=== PATIENT | male | born 1945 | race Caucasian/White ===

== ENCOUNTER 2017-10-25 23:57 | Emergency (ER) | payer MEDICARE ==
[~2017-10-25] VITALS: Ht 172.7 cm; Wt 85.0 kg
[2017-10-25] MEDS ORDERED: IOHEXOL 350 MG/ML 10 ML VIAL (for RAD DIAG) IVCONTRAST ONE (23:58)
[2017-10-26 00:17] VITALS: BP 149/85; PULSE 92; RESP 20; TEMP 98.7; O2SAT 97
--- NOTE | 2017-10-26 00:20 | PD ---
HPI Chief Complaint: abdominal swelling and pain Time Seen by Provider: 00:17 Travel History International Travel<30 days: No Contact w/Intl Traveler<30days: No Traveled to known affect area: No History of Present Illness HPI 72-year-old ill patient with history of previous alcohol use, cirrhosis, presents to the ER today for 3-4 weeks history of worsening increase in abdominal girth, leg swelling, and abdominal discomfort. He has been nauseous but denies any vomiting, diarrhea, or fevers. He is feeling fairly uncomfortable and unable to lay down tonight. He denies any chest pains, fevers , or other issues. Modifying Factors: None Associated Signs & Symptoms: Increasing abdominal girth, bilateral leg swelling , abdominal swelling, and discomfort Risk Factors: Cirrhosis PFSH Social History Tobacco Use: No Allergies-Medications (Allergen,Severity, Reaction): Coded Allergies: No Known Allergies (Unverified , 10/26/17) Reported Meds & Prescriptions Reported Meds & Active Scripts Active Reported Spironolactone 25 Mg Tab 25 Mg PO DAILY Finasteride (Finasteride (Alopecia)) 1 Mg Tab 5 Mg PO DAILY Lisinopril 10 Mg Tab 10 Mg PO DAILY Review of Systems Except as stated in HPI: all other systems reviewed are Neg Physical Exam Narrative GENERAL: Well-developed elderly white male patient currently in mild distress. Awake and oriented 3. SKIN: Focused skin assessment warm/dry. HEAD: Atraumatic. Normocephalic. EYES: Pupils equal and round. No scleral icterus. No injection or drainage. ENT: No nasal bleeding or discharge. Mucous membranes pink and moist. NECK: Trachea midline. No JVD. Supple. CARDIOVASCULAR: Regular rate and rhythm. No murmur appreciated. RESPIRATORY: No accessory muscle use. Decreased at the bases with mild basilar crackles bibasilarly. Breath sounds equal bilaterally. GASTROINTESTINAL: Abdomen soft, diffusely tender, moderately distended. Hepatic and splenic margins not palpable. MUSCULOSKELETAL: No obvious deformities. No clubbing. No cyanosis. No edema. NEUROLOGICAL: Awake and alert. No obvious cranial nerve deficits. Motor grossly within normal limits. Normal speech. PSYCHIATRIC: Appropriate mood and affect; insight and judgment normal. Data Data Last Documented VS Vital Signs Date Time Temp Pulse Resp B/P (MAP) Pulse Ox O2 Delivery O2 Flow Rate FiO2 10/26/17 01:30 94 24 153/67 (95) 97 Room Air 10/26/17 00:17 98.7 Orders Orders Complete Blood Count With Diff (10/26/17 00:17) Comprehensive Metabolic Panel (10/26/17 00:17) B-Type Natriuretic Peptide (10/26/17 00:17) Act Partial Throm Time (Ptt) (10/26/17 00:17) Prothrombin Time / Inr (Pt) (10/26/17 00:17) Ckmb (Isoenzyme) Profile (10/26/17 00:17) Troponin I (10/26/17 00:17) Iv Access Insert/Monitor (10/26/17 00:17) Electrocardiogram (10/26/17 00:17) Ecg Monitoring (10/26/17 00:17) Oximetry (10/26/17 00:17) Oxygen Administration (10/26/17 00:17) Chest, Single Ap (10/26/17 00:17) Sodium Chloride 0.9% Flush (Ns Flush) (10/26/17 00:30) Ct Abd/Pel W Iv Contrast(Rout) (10/26/17 00:17) CKMB (10/26/17 00:30) CKMB% (10/26/17 00:30) Iohexol 350 Inj (Omnipaque 350 Inj) (10/25/17 23:58) Furosemide Inj (Lasix Inj) (10/26/17 04:15) Ed Discharge Order (10/26/17 04:23) Labs Laboratory Tests Test 10/26/17 00:30 White Blood Count 5.5 TH/MM3 Red Blood Count 3.49 MIL/MM3 Hemoglobin 12.3 GM/DL Hematocrit 35.7 % Mean Corpuscular Volume 102.3 FL Mean Corpuscular Hemoglobin 35.4 PG Mean Corpuscular Hemoglobin Concent 34.6 % Red Cell Distribution Width 15.8 % Platelet Count 89 TH/MM3 Mean Platelet Volume 8.3 FL Neutrophils (%) (Auto) 40.9 % Lymphocytes (%) (Auto) 45.2 % Monocytes (%) (Auto) 12.1 % Eosinophils (%) (Auto) 1.0 % Basophils (%) (Auto) 0.8 % Neutrophils # (Auto) 2.2 TH/MM3 Lymphocytes # (Auto) 2.5 TH/MM3 Monocytes # (Auto) 0.7 TH/MM3 Eosinophils # (Auto) 0.1 TH/MM3 Basophils # (Auto) 0.0 TH/MM3 CBC Comment AUTO DIFF Differential Comment AUTO DIFF CONFIRMED Platelet Estimate LOW Platelet Morphology Comment NORMAL Prothrombin Time 11.3 SEC Prothromb Time International Ratio 1.1 RATIO Activated Partial Thromboplast Time 26.3 SEC Blood Urea Nitrogen 12 MG/DL Creatinine 0.81 MG/DL Random Glucose 90 MG/DL Total Protein 7.5 GM/DL Albumin 2.7 GM/DL Calcium Level 8.0 MG/DL Alkaline Phosphatase 204 U/L Aspartate Amino Transf (AST/SGOT) 127 U/L Alanine Aminotransferase (ALT/SGPT) 63 U/L Total Bilirubin 1.1 MG/DL Sodium Level 140 MEQ/L Potassium Level 3.8 MEQ/L Chloride Level 105 MEQ/L Carbon Dioxide Level 26.5 MEQ/L Anion Gap 9 MEQ/L Estimat Glomerular Filtration Rate 93 ML/MIN Total Creatine Kinase 354 U/L Creatine Kinase MB 7.1 NG/ML Creatine Kinase MB % 2.0 % Troponin I 0.02 NG/ML B-Type Natriuretic Peptide 18 PG/ML MDM Medical Decision Making Medical Screen Exam Complete: Yes Emergency Medical Condition: Yes Medical Record Reviewed: Yes Interpretation(s) Laboratory Tests Test 10/26/17 00:30 Red Blood Count 3.49 MIL/MM3 (4.50-5.90) Hemoglobin 12.3 GM/DL (13.0-17.0) Hematocrit 35.7 % (39.0-51.0) Mean Corpuscular Volume 102.3 FL (80.0-100.0) Mean Corpuscular Hemoglobin 35.4 PG (27.0-34.0) Platelet Count 89 TH/MM3 (150-450) Lymphocytes (%) (Auto) 45.2 % (9.0-44.0) Monocytes (%) (Auto) 12.1 % (0.0-8.0) Platelet Estimate LOW (NORMAL) Albumin 2.7 GM/DL (3.4-5.0) Calcium Level 8.0 MG/DL (8.5-10.1) Alkaline Phosphatase 204 U/L (45-117) Aspartate Amino Transf (AST/SGOT) 127 U/L (15-37) Total Bilirubin 1.1 MG/DL (0.2-1.0) Total Creatine Kinase 354 U/L (39-308) Creatine Kinase MB 7.1 NG/ML (0.5-3.6) Differential Diagnosis Worsening ascites versus CHF versus acute intra-abdominal processes versus bowel obstruction Narrative Course Labwork shows liver enzyme elevations consistent with his cirrhosis. Patient admits he is still drinking alcohol. CAT scan shows ascites with cirrhosis. No other acute intra-abdominal processes were identified. He apparently had been seen at [facility] for similar symptoms last week as well. Chest x -ray otherwise was unremarkable for any significant pulmonary edema. At this point, my plan would be to give him diuretics for his ascites. He will need to follow-up closely with his primary care physician and stop drinking alcohol. Return for any worsening in symptoms as necessary. The plan has been discussed with him and he states understanding. Diagnosis Primary Impression: Ascites Med/Other Pt SpecificInfo: Prescription(s) given Scripts Furosemide (Lasix) 20 Mg Tab 20 MG PO DAILY, #10 TAB 0 Refills Prov: Treva Lopez MD 10/26/17 Disposition: 01 DISCHARGE HOME Condition: Stable Treva Lopez MD Oct 26, 2017 00:20
[2017-10-26] MEDS ORDERED: LISI10TA3 PO (00:30)
[2017-10-26] MEDS ORDERED: FINA1TAB16 PO (00:30)
[2017-10-26] MEDS ORDERED: SODIUM CHLORIDE 0.9% FLUSH 10 ML FLUSH IVF PRN (00:30)
[2017-10-26] MEDS ORDERED: SPIR25TA PO (00:30)
--- NOTE | 2017-10-26 00:37 | RADRPT ---
EXAM DATE/TIME: 10/26/2017 00:27 [facility] COMPARISON: No previous studies available for comparison. INDICATIONS : Shortness of breath. MEDICAL HISTORY : None. SURGICAL HISTORY : None. ENCOUNTER: Initial ACUITY: 1 day PAIN SCORE: 0/10 LOCATION: Bilateral chest FINDINGS: There is minimal linear density at the lateral left base. The lungs are otherwise clear. The heart si ze is normal. CONCLUSION: Suspected minimal atelectasis at the lateral left base. Sampson New MD on October 26, 2017 at 0:34 Board Certified Radiologist. This report was verified electronically.
[2017-10-26 01:30] VITALS: BP 153/67; PULSE 94; RESP 24; O2SAT 97
[2017-10-26 01:43] LABS: AUTOMATED NEUTROPHIL # 2.2 TH/MM3 (1.8-7.7); BASOPHIL % 0.8 % (0.0-2.0); EOSINOPHIL # 0.1 TH/MM3 (0-0.4); HEMATOCRIT 35.7 % (39.0-51.0); HEMOGLOBIN 12.3 GM/DL (13.0-17.0); LYMPH % 45.2 % (9.0-44.0); LYMPHOCYTE # 2.5 TH/MM3 (1.0-4.8); MEAN CELL VOLUME 102.3 FL (80.0-100.0); MEAN CORPUSCULAR HEMOGLOBIN 35.4 PG (27.0-34.0); MEAN CORPUSCULAR HGB CONC 34.6 % (32.0-36.0); MEAN PLATELET VOLUME 8.3 FL (7.0-11.0); MONO % 12.1 % (0.0-8.0); MONOCYTE # 0.7 TH/MM3 (0-0.9); NEUT % 40.9 % (16.0-70.0); PLATELET COUNT 89 TH/MM3 (150-450); RED BLOOD COUNT 3.49 MIL/MM3 (4.50-5.90); RED CELL DISTRIBUTION WIDTH 15.8 % (11.6-17.2); WHITE BLOOD COUNT 5.5 TH/MM3 (4.0-11.0)
[2017-10-26 01:56] LABS: ALBUMIN 2.7 GM/DL (3.4-5.0); ALT (GPT) 63 U/L (12-78); AST (GOT) 127 U/L (15-37); BICARBONATE 26.5 MEQ/L (21.0-32.0); BLOOD UREA NITROGEN 12 MG/DL (7-18); CHLORIDE 105 MEQ/L (98-107); CREATININE 0.81 MG/DL (0.60-1.30); GLOMERULAR FILTRATION RATE 93 ML/MIN (>89); GLUCOSE,RANDOM 90 MG/DL (74-106); INTERNATIONAL NORMALIZED RATIO 1.1 RATIO; PROTHROMBIN TIME - PATIENT 11.3 SEC (9.8-11.6); SODIUM (NA) 140 MEQ/L (136-145)
[2017-10-26 02:00] LABS: ALKALINE PHOSPHATASE 204 U/L (45-117); TOTAL BILIRUBIN ADULT 1.1 MG/DL (0.2-1.0); TOTAL PROTEIN 7.5 GM/DL (6.4-8.2); TROPONIN I 0.02 NG/ML (0.02-0.05)
--- NOTE | 2017-10-26 03:33 | RADRPT ---
EXAM DATE/TIME: 10/26/2017 03:03 [facility] COMPARISON: No previous studies available for comparison. INDICATIONS : Abdomen pain past 3-4 weeks. IV CONTRAST: 95 cc Omnipaque 350 (iohexol) IV ORAL CONTRAST: No oral contrast ingested. RADIATION DOSE: 10.30 CTDIvol (mGy) MEDICAL HISTORY : Hypertension. SURGICAL HISTORY : Femoral stent ENCOUNTER: Initial ACUITY: 3 weeks PAIN SCALE: 5/10 LOCATION: Bilateral abdomen TECHNIQUE: Volumetric scanning of the abdomen and pelvis was performed. Using automated exposure control and ad justment of the mA and/or kV according to patient size, radiation dose was kept as low as reasonably achievable to obtain optimal diagnostic quality images. DICOM format image data is available electro nically for review and comparison. FINDINGS: LOWER LUNGS: The visualized lower lungs are clear. LIVER: The liver appears small. There is atrophy of the right lobe. SPLEEN: Normal size without lesion. PANCREAS: Within normal limits. KIDNEYS: Normal in size and shape. There is no mass, stone or hydronephrosis. ADRENAL GLANDS: Within normal limits. VASCULAR: There is no aortic aneurysm. Atherosclerotic calcifications are seen. BOWEL/MESENTERY: There is a moderate amount of ascites seen. There appears to be a mild hiatal hernia. There are diver ticula seen throughout the colon being most numerous in the sigmoid region. ABDOMINAL WALL: Within normal limits. RETROPERITONEUM: There is no lymphadenopathy. BLADDER: No wall thickening or mass. REPRODUCTIVE: The prostate is enlarged. Prostatic calcifications are present. INGUINAL: There is no lymphadenopathy or hernia. MUSCULOSKELETAL: Within normal limits for patient age. CONCLUSION: 1. Moderate ascites with morphological changes suggestive of possible cirrhosis with atrophy of the r ight lobe. 2. Colonic diverticula. 3. Mild hiatal hernia. Sampson New MD on October 26, 2017 at 3:26 Board Certified Radiologist. This report was verified electronically.
[2017-10-26] MEDS ORDERED: FUROSEMIDE 40 MG/4 ML VIAL IV PUSH ONE (04:15)
[2017-10-26] MEDS ORDERED: FURO1TAB62 PO (04:29)
[2017-10-26 05:40] VITALS: BP 168/79
--- NOTE | 2017-10-26 12:07 | EKG ---
Date Performed: 10/26/2017 Time Performed: 00:38:36 PTAGE: 72 years EKG: Sinus rhythm INFERIOR MYOCARDIAL INFARCTION ABNORMAL ECG NO PREVIOUS TRACING DOCTOR: Lowell Schofield Interpretating Date/Time 10/26/2017 12:05:29
== END 2017-10-26 05:41 | disposition home or self-care (01) ==
LOC: NEPC 23:57
DX: R18.8 Other ascites (principal); R94.31 Abnormal electrocardiogram [ECG] [EKG]; R06.02 Shortness of breath
CPT/HCPCS: 71045; 74177; 80053; 82550; 82552; 83880; 84484; 85025; 85610; 85730; 93005; 96374; 99285; J1940; Q9967

== ENCOUNTER → 2018-01-01 | Outpatient (CLI) | payer MEDICARE ==
[~2018-01-01] MED LIST: FINA1TAB16 PO; FURO1TAB62 PO; LISI10TA3 PO; SPIR25TA PO
--- NOTE | 2018-01-01 14:42 | RADRPT ---
EXAM DATE/TIME: 01/01/2018 00:00 [facility] COMPARISON: No previous studies available for comparison. OUTSIDE STUDY REVIEWED: INDICATIONS : CT guided liver mass biopsy FINDINGS: Outside CTs and MRI were reviewed. Patient has a cirrhotic appearing liver with moderate ascites . This increases the risk of post biopsy bleeding. In addition, the only lesion that can be identifie d on CT is a small enhancing nodule in the dome. Additional nodules are identified on MRI cannot be v isualized on the CT studies. As such, I do not believe patient would be amenable to CT-guided biopsy at this juncture. RECOMMENDATION: Followup CT scan of the abdomen with and without contrast in 3-6 months Lei Valerio MD on January 01, 2018 at 14:38 Board Certified Radiologist. This report was verified electronically.
== END ==
LOC: HRAD 12:45
PROVIDERS: ATTEND Internal Medicine Hematology & Oncology
DX: K76.9 Liver disease, unspecified (principal)
CPT/HCPCS: 76140

== ENCOUNTER 2018-05-12 07:35 | Observation (INO) ==
[2018-05-12] MEDS ORDERED: Pantoprazole Inj 40 MG Vial IV.PUSH ONE (08:30)
[2018-05-12] MEDS ORDERED: Ketorolac Inj 30 MG/ML (IVP) Vial IV.PUSH ONE (08:30)
[2018-05-12] MEDS ORDERED: Dexamethasone Inj 20 MG/5 ML Vial IV.SIG ONE (08:30)
[2018-05-12] MEDS ORDERED: fentaNYL Citrate Inj 250 MCG/5 ML Ampul ONE (09:46)
[2018-05-12] MEDS ORDERED: DOXOrubicin Inj 10 MG/5 ML VIAL IV.PUSH ONE (10:00)
[2018-05-12] MEDS ORDERED: Heparin 10,000 UNITS/10 ML Vial (for IV use) ONE (10:32)
--- NOTE | 2018-05-12 11:59 | P.RAD ---
Post Procedure Progress Note - Procedure Information Procedure Date: 05/12/18 Supervising Radiologist: Christian Buchanan MD Estimated blood loss (mL): 0 Anesthesia: Conscious Sedation - Plan of Activity Patient to Unit: ROPU Patient Condition: Good See PACS Report for procedural detail/treatment.
[2018-05-12] MEDS ORDERED: Sod Chloride 0.9% Inj 1,000 ML IV.CONT SCH (12:00)
[2018-05-12] MEDS ORDERED: Naloxone Inj 0.4 MG/ML Vial IV.PUSH PRN (12:10)
--- NOTE | 2018-05-12 13:47 | P.CON ---
History of Present Illness Consult date: 05/12/18 Requesting Physician: Christian Buchanan Reason for Consult: Medical management. Primary Care Provider: UNKNOWN Family Provider: Chanda Petit Chief Complaint: Brought in for Chemoembolization History of Present Illness: This is a pleasant 72 y/o male with previous Alcohol abuse, Cirrhosis, who was seen initially in Emergency room due to abdominal distention, for 3-4 weeks history of worsening increase in abdominal girth, leg swelling, and abdominal discomfort. associated Nausea but no vomit, denied diarrhea, or fever , the workup in ER gave Cirrhosis he still drinking alcohol, CAT scan shows ascites with cirrhosis. No other acute intra-abdominal processes were identified. He apparently had been seen at [facility] for similar symptoms last week as well. Chest x-ray otherwise was unremarkable for any significant pulmonary edema. At this point, my plan would be to give him diuretics for his ascites. He will need to follow-up closely with his primary care physician and stop drinking alcohol. he has multiple masses on his liver and with suspected hepatocellular Carcinoma , and high risk for Biopsy was recommended to be followed and receive management by Interventional radiology at this time status post chemoembolization, he will remain in house for 23 hour observation by his Primary interventional insurance plan specialist and discharge, will continue Radiation therapy. Review of Systems All other systems reviewed negative except as stated in HPI PMFSH - History History Provided By: Patient - Medical History Medical History: Medical History (Last Updated 05/12/18 @ 17:08 by Bro Enciso MD) Cataract Arthritis Cirrhosis HTN (hypertension) PVD (peripheral vascular disease) - Surgical History Surgical History: Surgical History (Last Updated 05/12/18 @ 17:09 by Bro Enciso MD) H/O rotator cuff surgery - Family History Family History: Family History (Last Updated 05/12/18 @ 17:10 by Bro Enciso MD) Grandparent No problems noted. Father Family history of acute myocardial infarction Brother Prostate cancer Other Stroke - Tobacco History Second Hand Smoke Exposure: No Tobacco Use In Past 30 Days: No Smoking Status: Former smoker - Alcohol History How Often Do You Have a Drink Containing Alcohol: Never - Substance Use History Substance History: No History of Abuse - Travel History Recent Travel in the [place] Within the Last 8 Weeks: No Recent Travel Out of the Country Within the Last 8 Weeks: No Medications and Allergies Active Medications: Active Medications Sodium Chloride (Ns Inj) 1,000 mls @ 30 mls/hr IV.SIG .Q24H CRYSTAL Sodium Chloride (Ns Inj) 1,000 mls @ 100 mls/hr IV.CONT .Q10H CRYSTAL Stop: 05/12/18 21:59 Hydromorphone/Sodium Chloride (Dilaudid Logistics Planning Engineer Inj) 6 mg in 30 mls @ 0 mls/hr MANUFACTURING PLANT TECHNICIAN UNSCH PRN PRN Reason: per MANUFACTURING PLANT TECHNICIAN parameters Naloxone HCl (Narcan Inj) 0.4 mg IV.PUSH PRN PRN PRN Reason: SEE LABEL COMMENTS Ondansetron HCl (Zofran Inj) 4 mg IV.PUSH Q6H PRN PRN Reason: NAUSEA Allergies Allergy/AdvReac Type Severity Reaction Status Date / Time aspirin Allergy Abdominal Verified 04/30/18 08:06 Pain Penicillins Allergy Drowsiness Verified 04/30/18 08:06 Sulfa (Sulfonamide Allergy Flushing Verified 04/30/18 08:06 Antibiotics) Home Medications Medication Instructions Recorded Confirmed Type finasteride 5 mg PO DAILY 04/30/18 05/12/18 History spironolactone 100 mg PO DAILY 04/30/18 05/12/18 History lisinopril 10 mg PO DAILY 05/12/18 05/12/18 History Physical Exam Vital signs: Vital Signs 05/12/18 07:49 05/12/18 12:00 05/12/18 12:15 Temperature 97.9 F 98.1 F Pulse Rate 80 80 83 Respiratory Rate 20 16 16 Blood Pressure 150/79 H 161/86 H 160/93 H Pulse Oximetry 97 94 L 94 L Intake & Output 05/11/18 05/12/18 05/12/18 18:59 06:59 18:59 Weight 77.467 kg Other: Weight On Admission 77.111 kg Narrative: GENERAL: Well-developed elderly white male patient currently in mild distress. Awake and oriented 3. SKIN: Focused skin assessment warm/dry. HEAD: Atraumatic. Normocephalic. EYES: Pupils equal and round. No scleral icterus. No injection or drainage. ENT: No nasal bleeding or discharge. Mucous membranes pink and moist. NECK: Trachea midline. No JVD. Supple. CARDIOVASCULAR: Regular rate and rhythm. No murmur appreciated. RESPIRATORY: No accessory muscle use. Decreased at the bases with mild basilar crackles bibasilarly. Breath sounds equal bilaterally. GASTROINTESTINAL: Abdomen soft, diffusely tender, moderately distended. MUSCULOSKELETAL: No obvious deformities. No clubbing. No cyanosis. No edema. NEUROLOGICAL: Awake and alert. No obvious cranial nerve deficits. Motor grossly within normal limits. Normal speech. PSYCHIATRIC: Appropriate mood and affect; insight and judgment normal. Assessment and Plan - Plan 1. Suspected Hepatocellular Carcinoma sent by outbound sales specialist Doctor Mark Anthony Live for Interventional Radiology management he has high risk for Biopsy, had today chemoembolization of tumors and will continue Radiation therapy, will be hospitalized for 23 hour observation 2. Cirrhosis stable/Alcoholic Hepatitis 3. . Hypertension controlled continue Home medicines 4. PAD by history DVT prophylaxis SCDs. Code Status: Full Code. Discussed Condition With: patient and Nurse. Discharge Planning: as per Attending physician.
--- NOTE | 2018-05-12 13:50 | IR ---
EXAM DATE: 05/12/2018 12:24 PM EDT AGE/SEX: 72 years / Male INDICATIONS: Patient presents with liver mass in need of chemoembolization of the liver CLINICAL DATA: This is the patient's subsequent encounter. Patient reports that signs and symptoms h ave been present for 1 week and indicates a pain score of 0/10. MEDICAL/SURGICAL HISTORY: . Cirrhosis, HTN, Arthritis, PVD. . Rotator cuff, Left hand surgery. COMPARISON: No prior exams available for comparison. FLUORO TIME (min): 18.8 IMAGE SERIES: 12 ACCESS SITE: Right femoral artery SEDATION TIME (min): 75 CONTRAST (cc): 78 cc Visipaque (iodixanol) MEDICATION(S): 3 mg midazolam (Versed) IV 150 mcg fentanyl (Sublimaze) IV 3,000 units Heparin IV 1 g Vancomycin IV Vancomycin within 2 hrs of procedure, Ancef (or alternative) within 1 hr of procedure. DEVICE(S): Right hepatic artery LC beads Doxorubicin 75mg PROCEDURE : 1. Ultrasound-guided puncture of the access site. 2. Conscious sedation with continuous EKG and Oximetry monitoring. 3. Selective catheter placement in the SMA with selective angiography 4. Subselective catheter placement in the proper hepatic artery through gastroduodenal collaterals f rom the SMA with angiography 5. Super selective catheter placement in the right hepatic artery with angiography 6. Superselective embolization of the right hepatic arteries supplying segment 7. The risks, benefits and alternatives to the procedure were explained and verbal and written consent w as obtained. The site was prepped in sterile fashion. Full sterile technique was used, including ca p, mask, sterile gloves and gown and a large sterile sheet. Hand hygiene and 2% chlorhexidine and/or betadine/alcohol prep was utilized per protocol for cutaneous antisepsis. Sterile gel and sterile p robe cover were utilized for ultrasound guidance. The skin and subcutaneous tissues were infiltrated with local anesthetic solution. With ultrasound and fluoroscopic guidance the selected artery was punctured and a vascular sheath was placed. 4 [place] SOS 3 catheter was advanced into the SMA and angiography was performed. This again confirms finding of celiac occlusion with tortuous collateral recanalization of the gastroduodenal ar peterson and retrograde opacification of the celiac artery. A renegade microcatheter and Fathom 16 wire w ere then successfully advanced through a GDA collaterals from the SMA to the proper hepatic artery. T his was very challenging due to tortuous small-caliber collaterals. Angiography was then performed de monstrating abnormal enhancement near the dome of the liver corresponding to segment [address] e xam. Catheter was therefore repositioned into a right hepatic artery to supply segment 7 [address] [facility] [address] m CT exam was performed. This did not demonstrate appropriate supply the segment 7 masses in the cath eter was therefore repositioned. Repeat Cone beam CT exam was performed now demonstrating supply to t he segment 7 masses. The segmental right hepatic arteries were subsequently embolized with Annabella beads infused with 75 mg of Adriamycin. Postembolization angiography demonstrated near stasis of flow in t he embolized branches. Catheters and wires were therefore removed. The puncture site was closed with manual pressure and hemostasis was obtained. The patient tolerated the procedure well and there were no complications. Conscious sedation was performed with the prescribed dosages and duration as above in the presence of an independent trained radiology nurse to assist in the monitoring of the patient. EKG and oximetry remained stable throughout the procedure. CONCLUSION: 1. Retrograde cannulation of the right hepatic artery via SMA GDA collaterals with superselective DE B TACE embolization of the segment 7 right hepatic arteries (Annabella beads infused with 75 mg of IV Christie amycin). PLAN: Tentative plan for microwave ablation in 7-14 days. Electronically signed by: Christian Buchanan MD 05/12/2018 1:49 PM EDT
[2018-05-12] MEDS: HYDROmorphone PCA Inj 6 MG/30 ML PCA.VIAL PCA PRN (13:51)
[2018-05-12] MEDS: Sod Chloride 0.9% Inj 1,000 ML IV.SIG SCH (21:57)
[2018-05-13 00:09] VITALS: O2SAT 95
[2018-05-13] MEDS: HYDROmorphone PCA Inj 6 MG/30 ML PCA.VIAL PCA PRN (05:02)
[2018-05-13 05:06] VITALS: RESP 16
[2018-05-13] MEDS ORDERED: Lisinopril 10 MG Tablet PO SCH (09:00)
[2018-05-13] MEDS ORDERED: Finasteride 5 MG Tablet PO SCH (09:00)
[2018-05-13] MEDS: Sod Chloride 0.9% Inj 1,000 ML IV.SIG SCH (10:32)
[2018-05-13 10:38] VITALS: PULSE 102
[2018-05-13 10:42] VITALS: BP 164/90; TEMP 98.1
[2018-05-13] MEDS ORDERED: Morphine Inj 4 MG/ML Vial IV.PUSH PRN (11:28)
[2018-05-13] MEDS ORDERED: Naloxone Inj 0.4 MG/ML Vial IV.PUSH PRN ×2 (11:28→11:33)
--- NOTE | 2018-05-13 11:32 | P.PNIM ---
Subjective Interval history: Patient reports the pain is controlled on MATTRESS AND BOXSPRINGS SUPERVISOR. Denies any chest pain or shortness of breath. Denies nausea vomiting. He feels like going home today after pain is controlled. Physical Exam Vital signs: Vital Signs 05/12/18 12:00 05/12/18 12:15 05/12/18 12:30 Temperature 98.1 F Pulse Rate 80 83 82 Respiratory Rate 16 16 16 Blood Pressure 161/86 H 160/93 H 158/85 H Pulse Oximetry 94 L 94 L 95 05/12/18 13:00 05/12/18 14:00 05/12/18 14:30 Temperature Pulse Rate 78 93 H 89 Respiratory Rate 16 20 16 Blood Pressure 157/92 H 140/80 166/80 H Pulse Oximetry 96 97 94 L 05/12/18 15:30 05/12/18 17:35 05/12/18 19:50 Temperature 97.6 F Pulse Rate 89 98 H Respiratory Rate 16 16 16 Blood Pressure 160/78 H 160/87 H Pulse Oximetry 95 93 L 05/12/18 20:00 05/13/18 00:00 05/13/18 04:00 Temperature 97.5 F L 98 F 97.7 F Pulse Rate 106 H 105 H 99 H Respiratory Rate 16 17 16 Blood Pressure 149/83 H 182/89 H 169/88 H Pulse Oximetry 94 L 95 95 05/13/18 06:31 05/13/18 08:00 05/13/18 09:30 Temperature 98.1 F Pulse Rate 102 H Respiratory Rate 16 16 16 Blood Pressure 164/90 H Pulse Oximetry 95 Intake & Output 05/12/18 05/13/18 05/13/18 18:59 06:59 18:59 Intake Total 1100 / 1100 Balance 1100 / 1100 Weight 77.467 kg 79.5 kg Intake: IV 1000 / 1000 NS Inj 1,000 ML @ 100 mls/hr IV 1000 / 1000 .CONT .Q10H CRYST[facility] Rx#:[id number] Oral 100 / 100 Other: # Voids 1 Date of Last Bowel Movement 05/12/18 05/12/18 05/12/18 Weight On Admission 77.111 kg Narrative: GENERAL: Patient sitting up in chair. Appears comfortable. Alert and oriented 3. SKIN: Warm and dry. HEAD: Normocephalic. EYES: No scleral icterus. No injection or drainage. NECK: Supple, trachea midline. No JVD. CARDIOVASCULAR: Regular rate and rhythm without murmurs, gallops, or rubs. RESPIRATORY: Breath sounds equal bilaterally. No accessory muscle use. GASTROINTESTINAL: Abdomen soft, non-tender, nondistended. MUSCULOSKELETAL: No cyanosis, or edema. BACK: Nontender without obvious deformity. No CVA tenderness. Results - Imaging Impressions Embolization, Transcatheter 05/12/18 00:00 CONCLUSION: 1. Retrograde cannulation of the right hepatic artery via SMA GDA collaterals with superselective KRISHNA TACE embolization of the segment 7 right hepatic arteries (Annabella beads infused with 75 mg of IV Adriamycin). PLAN: Tentative plan for microwave ablation in 7-14 days. Assessment and Plan - Plan //Suspected Hepatocellular Carcinoma sent by mortgage servicing specialist Doctor Mark Anthony Live for Interventional Radiology management he has high risk for Biopsy, had today chemoembolization of tumors and will continue Radiation therapy, will be hospitalized for 23 hour observation = Discussed with interventional radiology, who is seen the patient this morning and is cleared for discharge after pain controlled on p.o. regimen. Will switch to by mouth pain regimen. If pain control, can discharge this afternoon. Follow-up with interventional radiology as outpatient as already scheduled. //Cirrhosis stable/Alcoholic Hepatitis //Hypertension controlled continue Home medicines = Some high blood pressures, likely secondary to pain. Home medications this morning. //PAD by history //DVT prophylaxis SCDs. Discussed Condition With: Patient, nurse, interventional radiology
== END 2018-05-13 17:37 | disposition home or self-care (01) ==
LOC: HCIN 07:35 → HROP 07:35 → HRIP 07:36 → HCIN 16:55 → HROP 05-13 17:37
PROVIDERS: ADMIT Internal Medicine; ATTEND Internal Medicine
DX: I77.4 Celiac artery compression syndrome; I10 Essential (primary) hypertension; I73.9 Peripheral vascular disease, unspecified; C22.0 Liver cell carcinoma; K74.60 Unspecified cirrhosis of liver; F10.20 Alcohol dependence, uncomplicated; K70.11 Alcoholic hepatitis with ascites; Z87.891 Personal history of nicotine dependence

== ENCOUNTER 2018-05-21 09:55 | Inpatient (IN) ==
[2018-05-21] MEDS ORDERED: Levofloxacin 500 mg Premix Inj 500 MG/100 ML PIGGYBACK IV.SIG SCH (10:30)
[2018-05-21] MEDS ORDERED: Chlorhexidine Gluconate 2% 1 Pack (2 Cloths) TOPICAL SCH (10:45)
[2018-05-21] MEDS ORDERED: Metoprolol Tartrate 25 MG Tablet PO SCH (10:45)
[2018-05-21] MEDS ORDERED: Sodium Chlor 0.9% Inj 500 ML IV.SIG SCH (11:00)
[2018-05-21 11:05] LABS: Baso % (Auto) 0.3 % (0.0-2.0); Hematocrit 47.5 % (39.0-51.0); Lymph # (Auto) 0.5 th/mm3 (1.0-4.8); Mean Corpuscular HGB Conc 33.7 % (32.0-36.0); Mean Corpuscular Hemoglobin 35.7 pg (27.0-34.0); Mean Corpuscular Volume 105.9 fL (80.0-100.0); Mean Platelet Volume 9.5 fL (7.0-11.0); Mono # (Auto) 0.5 th/mm3 (0.0-0.9); Neut # (Auto) 5.3 th/mm3 (1.8-7.7); Neut % (Auto) 83.7 % (16.0-70.0); Platelet Count 62 th/mm3 (150-450); Red Blood Count 4.49 mil/mm3 (4.50-5.90); Red Cell Distribution Width 15.2 % (11.6-17.2); White Blood Count 6.3 th/mm3 (4.0-11.0)
[2018-05-21 11:16] LABS: Activated Partial Thrombo Time 24.3 sec (24.3-30.1); INR 1.3 Ratio; Prothrombin Time 13.5 sec (9.8-11.6)
[2018-05-21 11:23] LABS: Anion Gap 9 meq/L (5-15); Blood Urea Nitrogen 40 mg/dL (7-18); Calcium 9.2 mg/dL (8.5-10.1); Carbon Dioxide 24.8 meq/L (21.0-32.0); Chloride 94 meq/L (98-107); Glomerular Filtration Rate 60 mL/min (>89); Glucose,Random 83 mg/dL (74-106); Potassium 5.1 meq/L (3.5-5.1); Sodium 128 meq/L (136-145)
[2018-05-21] MEDS ORDERED: Lidocaine 1%/Epinephrine 1:100,000 Inj 20 ML Vial ONE (11:58)
[2018-05-21] MEDS ORDERED: Neostigmine Inj 5 MG/5 ML Syringe IV.PUSH ONE (12:00)
[2018-05-21] MEDS ORDERED: Glycopyrrolate Inj 1 MG/5 ML Syringe IV.PUSH ONE (12:00)
[2018-05-21] MEDS ORDERED: Succinylcholine Inj 100 MG/5 ML Syringe IV.PUSH ONE (12:00)
[2018-05-21] MEDS ORDERED: Lidocaine PF 1% Inj 5 ML Syringe INFILTRATN ONE (12:00)
[2018-05-21 12:56] LABS: Albumin 2.9 g/dL (3.4-5.0); Aspartate Aminotransferase 78 U/L (15-37)
[2018-05-21 12:59] LABS: Alanine Aminotransferase 256 U/L (12-78); Total Protein 7.9 g/dL (6.4-8.2)
[2018-05-21 13:00] LABS: Alkaline Phosphatase 178 U/L (45-117)
[2018-05-21] MEDS ORDERED: fentaNYL Citrate Inj 100 MCG/2 ML Ampul ONE (15:26)
[2018-05-21] MEDS ORDERED: *morphine SULFATE 4 MG/ML PERIprocedure ONLY ONE (15:37)
--- NOTE | 2018-05-21 16:13 | P.RAD ---
Post CT Procedure Prog Note - Procedure Information Procedure Date: 05/21/18 Supervising Radiologist: Christian Buchanan MD Estimated blood loss (mL): 10 Anesthesia: General - Plan of Activity Patient to Unit: PACU Patient condition: Good See PACS Report for procedural detail/treatment.
--- NOTE | 2018-05-21 16:15 | CT ---
EXAM DATE: 05/21/2018 3:54 PM EDT AGE/SEX: 72 years / Male INDICATIONS: 72-year-old male with history of hepatocellular carcinoma in segment 7 and 8 of the [facility] er. Patient is status post Rajiv KRISHNA chemoembolization and now presents for thermal ablation. CLINICAL DATA: This is the patient's initial encounter. Patient reports that signs and symptoms have been present for 1 day and indicates a pain score of 0/10. MEDICAL/SURGICAL HISTORY: Hypertension. Cirrhosis. None. COMPARISON: No prior exams available for comparison. DEVICE(S): . Emprint ablation probe . . PROCEDURE: CT guided microwave ablation The risks, benefits and alternatives to the procedure were explained and verbal and written consent w as obtained. Using automated exposure control and adjustment of the mA and/or kV according to patient size, radiation dose was kept as low as reasonably achievable to obtain optimal diagnostic quality i mages. The site was prepped in sterile fashion. Full sterile technique was used, including cap, mask, sterile gloves and gown and a large sterile sheet. Hand hygiene and 2% chlorhexidine and/or betadine /alcohol prep was utilized per protocol for cutaneous antisepsis. The skin and subcutaneous tissues w ere infiltrated with local anesthetic solution. DICOM format image data is available electronically f or review and comparison. CT examination was performed through the liver. This demonstrates dense RAJIV arterial beads throughou t the posterior right lobe of the liver. The 2.5 cm segment 8 mass near the dome demonstrates periphe ral bead retention. The second 1.9 cm segment 7 mass is not well demonstrated and did not retain suff icient beads to discern from background liver. Therefore, decision was made to proceed with ablation of the segment 8 mass only. A direct window to the mass could not be localized. Therefore, transpleur al window was utilized. A 19-gauge blunt tip stylet was advanced into the pleural space and iatrogeni c hydropneumothorax utilizing approximately 800 cc of sterile water and approximately 200 cc of air w as performed. An 8 [place] catheter was advanced into the pleural space. There was now sufficient wind ow established to the segment 8 mass. Therefore, a iPipelinerint microwave ablation probe was adv anced into the mass under careful CT guidance. Mass was subsequently ablated at 100 W for 5 minutes w ith imaging performed at 2 minutes and 5 minutes demonstrating appropriate progression of the ablatio n zone. Probe was then removed. Approximately 600 cc of slightly serosanguineous fluid was then aspir ated through the pleural catheter and the catheter was subsequently placed on Pleur-evac suction. Fin al postprocedural CT examination demonstrates no significant complications. Patient tolerated the procedure well and there were no immediate postprocedure complications. CONCLUSION: 1. Challenging but technically successful CT-guided microwave ablation requiring iatrogenic hydropne umothorax to establish window to the segment 8 mass. 2. The segment 7 mass did not retain radiodense beads from arterial embolization. Uncertain if this reflects a true lesion and therefore this lesion was not ablated. PLAN: Patient will be admitted for overnight observation and symptom management. Will require follow- up liver mass MRI examination in approximately 6-8 weeks. Will consider additional treatments for the segment 7 mass pending MRI findings. Electronically signed by: Christian Buchanan MD 05/21/2018 4:13 PM EDT
[2018-05-21] MEDS ORDERED: *Enalaprilat Inj 1.25 MG/ML Vial IV.PUSH ONE ×2 (16:18→17:02)
--- NOTE | 2018-05-21 16:27 | P.CON ---
History of Present Illness Consult date: 05/21/18 Requesting Physician: Christian Buchanan Reason for Consult: MEDICAL MANAGEMENT Primary Care Provider: Chanda Petit Family Provider: Chanda Petit Chief Complaint: Brought for Interventional radiology management. History of Present Illness: This is a pleasant 72 y/o male with previous Alcohol abuse, Cirrhosis, who was seen initially in Emergency room due to abdominal distention, for 3-4 weeks history of worsening increase in abdominal girth, leg swelling, and abdominal discomfort. associated Nausea but no vomit, denied diarrhea, or fever , the workup in ER gave Cirrhosis he still drinking alcohol, CAT scan shows ascites with cirrhosis. No other acute intra-abdominal processes were identified. He apparently had been seen at [facility] for similar symptoms last week as well. Chest x-ray otherwise was unremarkable for any significant pulmonary edema. At this point, my plan would be to give him diuretics for his ascites. He will need to follow-up closely with his primary care physician and stop drinking alcohol. he has multiple masses on his liver and with suspected hepatocellular Carcinoma , and high risk for Biopsy was recommended to be followed and receive management by Interventional radiology at this time status post chemoembolization, he will remain in house for 23 hour observation by his Primary interventional mobility specialist and discharge, will continue Radiation therapy. Today brought for Liver Biopsy and Cryoablation of the liver mass due to technical complications was necessary to perform Transpleural approach and left chest tube to the right chest. Review of Systems All other systems reviewed negative except as stated in HPI PMFSH - History History Provided By: Patient - Medical History Medical History: Medical History (Last Updated 05/21/18 @ 10:34 by Charley Santos RN) Cataract (Acute) PVD (peripheral vascular disease) (Acute) Arthritis (Acute) HTN (hypertension) (Acute) Cirrhosis (Acute) - Surgical History Surgical History: Surgical History (Last Updated 05/21/18 @ 10:34 by Charley Santos RN) H/O rotator cuff surgery (Acute) - Family History Family History: Family History (Last Updated 05/12/18 @ 17:10 by Bro Enciso MD) Grandparent No problems noted. Father Family history of acute myocardial infarction Brother Prostate cancer Other Stroke - Tobacco History Second Hand Smoke Exposure: No Smoking Status: Never smoker - Alcohol History How Often Do You Have a Drink Containing Alcohol: Monthly or less - Substance Use History Substance History: No History of Abuse - Travel History Recent Travel in the [place] Within the Last 8 Weeks: No Recent Travel Out of the Country Within the Last 8 Weeks: No Medications and Allergies Active Medications: Active Medications Chlorhexidine Gluconate (Chlorhexidine 2% Cloth) 3 pack TOPICAL [employer]AR[employer]PER[employer] [facility] Stop: 05/24/18 10:31 Sodium Chloride (Ns Inj) 1,000 mls @ 30 mls/hr IV.SIG .Q24H [facility] Levofloxacin/Dextrose (Levaquin 500 Mg Premix Inj) 500 mg in 100 mls @ 100 mls/ hr IV.SIG [employer] [facility] Stop: 05/25/18 10:29 Lactated Ringer's (Lr 1000 Ml Inj) 1,000 mls @ 30 mls/hr IV.SIG .Q24H [facility] Stop: 05/24/18 10:31 Sodium Chloride (Ns Inj) 500 mls @ 30 mls/hr IV.SIG .Q10H [facility] Stop: 05/24/18 10:31 Metoprolol Tartrate (Lopressor) 25 mg PO [employer] [facility] Stop: 05/24/18 10:31 Miscellaneous Information ([facility] [place] Nursing Information) 1 each OTHER UNSCH PRN PRN Reason: SEE LABEL COMMENTS Stop: 05/22/18 15:18 Povidone Iodine (Betadine 5% Antisepsis Kit) 1 applicatio EACH NARE [employer] OPER[employer] [facility] Stop: 05/24/18 10:31 Allergies Allergy/AdvReac Type Severity Reaction Status Date / Time aspirin Allergy Abdominal Verified 05/21/18 10:11 Pain Penicillins Allergy Drowsiness Verified 05/21/18 10:11 Sulfa (Sulfonamide Allergy Flushing Verified 05/21/18 10:11 Antibiotics) Home Medications Medication Instructions Recorded Confirmed Type finasteride 5 mg PO DAILY 04/30/18 05/21/18 History spironolactone 100 mg PO DAILY 04/30/18 05/21/18 History lisinopril 10 mg PO DAILY 05/12/18 05/21/18 History dexamethasone 4 mg PO TID 05/21/18 05/21/18 History lactulose 1 g PO DAILY 05/21/18 05/21/18 History prochlorperazine 10 mg PO TID 05/21/18 05/21/18 History tramadol 50 mg PO Q6H 05/21/18 05/21/18 History Physical Exam Vital signs: Vital Signs 05/21/18 10:26 05/21/18 15:17 05/21/18 15:30 Temperature 98.0 F 97.6 F Pulse Rate 52 L 108 H 80 Respiratory Rate 20 16 16 Blood Pressure 173/86 H 176/78 H 179/82 H Pulse Oximetry 96 97 97 05/21/18 15:45 05/21/18 16:00 05/21/18 16:15 Temperature Pulse Rate 80 78 78 Respiratory Rate 16 16 16 Blood Pressure 173/84 H 162/80 H 176/82 H Pulse Oximetry 95 95 95 Intake & Output 05/20/18 05/21/18 05/21/18 18:59 06:59 18:59 Weight 76.204 kg Other: Weight On Admission 76.204 kg Narrative: GENERAL: Well-developed elderly white male patient currently in mild distress. Awake and oriented 3. SKIN: Focused skin assessment warm/dry. HEAD: Atraumatic. Normocephalic. EYES: Pupils equal and round. No scleral icterus. No injection or drainage. ENT: No nasal bleeding or discharge. Mucous membranes pink and moist. NECK: Trachea midline. No JVD. Supple. CARDIOVASCULAR: Regular rate and rhythm. No murmur appreciated. RESPIRATORY: No accessory muscle use. clear to auscultation bilateral, chest tube on right chest. GASTROINTESTINAL: Abdomen soft, diffusely tender, moderately distended. MUSCULOSKELETAL: No obvious deformities. No clubbing. No cyanosis. No edema. NEUROLOGICAL: Awake and alert. No obvious cranial nerve deficits. Motor grossly within normal limits. Normal speech. PSYCHIATRIC: Appropriate mood and affect; insight and judgment normal. Assessment and Plan - Plan 1. Suspected Hepatocellular Carcinoma sent by extension service specialist in charge Doctor Mark Anthony Live for Interventional Radiology management he has high risk for Biopsy, had today chemoembolization of tumors recently today brought in for Liver biopsy and Cryoablation of the Liver tumor, due to technical difficulty to see the mass was necessary to perform transpleural approach and left right chest tube to correct Hydropneumothorax. 2. Cirrhosis stable/Alcoholic Hepatitis 3. . Hypertension controlled continue Home medicines 4. PAD by history DVT prophylaxis SCDs. Code Status: Full code. Discussed Condition With: Patient and nurse Miss Ortiz. Discharge Planning: As per attending physician.
[2018-05-21 17:33] LABS: Hematocrit 38.2 % (39.0-51.0); Hemoglobin 13.2 gm/dL (13.0-17.0)
[2018-05-21] MEDS: Sod Chloride 0.9% Inj 1,000 ML IV.SIG SCH (21:12)
[2018-05-22 01:18] LABS: Hemoglobin 15.2 gm/dL (13.0-17.0)
--- NOTE | 2018-05-22 08:51 | XR ---
EXAM DATE: 05/22/2018 8:44 AM EDT AGE/SEX: 72 years / Male INDICATIONS: Short of breath, evaluate hydropneumothorax CLINICAL DATA: This is the patient's subsequent encounter. Patient reports that signs and symptoms h ave been present for 2 days and indicates a pain score of 9/10. MEDICAL/SURGICAL HISTORY: Hypertension. Cirrhosis. hepatocellular carcinoma Chest tube, right . COMPARISON: [facility] [place] RF ABLATION VISCERAL, 05/21/2018. . FINDINGS: Pigtail chest tube in the inferior right hemithorax. Minimal airspace disease in the right lung base. No significant residual hydropneumothorax. Cardiomediastinal contours are within normal limits. Osse ous structures are intact. CONCLUSION: 1. Inferior right hemithorax chest tube without significant residual hydropneumothorax. 2. Minimal right lung base atelectasis. Electronically signed by: Christian Buchanan MD 05/22/2018 8:50 AM EDT
[2018-05-22] MEDS: Lisinopril 10 MG Tablet PO SCH (09:53)
[2018-05-22] MEDS: Finasteride 5 MG Tablet PO SCH (09:53)
--- NOTE | 2018-05-22 10:22 | P.PN ---
Subjective Interval history: This is a pleasant 72 y/o male with previous Alcohol abuse, Cirrhosis, who was seen initially in Emergency room due to abdominal distention, for 3-4 weeks history of worsening increase in abdominal girth, leg swelling, and abdominal discomfort. associated Nausea but no vomit, denied diarrhea, or fever , the workup in ER gave Cirrhosis he still drinking alcohol, CAT scan shows ascites with cirrhosis. No other acute intra-abdominal processes were identified. He apparently had been seen at [facility] for similar symptoms last week as well. Chest x-ray otherwise was unremarkable for any significant pulmonary edema. At this point, my plan would be to give him diuretics for his ascites. He will need to follow-up closely with his primary care physician and stop drinking alcohol. he has multiple masses on his liver and with suspected hepatocellular Carcinoma , and high risk for Biopsy was recommended to be followed and receive management by Interventional radiology at this time status post chemoembolization, he will remain in house for 23 hour observation by his Primary interventional network operations specialist and discharge, will continue Radiation therapy. Today brought for Liver Biopsy and Cryoablation of the liver mass due to technical complications was necessary to perform Transpleural approach and left chest tube to the right chest. 05/22: Status post Right chest tube removal by Interventional Radiology having at this time CXR for follow up not yet clear for discharge by his Primary Interventional specialist. no nausea , vomit or diarrhea. Physical Exam Vital signs: Vital Signs 05/21/18 10:26 05/21/18 15:17 05/21/18 15:30 Temperature 98.0 F 97.6 F Pulse Rate 52 L 108 H 80 Respiratory Rate 20 16 16 Blood Pressure 173/86 H 176/78 H 179/82 H Pulse Oximetry 96 97 97 05/21/18 15:45 05/21/18 16:00 05/21/18 16:15 Temperature Pulse Rate 80 78 78 Respiratory Rate 16 16 16 Blood Pressure 173/84 H 162/80 H 176/82 H Pulse Oximetry 95 95 95 05/21/18 16:30 05/21/18 17:00 05/21/18 18:30 Temperature 97.3 F L Pulse Rate 78 76 55 L Respiratory Rate 16 16 16 Blood Pressure 169/80 H 164/77 H 149/72 H Pulse Oximetry 97 98 97 05/21/18 20:00 05/22/18 01:31 05/22/18 04:00 Temperature 97.2 F L 97.2 F L 97.3 F L Pulse Rate 57 L 61 62 Respiratory Rate 18 18 20 Blood Pressure 149/70 H 150/67 H 163/74 H Pulse Oximetry 96 97 95 05/22/18 07:00 05/22/18 08:00 Temperature 98.0 F Pulse Rate 69 Respiratory Rate 20 17 Blood Pressure 169/77 H Pulse Oximetry 97 Intake & Output 05/21/18 05/22/18 05/22/18 18:59 06:59 18:59 Intake Total 360 / 360 Output Total 805 / 805 Balance -445 / -445 Weight 76.204 kg 75.8 kg Intake: Oral 360 / 360 Output: Urine 125 / 125 Urine Amount (Catheter) 580 / 580 Straight 580 / 580 Chest Tube Drainage 100 / 100 Right Upper Mid-Axillary Chest 100 / 100 Other: Weight On Admission 76.204 kg Narrative: GENERAL: Well-developed elderly white male patient currently in mild distress. Awake and oriented 3. SKIN: Focused skin assessment warm/dry. HEAD: Atraumatic. Normocephalic. EYES: Pupils equal and round. No scleral icterus. No injection or drainage. ENT: No nasal bleeding or discharge. Mucous membranes pink and moist. NECK: Trachea midline. No JVD. Supple. CARDIOVASCULAR: systolic heart Murmur, PVCs heard. RESPIRATORY: No accessory muscle use. clear to auscultation bilateral. GASTROINTESTINAL: Abdomen soft, diffusely tender, moderately distended. MUSCULOSKELETAL: No obvious deformities. No clubbing. No cyanosis. No edema. NEUROLOGICAL: Awake and alert. No obvious cranial nerve deficits. Motor grossly within normal limits. Normal speech. PSYCHIATRIC: Appropriate mood and affect; insight and judgment normal. - Urinary Catheter Management Straight Cath placed during this visit: yes, but has since been removed by the nurse Reason for continuing: Decision to DC catheter Insertion date: 05/22/18 Insertion time: 04:00 Removal date: 05/22/18 Removal time: 04:20 Results - Labs CBC & Chem 7: 05/22/18 00:57 05/21/18 10:20 Laboratory Results - last 24 hr 05/21/18 05/21/18 05/21/18 10:20 10:20 10:20 WBC 6.3 RBC 4.49 L Hgb 16.0 Hct 47.5 MCV 105.9 H MCH 35.7 H MCHC 33.7 RDW 15.2 Plt Count 62 L MPV 9.5 Prelim Diff (Auto) Slide review pending Neut % (Auto) 83.7 H Lymph % (Auto) 8.0 L [place] % (Auto) 8.0 Eos % (Auto) 0.0 Baso % (Auto) 0.3 Neut # (Auto) 5.3 Lymph # (Auto) 0.5 L [place] # (Auto) 0.5 Eos # (Auto) 0.0 Baso # (Auto) 0.0 WBC Differential . Diff Scan Auto diff confirmed Differential Comment . PT 13.5 H INR 1.3 APTT 24.3 Sodium 128 L Potassium 5.1 Chloride 94 L Carbon Dioxide 24.8 Anion Gap 9 BUN 40 H Creatinine 1.18 Estimated GFR 60 L Random Glucose 83 Calcium 9.2 Prot Corrected Calcium Total Bilirubin 2.4 H AST 78 H ALT 256 H Alkaline Phosphatase 178 H Total Protein 7.9 Albumin 2.9 L Blood Type Bld Prod Order Comment 05/21/18 05/21/18 05/21/18 10:20 12:10 17:15 WBC RBC Hgb 13.2 D Hct 38.2 L MCV MCH MCHC RDW Plt Count MPV Prelim Diff (Auto) Neut % (Auto) Lymph % (Auto) [place] % (Auto) Eos % (Auto) Baso % (Auto) Neut # (Auto) Lymph # (Auto) [place] # (Auto) Eos # (Auto) Baso # (Auto) WBC Differential Diff Scan Differential Comment PT INR APTT Sodium Cancelled Potassium Cancelled Chloride Cancelled Carbon Dioxide Cancelled Anion Gap Cancelled BUN Cancelled Creatinine Cancelled Estimated GFR Cancelled Random Glucose Cancelled Calcium Cancelled Prot Corrected Calcium Cancelled Total Bilirubin Cancelled AST Cancelled ALT Cancelled Alkaline Phosphatase Cancelled Total Protein Cancelled Albumin Cancelled Blood Type A Negative Bld Prod Order Comment 05/22/18 00:57 WBC RBC Hgb 15.2 D Hct 45.0 MCV MCH MCHC RDW Plt Count MPV Prelim Diff (Auto) Neut % (Auto) Lymph % (Auto) [place] % (Auto) Eos % (Auto) Baso % (Auto) Neut # (Auto) Lymph # (Auto) [place] # (Auto) Eos # (Auto) Baso # (Auto) WBC Differential Diff Scan Differential Comment PT INR APTT Sodium Potassium Chloride Carbon Dioxide Anion Gap BUN Creatinine Estimated GFR Random Glucose Calcium Prot Corrected Calcium Total Bilirubin AST ALT Alkaline Phosphatase Total Protein Albumin Blood Type Bld Prod Order Comment - Imaging Impressions CT Guided Tissue Ablation 05/21/18 00:00 CONCLUSION: 1. Challenging but technically successful CT-guided microwave ablation requiring iatrogenic hydropneumothorax to establish window to the segment 8 mass. 2. The segment 7 mass did not retain radiodense beads from arterial embolization. Uncertain if this reflects a true lesion and therefore this lesion was not ablated. PLAN: Patient will be admitted for overnight observation and symptom management. Will require follow-up liver mass MRI examination in approximately 6 -8 weeks. Will consider additional treatments for the segment 7 mass pending MRI findings. Chest X-Ray 05/22/18 08:14 CONCLUSION: 1. Inferior right hemithorax chest tube without significant residual hydropneumothorax. 2. Minimal right lung base atelectasis. Assessment and Plan - Plan 1. Suspected Hepatocellular Carcinoma sent by business taxes specialist Doctor Mark Anthony Live for Interventional Radiology management he has high risk for Biopsy, had today chemoembolization of tumors recently today brought in for Liver biopsy and Cryoablation of the Liver tumor, due to technical difficulty to see the mass was necessary to perform transpleural approach and left right chest tube to correct Hydropneumothorax. Chest tube removed this morning, improving on new CXR. Following Interventional Radiology recommendations for discharge. 2. Cirrhosis stable/Alcoholic Hepatitis 3. . Hypertension controlled continue Home medicines 4. PAD by history DVT prophylaxis SCDs. Code Status: Full Code. Discussed Condition With: Patient and nurse and MDR. Discharge Planning: Once cleared by Interventional Radiology
[2018-05-22] MEDS: Sod Chloride 0.9% Inj 1,000 ML IV.SIG SCH (12:09)
--- NOTE | 2018-05-22 15:05 | XR ---
EXAM DATE: 05/22/2018 2:09 PM EDT AGE/SEX: 72 years / Male INDICATIONS: Evaluate for pneumothorax, post chest tube removal. CLINICAL DATA: This is the patient's subsequent encounter. Patient reports that signs and symptoms h ave been present for 2 days and indicates a pain score of 0/10. MEDICAL/SURGICAL HISTORY: Hypertension. Cirrhosis. Hepatocellular carcinoma None. Chest tube . [place] [facility] [place]. . FINDINGS: Lucency is seen in right apex suspicious for small right apical pneumothorax. Slight bibasilar atelec tasis is seen. CONCLUSION: Small right apical pneumothorax is suspected. Electronically signed by: Gallo Goldstein MD 05/22/2018 3:04 PM EDT
[2018-05-23 07:26] LABS: Hemoglobin 14.7 gm/dL (13.0-17.0); Mean Corpuscular HGB Conc 34.2 % (32.0-36.0); Mean Corpuscular Hemoglobin 36.2 pg (27.0-34.0); Mean Corpuscular Volume 105.8 fL (80.0-100.0); Mean Platelet Volume 9.1 fL (7.0-11.0); Platelet Count 58 th/mm3 (150-450); Red Blood Count 4.06 mil/mm3 (4.50-5.90); Red Cell Distribution Width 14.9 % (11.6-17.2)
[2018-05-23 07:57] LABS: Calcium 8.4 mg/dL (8.5-10.1); Carbon Dioxide 23.3 meq/L (21.0-32.0); Potassium 6.1 meq/L (3.5-5.1)
[2018-05-23] MEDS: Finasteride 5 MG Tablet PO SCH (08:59)
[2018-05-23] MEDS: Lisinopril 10 MG Tablet PO SCH (08:59)
--- NOTE | 2018-05-23 09:00 | P.PN ---
Subjective Interval history: This is a pleasant 72 y/o male with previous Alcohol abuse, Cirrhosis, who was seen initially in Emergency room due to abdominal distention, for 3-4 weeks history of worsening increase in abdominal girth, leg swelling, and abdominal discomfort. associated Nausea but no vomit, denied diarrhea, or fever , the workup in ER gave Cirrhosis he still drinking alcohol, CAT scan shows ascites with cirrhosis. No other acute intra-abdominal processes were identified. He apparently had been seen at [facility] for similar symptoms last week as well. Chest x-ray otherwise was unremarkable for any significant pulmonary edema. At this point, my plan would be to give him diuretics for his ascites. He will need to follow-up closely with his primary care physician and stop drinking alcohol. he has multiple masses on his liver and with suspected hepatocellular Carcinoma , and high risk for Biopsy was recommended to be followed and receive management by Interventional radiology at this time status post chemoembolization, he will remain in house for 23 hour observation by his Primary interventional medicaid collection specialist and discharge, will continue Radiation therapy. Today brought for Liver Biopsy and Cryoablation of the liver mass due to technical complications was necessary to perform Transpleural approach and left chest tube to the right chest. 05/22: Status post Right chest tube removal by Interventional Radiology having at this time CXR for follow up not yet clear for discharge by his Primary Interventional specialist. 05/23: Seen in his bedroom, no nausea, vomit or diarrhea, already clear for discharge by ID specialist will go home now Physical Exam Vital signs: Vital Signs 05/22/18 10:38 05/22/18 12:00 05/22/18 16:43 Temperature 97.5 F L 97.4 F L Pulse Rate 70 83 Respiratory Rate 18 16 17 Blood Pressure 137/65 140/69 Pulse Oximetry 91 L 94 L 05/22/18 19:28 05/22/18 20:00 05/23/18 00:00 Temperature 97.4 F L 97.3 F L Pulse Rate 74 67 Respiratory Rate 20 22 22 Blood Pressure 178/80 H 170/79 H Pulse Oximetry 96 93 L 05/23/18 04:00 05/23/18 08:00 Temperature 97.7 F 97.6 F Pulse Rate 71 79 Respiratory Rate 22 17 Blood Pressure 154/68 H 160/74 H Pulse Oximetry 93 L 93 L Intake & Output 05/22/18 05/23/1818 18:59 06:59 18:59 Intake Total 500 / 500 Output Total 600 / 600 Balance -600 / -600 500 / 500 Weight 75.7 kg Intake: IV 500 / 500 NS Inj 1,000 ML @ 30 mls/hr IV. 500 / 500 SIG .Q24H [facility] Rx#:[id number] Output: Urine 600 / 600 Other: # Voids 3 # Bowel Movements 1 Narrative: GENERAL: Well-developed elderly white male patient currently in mild distress. Awake and oriented 3. SKIN: Focused skin assessment warm/dry. HEAD: Atraumatic. Normocephalic. EYES: Pupils equal and round. No scleral icterus. No injection or drainage. ENT: No nasal bleeding or discharge. Mucous membranes pink and moist. NECK: Trachea midline. No JVD. Supple. CARDIOVASCULAR: systolic heart Murmur, PVCs heard. RESPIRATORY: No accessory muscle use. clear to auscultation bilateral. GASTROINTESTINAL: Abdomen soft, diffusely tender, moderately distended. MUSCULOSKELETAL: No obvious deformities. No clubbing. No cyanosis. No edema. NEUROLOGICAL: Awake and alert. No obvious cranial nerve deficits. Motor grossly within normal limits. Normal speech. PSYCHIATRIC: Appropriate mood and affect; insight and judgment normal. - Urinary Catheter Management Straight Cath placed during this visit: yes, but has since been removed by the nurse Reason for continuing: Decision to DC catheter Insertion date: 05/22/18 Insertion time: 04:00 Removal date: 05/22/18 Removal time: 04:20 Results - Labs CBC & Chem 7: 05/23/18 06:33 05/23/18 06:33 Laboratory Results - last 24 hr 05/21/18 05/23/18 05/23/18 12:10 06:33 06:33 WBC 6.0 RBC 4.06 L Hgb 14.7 Hct 43.0 MCV 105.8 H MCH 36.2 H MCHC 34.2 RDW 14.9 Plt Count 58 L MPV 9.1 Sodium 128 L Potassium 6.1 H D Chloride 97 L Carbon Dioxide 23.3 Anion Gap 8 BUN 51 H Creatinine 0.95 Estimated GFR 77 L Random Glucose 95 Calcium 8.4 L D Blood Type A Negative Bld Prod Order Comment - Imaging Impressions Chest X-Ray 05/22/18 00:00 CONCLUSION: Small right apical pneumothorax is suspected. Assessment and Plan - Plan 1. Suspected Hepatocellular Carcinoma sent by icu specialist Doctor Mark Anthony Live for Interventional Radiology management he has high risk for Biopsy, had today chemoembolization of tumors recently today brought in for Liver biopsy and Cryoablation of the Liver tumor, due to technical difficulty to see the mass was necessary to perform transpleural approach and left right chest tube to correct Hydropneumothorax. Chest tube removed this morning, improving on new CXR. okay from IR specialist for discharge. 2. Cirrhosis stable/Alcoholic Hepatitis 3. . Hypertension controlled continue Home medicines 4. PAD by history 5. Hyperkalemia will give him Kayexalate 30 grams and follow potassium level. will discharge after his Potassium is in normal range. DVT prophylaxis SCDs. Code Status: Full Code Discussed Condition With: patient and nurse. Discharge Planning: Once cleared by Interventional Radiology
[2018-05-23] MEDS ORDERED: Sodium Polystyrene Sulfonate/Sorbitol Liq 15 GM/60 ML UDC PO ONE (11:00)
[2018-05-23] MEDS: Sod Chloride 0.9% Inj 1,000 ML IV.SIG SCH (14:41)
[2018-05-23 16:08] LABS: Calcium 8.9 mg/dL (8.5-10.1); Carbon Dioxide 24.4 meq/L (21.0-32.0); Potassium 5.7 meq/L (3.5-5.1)
[2018-05-23] MEDS: amLODIPine 5 MG Tablet PO SCH (18:08)
[2018-05-24] MEDS: amLODIPine 5 MG Tablet PO SCH (08:34)
[2018-05-24] MEDS: Lisinopril 10 MG Tablet PO SCH (08:34)
[2018-05-24] MEDS: Finasteride 5 MG Tablet PO SCH (08:34)
--- NOTE | 2018-05-24 09:54 | P.PN ---
Subjective Interval history: This is a pleasant 72 y/o male with previous Alcohol abuse, Cirrhosis, who was seen initially in Emergency room due to abdominal distention, for 3-4 weeks history of worsening increase in abdominal girth, leg swelling, and abdominal discomfort. associated Nausea but no vomit, denied diarrhea, or fever , the workup in ER gave Cirrhosis he still drinking alcohol, CAT scan shows ascites with cirrhosis. No other acute intra-abdominal processes were identified. He apparently had been seen at [facility] for similar symptoms last week as well. Chest x-ray otherwise was unremarkable for any significant pulmonary edema. At this point, my plan would be to give him diuretics for his ascites. He will need to follow-up closely with his primary care physician and stop drinking alcohol. he has multiple masses on his liver and with suspected hepatocellular Carcinoma , and high risk for Biopsy was recommended to be followed and receive management by Interventional radiology at this time status post chemoembolization, he will remain in house for 23 hour observation by his Primary interventional campaign management specialist and discharge, will continue Radiation therapy. Today brought for Liver Biopsy and Cryoablation of the liver mass due to technical complications was necessary to perform Transpleural approach and left chest tube to the right chest. 05/22: Status post Right chest tube removal by Interventional Radiology having at this time CXR for follow up not yet clear for discharge by his Primary Interventional specialist. 05/23: Seen in his bedroom, already clear for discharge by ID specialist. 05/24: Was not possible to discharge yesterday due to Hyperkalemia, given Kayexalate and removed Spironolactone today his Potassium improved to 5.7 but will need to follow by his Primary sales recruitment specialist due to probable Hypokalemia will need Potassium replacement, I think this because his Potassium was below 4 in the past but he continue On Lisinopril and added Amlodipine for blood pressure that was also uncontrolled probable pain was a factor. at this time no nausea, vomit or diarrhea. Physical Exam Vital signs: Vital Signs 05/23/18 12:00 05/23/18 15:11 05/23/18 20:00 Temperature 97.3 F L 97.6 F 97.5 F L Pulse Rate 76 86 77 Respiratory Rate 18 18 18 Blood Pressure 192/86 H 168/82 H 148/67 H Pulse Oximetry 94 L 95 95 05/24/18 00:00 05/24/18 08:00 Temperature 97.7 F 98.5 F Pulse Rate 81 110 H Respiratory Rate 18 18 Blood Pressure 179/84 H 125/74 Pulse Oximetry 94 L 94 L Intake & Output 05/23/18 05/24/18 05/24/18 18:59 06:59 18:59 Intake Total 500 / 500 500 / 500 Output Total 800 / 800 600 / 600 Balance -300 / -300 -100 / -100 Weight 74.6 kg Intake: IV 500 / 500 500 / 500 NS Inj 1,000 ML @ 30 mls/hr IV. 500 / 500 500 / 500 SIG .Q24H [facility] Rx#:[id number] Output: Urine 800 / 800 600 / 600 Other: Date of Last Bowel Movement 05/23/18 # Bowel Movements 1 Narrative: GENERAL: Well-developed elderly white male patient currently in mild distress. Awake and oriented 3. SKIN: Focused skin assessment warm/dry. HEAD: Atraumatic. Normocephalic. EYES: Pupils equal and round. No scleral icterus. No injection or drainage. ENT: No nasal bleeding or discharge. Mucous membranes pink and moist. NECK: Trachea midline. No JVD. Supple. CARDIOVASCULAR: systolic heart Murmur, PVCs heard. RESPIRATORY: No accessory muscle use. clear to auscultation bilateral. GASTROINTESTINAL: Abdomen soft, diffusely tender, moderately distended. MUSCULOSKELETAL: No obvious deformities. No clubbing. No cyanosis. No edema. NEUROLOGICAL: Awake and alert. No obvious cranial nerve deficits. Motor grossly within normal limits. Normal speech. PSYCHIATRIC: Appropriate mood and affect; insight and judgment normal. - Urinary Catheter Management Straight Cath placed during this visit: yes, but has since been removed by the nurse Reason for continuing: Decision to DC catheter Insertion date: 05/22/18 Insertion time: 04:00 Removal date: 05/22/18 Removal time: 04:20 Results - Labs CBC & Chem 7: 05/23/18 06:33 05/23/18 14:40 Laboratory Results - last 24 hr 05/23/18 14:40 Sodium 130 L Potassium 5.7 H Chloride 96 L Carbon Dioxide 24.4 Anion Gap 10 BUN 53 H Creatinine 1.20 Estimated GFR 59 L Random Glucose 99 Calcium 8.9 Assessment and Plan - Plan 1. Suspected Hepatocellular Carcinoma sent by sales recruitment specialist Doctor Mark Anthony Live for Interventional Radiology management he has high risk for Biopsy, had today chemoembolization of tumors recently today brought in for Liver biopsy and Cryoablation of the Liver tumor, due to technical difficulty to see the mass was necessary to perform transpleural approach and left right chest tube to correct Hydropneumothorax. Chest tube removed this morning, improving on new CXR. okay from IR specialist for discharge. 2. Cirrhosis stable/Alcoholic Hepatitis 3. . Hypertension Uncontrolled yesterday made some changes to his Medicines, continue on AYUSH inhibitor low dose and added Amlodipine and removed Spironolactone due to Hyperkalemia over 6 will need to follow with his Primary Care Physician and with sales recruitment specialist to adjust this medicines. 4. PAD by history 5. Hyperkalemia better will need to follow now that is off Spironolactone. DVT prophylaxis SCDs. Code Status: Full code Discussed Condition With: Patient and Nurse. Discharge Planning: Discharge home today.
--- NOTE | 2018-05-24 09:59 | P.DS ---
Date of admission: 05/22/18 13:09 Primary care physician: Chanda Petit Attending physician on discharge: Bro Enciso Anticipated date of discharge: 05/24/18 Brief History from admission: This is a pleasant 72 y/o male with previous Alcohol abuse, Cirrhosis, who was seen initially in Emergency room due to abdominal distention, for 3-4 weeks history of worsening increase in abdominal girth, leg swelling, and abdominal discomfort. associated Nausea but no vomit, denied diarrhea, or fever , the workup in ER gave Cirrhosis he still drinking alcohol, CAT scan shows ascites with cirrhosis. No other acute intra-abdominal processes were identified. He apparently had been seen at [facility] for similar symptoms last week as well. Chest x-ray otherwise was unremarkable for any significant pulmonary edema. At this point, my plan would be to give him diuretics for his ascites. He will need to follow-up closely with his primary care physician and stop drinking alcohol. he has multiple masses on his liver and with suspected hepatocellular Carcinoma , and high risk for Biopsy was recommended to be followed and receive management by Interventional radiology at this time status post chemoembolization, he will remain in house for 23 hour observation by his Primary interventional ict security specialist and discharge, will continue Radiation therapy. Today brought for Liver Biopsy and Cryoablation of the liver mass due to technical complications was necessary to perform Transpleural approach and left chest tube to the right chest. DS: Diagnosis - Discharge Diagnosis (1) Arthritis Status: Acute (2) Cataract Status: Acute (3) Cirrhosis Status: Acute (4) H/O rotator cuff surgery Status: Acute (5) HTN (hypertension) Status: Acute (6) PVD (peripheral vascular disease) Status: Acute DS: Summary Hospital Course: This is a pleasant 72 y/o male with previous Alcohol abuse, Cirrhosis, who was seen initially in Emergency room due to abdominal distention, for 3-4 weeks history of worsening increase in abdominal girth, leg swelling, and abdominal discomfort. associated Nausea but no vomit, denied diarrhea, or fever , the workup in ER gave Cirrhosis he still drinking alcohol, CAT scan shows ascites with cirrhosis. No other acute intra-abdominal processes were identified. He apparently had been seen at [facility] for similar symptoms last week as well. Chest x-ray otherwise was unremarkable for any significant pulmonary edema. At this point, my plan would be to give him diuretics for his ascites. He will need to follow-up closely with his primary care physician and stop drinking alcohol. he has multiple masses on his liver and with suspected hepatocellular Carcinoma , and high risk for Biopsy was recommended to be followed and receive management by Interventional radiology at this time status post chemoembolization, he will remain in house for 23 hour observation by his Primary interventional ict security specialist and discharge, will continue Radiation therapy. Today brought for Liver Biopsy and Cryoablation of the liver mass due to technical complications was necessary to perform Transpleural approach and left chest tube to the right chest. 05/22: Status post Right chest tube removal by Interventional Radiology having at this time CXR for follow up not yet clear for discharge by his Primary Interventional specialist. 05/23: Seen in his bedroom, already clear for discharge by ID specialist. 05/24: Was not possible to discharge yesterday due to Hyperkalemia, given Kayexalate and removed Spironolactone today his Potassium improved to 5.7 but will need to follow by his Primary drilling fluids specialist due to probable Hypokalemia will need Potassium replacement, I think this because his Potassium was below 4 in the past but he continue On Lisinopril and added Amlodipine for blood pressure that was also uncontrolled probable pain was a factor. at this time no nausea, vomit or diarrhea. Assessment and Plan - Plan 1. Suspected Hepatocellular Carcinoma sent by drilling fluids specialist Doctor Mark Anthony Live for Interventional Radiology management he has high risk for Biopsy, had today chemoembolization of tumors recently today brought in for Liver biopsy and Cryoablation of the Liver tumor, due to technical difficulty to see the mass was necessary to perform transpleural approach and left right chest tube to correct Hydropneumothorax. Chest tube removed this morning, improving on new CXR. okay from IR specialist for discharge. 2. Cirrhosis stable/Alcoholic Hepatitis 3. . Hypertension Uncontrolled yesterday made some changes to his Medicines, continue on AYUSH inhibitor low dose and added Amlodipine and removed Spironolactone due to Hyperkalemia over 6 will need to follow with his Primary Care Physician and with drilling fluids specialist to adjust this medicines. 4. PAD by history 5. Hyperkalemia better will need to follow now that is off Spironolactone. DVT prophylaxis SCDs. Code Status: Full code Discussed Condition With: Patient and Nurse. Discharge Planning: Discharge home today. - Time Spent with Patient Total time spent providing and/or coordinating discharge services: Less than 30 minutes - Quality: VTE Deep Vein Thrombosis/Pulmonary Embolism Present on Admission: No Exam Vital signs: Vital Signs 05/23/18 12:00 05/23/18 15:11 05/23/18 20:00 Temperature 97.3 F L 97.6 F 97.5 F L Pulse Rate 76 86 77 Respiratory Rate 18 18 18 Blood Pressure 192/86 H 168/82 H 148/67 H Pulse Oximetry 94 L 95 95 05/24/18 00:00 05/24/18 08:00 Temperature 97.7 F 98.5 F Pulse Rate 81 110 H Respiratory Rate 18 18 Blood Pressure 179/84 H 125/74 Pulse Oximetry 94 L 94 L Intake & Output 05/23/18 05/24/18 05/24/18 18:59 06:59 18:59 Intake Total 500 / 500 500 / 500 Output Total 800 / 800 600 / 600 Balance -300 / -300 -100 / -100 Weight 74.6 kg Intake: IV 500 / 500 500 / 500 NS Inj 1,000 ML @ 30 mls/hr IV. 500 / 500 500 / 500 SIG .Q24H [facility] Rx#:[id number] Output: Urine 800 / 800 600 / 600 Other: Date of Last Bowel Movement 05/23/18 # Bowel Movements 1 Narrative: GENERAL: Well-developed elderly white male patient currently in mild distress. Awake and oriented 3. SKIN: Focused skin assessment warm/dry. HEAD: Atraumatic. Normocephalic. EYES: Pupils equal and round. No scleral icterus. No injection or drainage. ENT: No nasal bleeding or discharge. Mucous membranes pink and moist. NECK: Trachea midline. No JVD. Supple. CARDIOVASCULAR: systolic heart Murmur, PVCs heard. RESPIRATORY: No accessory muscle use. clear to auscultation bilateral. GASTROINTESTINAL: Abdomen soft, diffusely tender, moderately distended. MUSCULOSKELETAL: No obvious deformities. No clubbing. No cyanosis. No edema. NEUROLOGICAL: Awake and alert. No obvious cranial nerve deficits. Motor grossly within normal limits. Normal speech. PSYCHIATRIC: Appropriate mood and affect; insight and judgment normal. Results Procedures completed during hospitalization: Liver biopsy and Cryoablation of the Liver tumor, due to technical difficulty to see the mass was necessary to perform transpleural approach and left right chest tube to correct Hydropneumothorax. Labs on day of discharge: Labs from last 24 hours 05/23/18 14:40 Sodium 130 L Potassium 5.7 H Chloride 96 L Carbon Dioxide 24.4 Anion Gap 10 BUN 53 H Creatinine 1.20 Estimated GFR 59 L Random Glucose 99 Calcium 8.9 - Impressions ITS Impressions CT Guided Tissue Ablation 05/21/18 00:00 CONCLUSION: 1. Challenging but technically successful CT-guided microwave ablation requiring iatrogenic hydropneumothorax to establish window to the segment 8 mass. 2. The segment 7 mass did not retain radiodense beads from arterial embolization. Uncertain if this reflects a true lesion and therefore this lesion was not ablated. PLAN: Patient will be admitted for overnight observation and symptom management. Will require follow-up liver mass MRI examination in approximately 6 -8 weeks. Will consider additional treatments for the segment 7 mass pending MRI findings. Chest X-Ray 05/22/18 08:14 CONCLUSION: 1. Inferior right hemithorax chest tube without significant residual hydropneumothorax. 2. Minimal right lung base atelectasis. Discharge Plan - Discharge Disposition Patient Disposition: 01 Discharge Home - Discharge Condition Condition: Good - Discharge Order Discharge Orders: Discharge Order (Routine); Ordered 05/24/18 Ordered By: Bro Enciso Radiologist Clear for Discharge (Routine); Ordered 05/22/18 Ordered By: Christian Buchanan - Discharge Details Anticipated Discharge Date: 05/23/18 Discharge Comment: Follow up as scheduled with Interventional Radiology and drilling fluids specialist. - Physicians Team Attending Provider: Bro Enciso Other Providers: Bro Enciso MD - Rxs /Orders / Referrals /Forms Prescriptions: New amlodipine [Norvasc] 5 mg Tablet 5 mg PO DAILY Qty: 30 RF: 0 Continue dexamethasone 4 mg Tablet 4 mg PO TID finasteride 5 mg Tablet 5 mg PO DAILY lactulose 10 gram/15 mL Solution 1 g PO DAILY lisinopril 10 mg Tablet 10 mg PO DAILY oxycodone 5 mg Tablet 5 mg PO Q4H PRN (Reason: Pain) Qty: 18 RF: 0 prochlorperazine 10 mg PO TID tramadol 50 mg Tablet 50 mg PO Q6H Discontinued spironolactone 100 mg Tablet 100 mg PO DAILY Referrals: Chanda Petit [Other] - See Instructions
--- NOTE | 2018-05-24 13:59 | XR ---
EXAM DATE: 05/24/2018 1:56 PM EDT AGE/SEX: 72 years / Male INDICATIONS: Short of breath CLINICAL DATA: This is the patient's subsequent encounter. Patient reports that signs and symptoms h ave been present for 4 - 6 days and indicates a pain score of Nonresponsive. MEDICAL/SURGICAL HISTORY: . chronic airway obstruction, Hypertension. Cirrhosis. Hepatocellular carcinoma None. COMPARISON: [facility], CHEST 1V SINGLE AP, 05/22/2018. . FINDINGS: Single AP view of the chest. Lungs are clear. Cardiomediastinal silhouette within normal limits. No e vidence of pleural effusion or pneumothorax. CONCLUSION: No acute cardiopulmonary disease identified. Electronically signed by: Julio Katz MD 05/24/2018 1:58 PM EDT
[2018-05-24] MEDS: Sod Chloride 0.9% Inj 1,000 ML IV.SIG SCH (14:32)
[2018-05-24] MEDS ORDERED: Diatrizoate Meglum/Diatrizoate Sod Liq 9 ML UDC PO ONE (15:30)
--- NOTE | 2018-05-24 15:33 | MB ---
cc: Santos Mcdaniel MD DATE: 05/24/2018 ATTENDING PHYSICIAN: Dr. Enciso. REASON FOR CONSULTATION: Oncology consulted for opinion on patient with hepatocellular carcinoma. HISTORY OF PRESENT ILLNESS: The patient is a 72-year-old male with history of alcohol-induced cirrhosis and hepatocellular carcinoma, admitted after he developed hydropneumothorax for microwave ablation of the hepatocellular carcinoma. The patient is lethargic and mildly confused. He is not able to provide a detailed history. Apparently, he was diagnosed with hepatocellular carcinoma and had transarterial chemoembolization done by Interventional Radiology on 05/12/2018. He was brought in on 05/21/2018 for radiofrequency ablation. The procedure was technically difficult, and the patient required iatrogenic hydropneumothorax to reach the liver mass. A chest tube was placed, and the patient was admitted. The chest tube was removed. Subsequently, he was supposed to be discharged today. However this morning, the patient reportedly had a large bowel movement. He was also noted to have hyperkalemia. He is more lethargic. However, there is no report of fever. The patient denies any chest pain. He denies any shortness of breath. He denies any nausea or vomiting. He has some tenderness in the right upper quadrant. He does deny any change in urinary habits. PAST MEDICAL HISTORY: 1. Hepatocellular carcinoma. 2. Alcohol-induced cirrhosis. 3. Cataracts. 4. Peripheral vascular disease. 5. Arthritis. 6. Hypertension. PAST SURGICAL HISTORY: Left rotator cuff surgery. FAMILY HISTORY: Positive for coronary artery disease. One brother had prostate cancer. SOCIAL HISTORY: Quit alcohol in August. He denies tobacco use. ALLERGIES: SULFA, PENICILLIN, ASPIRIN. MEDICATIONS: Norvasc, Decadron, Proscar, lactulose, Levaquin, lisinopril. REVIEW OF SYSTEMS: CONSTITUTIONAL: The patient has generalized weakness and fatigue. He denies any weight loss. EYES: Negative. ENT: Negative. CARDIOVASCULAR: No chest pressure or palpitations. RESPIRATORY: As above. GI: As above. : Negative. MUSCULOSKELETAL: Negative. HEMATOLOGIC: Negative. ENDOCRINE: Negative. PSYCHIATRIC: As above. NEUROLOGIC: As above. PHYSICAL EXAMINATION: VITAL SIGNS: Temperature 98.5, blood pressure 125/74, O2 saturation 94% on 2 L nasal cannula. GENERAL: He is lethargic. He is not oriented to place. HEENT: Atraumatic, normocephalic. Pupils are equal, round, reactive to light. Oropharynx: Dry mucosa. NECK: No thyromegaly. LYMPHATIC: No palpable cervical, clavicular, axillary nodes. HEART: Regular S1, S2. No murmur. LUNGS: Clear to auscultation anteriorly. ABDOMEN: Soft. There is soreness and tenderness in the right upper quadrant. No rebound, no rigidity. Positive bowel sounds. EXTREMITIES: No cyanosis or clubbing. Trace ankle edema. SKIN: No rash. No petechia. Mildly jaundice. NEUROLOGIC: No focal deficit. LABORATORY DATA: WBC 6, hemoglobin 14.7, platelet count 58. Chemistry: Creatinine 1.2. ASSESSMENT: 1. Hepatocellular carcinoma. He has a history of alcohol-induced cirrhosis. He had a transarterial chemoembolization on 05/12/2018. He had radiofrequency ablation to a lesion in segment 8 on 05/21/2018. He has some tenderness in the right upper quadrant. He has not had liver function tests since 05/21/2018. Repeat test is pending at this time. 2. Mental status change. He was supposed to be discharged this morning. However reportedly, he had a large bowel movement and diarrhea. He became lethargic and mildly confused. This could be hepatic encephalopathy. We will check ammonia level. The patient has been on lactulose. We will also need to rule out infection. The patient has tenderness in the right upper quadrant. We will get a CT of the abdomen and head for further evaluation. We will also need to check a urinalysis. 3. Peripheral vascular disease. 4. Arthritis. 5. Hypertension. RECOMMENDATIONS: 1. Repeat liver function tests and ammonia level. 2. Check urinalysis. 3. Get CT abdomen and head. 4. Discussed case with Dr. Enciso. Thank you, Dr. Enciso, for asking me to see this patient. MD ANABEL Naqvi/portia , 02:14 PM , 02:28 PM [facility]
[2018-05-24 17:43] LABS: Bacteria,Urine Many /hpf; Bilirubin,Urine Negative (Negative); Clarity,Urine Cloudy (Clear); Color,Urine Amber (Yellw/Straw); Glucose,Urine (UA) Negative (Negative); Leukocyte Esterase,Urine Trace (Negative); Mucus,Urine Many /lpf (Occasional); Nitrite,Urine Negative (Negative); Specific Gravity,Urine 1.019 (1.002-1.035); Squamous Epithelial Cell,Urine 3 /hpf (0-5); Urobilinogen,Urine 4 or Greater mg/dL (Less than 2)
--- NOTE | 2018-05-24 18:32 | CT ---
EXAM DATE: 05/24/2018 6:22 PM EDT AGE/SEX: 72 years / Male INDICATIONS: Stroke alert, dysphasia. CLINICAL DATA: This is the patient's initial encounter. Patient reports that signs and symptoms have been present for 1 day and indicates a pain score of Nonresponsive. MEDICAL/SURGICAL HISTORY: Non-responsive. Non-responsive. RADIATION DOSE: 10.38 CTDI (mGy) ; Combined studies COMPARISON: [facility] [place], CT HEAD W/O CONTRAST, 05/24/2018. . TECHNIQUE: Volumetric scanning was performed using a multi-row detector CT scanner during bolus infu patricia of 75 ml Visipaque 320 (iodixanol) nonionic water-soluble contrast as a cumulative dose for mul tiple exams. The data was post processed with a variety of visualization algorithms including full volume maximum intensity projection, multi-planar sliding thin slab reformation, curved planar reform ation, and surface rendering techniques. Using automated exposure control and adjustment of the mA a nd/or kV according to patient size, radiation dose was kept as low as reasonably achievable to obtain optimal diagnostic quality images. DICOM format image data is available electronically for review a nd comparison. FINDINGS: There is excellent visualization of the major intracranial arteries out to the second-order branch ve ssels. There is satisfactory opacification and flow in the proximal intracranial vessels. There are no steno -occlusive changes. There are no intraluminal filling defects. There is no evidence of aneurysm or va scular displacement. CONCLUSION: 1. No evidence of proximal intracranial steno-occlusive disease or intraluminal filling defect. 2. No evidence of aneurysm, vascular malformation or vasculopathy. Electronically signed by: Chuy Acevedo MD 05/24/2018 6:30 PM EDT
--- NOTE | 2018-05-24 18:39 | CT ---
EXAM DATE: 05/24/2018 6:18 PM EDT AGE/SEX: 72 years / Male INDICATIONS: Stroke alert, dysphasia. CLINICAL DATA: This is the patient's initial encounter. Patient reports that signs and symptoms have been present for 1 day and indicates a pain score of Nonresponsive. MEDICAL/SURGICAL HISTORY: Non-responsive. Non-responsive. RADIATION DOSE: 10.38 CTDI (mGy) ; Combined studies COMPARISON: No prior exams available for comparison. TECHNIQUE: Volumetric scanning was performed using a multirow detector CT scanner during bolus infus ion of 75 ml Visipaque 320 (iodixanol) nonionic water-soluble contrast as a cumulative dose for mult iple exams. The data was postprocessed with a variety of visualization algorithms including full-vo lume maximum intensity projection, multiplanar sliding thin-slab reformation, curved-planar reformati on, and surface-rendering techniques. Using automated exposure control and adjustment of the mA and/ or kV according to patient size, radiation dose was kept as low as reasonably achievable to obtain op timal diagnostic quality images. DICOM format image data is available electronically for review and comparison. FINDINGS: Aortic Arch: There is a three-vessel origin of the great vessels from the aorta. Heavily calcified p laque is identified at the origin of the left subclavian artery. There is moderate to severe stenosis in the 50-69% range. Right Carotid: Calcified plaque is identified in the proximal internal carotid artery. There is mode rate to severe luminal stenosis in the 50-69% range. Left Carotid: Eccentric plaque is identified in the proximal internal carotid artery. There is mild- to-moderate stenosis in the 30-49% range. Vertebrals: The vertebral arteries have a symmetric diameter. No stenotic lesions are seen. Percent stenosis is calculated using the diameter of the stenotic region over the diameter of the nor mal distal internal carotid artery. CONCLUSION: 1. Significant plaque identified in both carotid bifurcations with moderate to severe stenosis in th e proximal right ICA and mild to moderate stenosis in the proximal left ICA. 2. Moderate to severe stenosis at the origin of the left subclavian artery secondary to calcified pl aque. Degree of narrowing is in the 50-69% range. 3. Patent vertebral arteries. Electronically signed by: Chuy Acevedo MD 05/24/2018 6:38 PM EDT
[2018-05-24 19:16] LABS: Hematocrit 44.1 % (39.0-51.0); Hemoglobin 15.2 gm/dL (13.0-17.0); Mean Corpuscular HGB Conc 34.4 % (32.0-36.0); Mean Corpuscular Hemoglobin 35.8 pg (27.0-34.0); Mean Corpuscular Volume 104.2 fL (80.0-100.0); Mean Platelet Volume 8.4 fL (7.0-11.0); Platelet Count 37 th/mm3 (150-450); Red Blood Count 4.23 mil/mm3 (4.50-5.90); Red Cell Distribution Width 15.2 % (11.6-17.2); White Blood Count 10.2 th/mm3 (4.0-11.0)
[2018-05-24 19:47] LABS: Alanine Aminotransferase 334 U/L (12-78); Albumin 2.3 g/dL (3.4-5.0); Alkaline Phosphatase 155 U/L (45-117); Anion Gap 10 meq/L (5-15); Blood Urea Nitrogen 66 mg/dL (7-18); Calcium 8.1 mg/dL (8.5-10.1); Carbon Dioxide 23.8 meq/L (21.0-32.0); Chloride 93 meq/L (98-107); Glomerular Filtration Rate 63 mL/min (>89); Glucose,Random 93 mg/dL (74-106); Sodium 127 meq/L (136-145); Total Protein 6.1 g/dL (6.4-8.2)
[2018-05-24 19:51] LABS: Aspartate Aminotransferase 206 U/L (15-37); Potassium 6.1 meq/L (3.5-5.1)
[2018-05-24 19:52] LABS: Creatine Kinase 665 U/L (39-308); Lactate Dehydrogenase 654 U/L (87-241)
[2018-05-24 19:53] LABS: Troponin I 0.62 ng/mL (0.02-0.05)
--- NOTE | 2018-05-24 20:06 | CT ---
EXAM DATE: 05/24/2018 6:07 PM EDT AGE/SEX: 72 years / Male INDICATIONS: Stroke alert, dysphasia. CLINICAL DATA: This is the patient's initial encounter. Patient reports that signs and symptoms have been present for 1 day and indicates a pain score of Nonresponsive. MEDICAL/SURGICAL HISTORY: Non-responsive. Non-responsive. Stroke scale 15 RADIATION DOSE: 53.24 CTDI (mGy) COMPARISON: C, CTA HEAD W CONTRAST W 3D, 05/24/2018. . TECHNIQUE: CT of the head without contrast. Using automated exposure control and adjustment of the mA and/or kV according to patient size, radiation dose was kept as low as reasonably achievable to ob tain optimal diagnostic quality images. DICOM format image data is available electronically for revi ew and comparison. FINDINGS: Cerebrum: The ventricles are normal for age. No evidence of midline shift, mass lesion, hemorrhage or acute infarction. Hypodensity is seen throughout the cerebral white matter. No extraaxial fluid c ollections are seen. Posterior Fossa: The cerebellum and brainstem are intact. The 4th ventricle is midline. The cerebe llopontine angle is unremarkable. Extracranial: The visualized portion of the orbits is intact. Skull: The calvaria is intact. No evidence of skull fracture. CONCLUSION: 1. No evidence of acute infarct, hemorrhage, mass or edema. 2. Cerebral white matter hypodensity characteristic of chronic microvascular ischemic disease. Report was called by Curtis to Dr. Enciso at 18:18.] Electronically signed by: Chuy Acevedo MD 05/24/2018 8:04 PM EDT
[2018-05-24 20:19] LABS: CKMB Percent 1.4 % (0.0-4.0); Creatine Kinase MB 9.4 ng/mL (0.5-3.6)
[2018-05-24] MEDS ORDERED: Dextrose 50% in Water 50 ML Vial IV.PUSH ONE (20:21)
[2018-05-24] MEDS ORDERED: Sodium Polystyrene Sulfate 30 GM/120 ML Enema RECTAL ONE (20:32)
--- NOTE | 2018-05-24 20:35 | ECG ---
Date Performed: 05/24/2018 Time Performed: 18:23:09 PTAGE: 72 years EKG: SINUS TACHYCARDIA POSSIBLE INFERIOR MYOCARDIAL INFARCTION , PROBABLY OLD ABNORMAL RHYTHM EC G PREVIOUS TRACING : 10/26/2017 00.38 Since the previous tracing, no significant change noted DOCTOR: Donato Chisholm Interpretating Date/Time 05/24/2018 20:34:53
[2018-05-24] MEDS ORDERED: Calcium Chloride Inj 1 GM in Sodium Chlor 0.9% Inj 100 ML IV.SIG ONE (21:00)
[2018-05-24] MEDS: Sod Chloride 0.9% Inj 1,000 ML IV.CONT SCH (22:42)
[2018-05-24] MEDS ORDERED: Sodium Polystyrene Sulfonate/Sorbitol Liq 15 GM/60 ML UDC RECTAL ONE (22:45)
--- NOTE | 2018-05-24 23:35 | P.PNADD ---
Addendum to Inpatient Note Additional information: Patient was transferred to [facility] at before the night clerk due to sudden onset of dysarthric speech. The case was discussed between Dr. Enciso and Dr. Finley; patient not a candidate for TPA due to thrombocytopenia. Dr. Finley has reviewed the patient's imaging per RN. Neurology plans to see patient in a.m. Orders entered. Discussed with RN.
[2018-05-25] MEDS ORDERED: Labetalol HCl Inj 100 MG/20 ML Vial IV.PUSH ONE ×2 (01:36→07:00)
[2018-05-25 01:54] LABS: Troponin I 1.33 ng/mL (0.02-0.05)
[2018-05-25 02:08] LABS: Creatine Kinase MB 13.3 ng/mL (0.5-3.6)
[2018-05-25] MEDS ORDERED: *Labetalol HCl Inj 100 MG/20 ML Vial PERIprocedural Use ONLY IV.PUSH ONE (06:02)
[2018-05-25 08:29] LABS: Baso # (Auto) 0.1 th/mm3 (0.0-0.2); Baso % (Auto) 0.7 % (0.0-2.0); Hematocrit 42.5 % (39.0-51.0); Hemoglobin 14.5 gm/dL (13.0-17.0); Lymph # (Auto) 0.2 th/mm3 (1.0-4.8); Lymph % (Auto) 2.5 % (9.0-44.0); Mean Corpuscular HGB Conc 34.1 % (32.0-36.0); Mean Corpuscular Hemoglobin 35.6 pg (27.0-34.0); Mean Corpuscular Volume 104.5 fL (80.0-100.0); Mean Platelet Volume 9.5 fL (7.0-11.0); Mono # (Auto) 1.2 th/mm3 (0.0-0.9); Mono % (Auto) 13.7 % (0.0-8.0); Neut # (Auto) 7.2 th/mm3 (1.8-7.7); Neut % (Auto) 83.1 % (16.0-70.0); Platelet Count 36 th/mm3 (150-450); Red Blood Count 4.07 mil/mm3 (4.50-5.90); Red Cell Distribution Width 15.2 % (11.6-17.2); White Blood Count 8.7 th/mm3 (4.0-11.0)
[2018-05-25 09:02] LABS: Alanine Aminotransferase 296 U/L (12-78); Albumin 2.3 g/dL (3.4-5.0); Alkaline Phosphatase 148 U/L (45-117); Anion Gap 12 meq/L (5-15); Aspartate Aminotransferase 175 U/L (15-37); Blood Urea Nitrogen 56 mg/dL (7-18); Calcium 8.5 mg/dL (8.5-10.1); Carbon Dioxide 24.5 meq/L (21.0-32.0); Chloride 95 meq/L (98-107); Chol/HDL Ratio 4.55 Ratio; Cholesterol 268 mg/dL (120-200); Creatine Kinase 618 U/L (39-308); Glomerular Filtration Rate 77 mL/min (>89); Glucose,Random 85 mg/dL (74-106); HDL Cholesterol 58.8 mg/dL (40.0-60.0); LDL Cholesterol,Calculated 192 mg/dL (0-99); Potassium 5.2 meq/L (3.5-5.1); Sodium 131 meq/L (136-145); Total Protein 5.8 g/dL (6.4-8.2); Triglycerides 84 mg/dL (42-150)
[2018-05-25 09:18] LABS: Platelet Morphology Normal (Normal)
[2018-05-25 09:25] LABS: CKMB Percent 2.4 % (0.0-4.0)
[2018-05-25 09:26] LABS: Creatine Kinase MB 14.9 ng/mL (0.5-3.6)
--- NOTE | 2018-05-25 10:37 | MB ---
cc: Lucie Prasad MD DATE: 05/25/2018 REASON FOR CONSULTATION: Stroke alert. HISTORY OF PRESENT ILLNESS: The patient is a 72-year-old man with a history of prior alcohol abuse, cirrhosis. Came to the emergency room initially with abdominal distention. Apparently came in on 05/21/2018, worsening abdominal girth, leg swelling. Apparently, he has masses. He has masses on the liver due to suspected hepatocellular carcinoma. He was brought into the hospital for a cryoablation, liver biopsy. Apparently post right chest tube removal by IR. Apparently on 05/24/2018, he developed an ISC before the slot shift manager. Sudden onset of aphasia. Neurology, DrDon was noted. Due to the patient's low platelets, he was not deemed a candidate for TPA. He is now in room 1328. He had a complete CT which was unremarkable. CTA showed stenosis in both carotids as well as normal vessels in the [place]. This morning, he is still aphasic, not following any commands. PHYSICAL EXAMINATION: VITAL SIGNS: His temperature is 97.9, heart rate 104, respiratory rate 18, blood pressure 155/72. NECK: Supple. I do not appreciate any bruits. HEART: Slightly tachycardic. GENERAL: He is awake. He is alert. HEENT: There is some questionable attenuated right nasolabial fold, mild in any case. NEUROLOGIC: He is globally aphasic, receptive, and expressive. Does not follow any commands. Withdraws to painful stimuli in the upper and lower extremities, possibly to a lesser extent in the right arm. Toes are withdrawing bilaterally. Reflexes are 1+. Sensory, as stated he can withdraw. Again does not follow any commands. LABORATORY DATA: Reviewed. Hemoglobin is 14.5, MCV 104.5, his platelets are 36,000, white count 8.7. Coagulation panel was not done yesterday. Chemistries: Sodium 131, potassium 5.2, BUN 56, creatinine 0.95, GFR 77, AST 175, ALT 296, alkaline phosphatase 148. His last ammonia on 05/24/2018 was 23. CK 618, CK percent 2.4, troponin 1.50, cholesterol 268, LDL 192, HDL 58.8. Triglycerides are 84. Urine shows 60 white cells. Culture is pending. IMAGING: CT brain did not show anything acute. CT of the carotids showed moderate to severe stenosis proximal right ICA, mild to moderate ICA stenosis on the left, moderate to severe left subclavian stenosis 50%-69%. CT of the [place] was negative. IMPRESSION: A 72-year-old male with acute stroke-like symptoms with aphasia, questionable right-sided weakness, at this point difficult to assess. Recommend having him undergo an MRI of the brain. I did order that. He does not need an MRA or a carotid ultrasound, as he had a CTA. This issue would be about his carotid disease, moderate severe on the right and mild to moderate on the left and the subclavian issue as well. I would recommend vascular surgery take a look at him in any case. If other consultants are okay with him being on a baby aspirin, he should be at least on a baby aspirin; however, his thrombocytopenia certainly is concerning. We will continue with permissible hypertension. Have speech therapy see him and do a swallow evaluation. PT, OT evaluation. Permissible hypertension as stated. I will go ahead and order the MRI. I do not see any reason he cannot have it, but will verify with his . Continue current care. He will need also a rehabilitation consult. SCDs for DVT prophylaxis and subcutaneous heparin if no contraindication. MD KELSIE Montgomery/debbie , 10:16 AM , 10:26 AM
[2018-05-25] MEDS: Finasteride 5 MG Tablet PO SCH (13:21)
[2018-05-25] MEDS: Sod Chloride 0.9% Inj 1,000 ML IV.SIG SCH (13:21)
[2018-05-25] MEDS: amLODIPine 5 MG Tablet PO SCH (13:21)
[2018-05-25] MEDS: Lisinopril 10 MG Tablet PO SCH (13:21)
--- NOTE | 2018-05-25 15:06 | P.PNONC ---
Subjective Interval history: Afebrile. Patient with his eyes closed on approach, his is at the bedside she states "I think he is uncomfortable he keeps moving his legs". Patient will not respond to any of my questions. When asked to open his eyes he does attempt this. Objective Vital Signs/Intake & Output: Vital Signs 05/24/18 15:26 05/24/18 18:28 05/24/18 20:00 Temperature 97.2 F L Pulse Rate 77 Respiratory Rate 17 18 Blood Pressure 164/72 H Pulse Oximetry 97 95 05/25/18 00:00 05/25/18 00:10 05/25/18 02:10 Temperature 98.8 F 98.8 F 97.9 F Pulse Rate 125 H 125 H 98 H Respiratory Rate 13 18 18 Blood Pressure 167/84 H 167/84 H 199/109 H Pulse Oximetry 05/25/18 04:00 05/25/18 04:10 05/25/18 06:10 Temperature 97.9 F 97.9 F Pulse Rate 90 90 104 H Respiratory Rate 18 18 18 Blood Pressure 156/71 H 156/71 H 155/72 H Pulse Oximetry 97 05/25/18 08:00 05/25/18 08:10 05/25/18 10:00 Temperature 98.1 F Pulse Rate 106 H 106 H 104 H Respiratory Rate 14 Blood Pressure 166/74 H Pulse Oximetry 99 05/25/18 10:10 05/25/18 12:00 05/25/18 12:10 Temperature 97.9 F Pulse Rate 104 H 84 84 Respiratory Rate 15 15 Blood Pressure 173/84 H 155/68 H Pulse Oximetry 98 96 Intake & Output 05/24/18 05/25/18 05/25/18 18:59 06:59 18:59 Intake Total 110 / 110 Output Total 550 / 550 1425 / 1425 Balance -550 / -550 -1315 / -1315 Weight 73 kg Intake: IV 110 / 110 Calcium Chloride Inj 1 GM In NS 110 / 110 Inj 100 ML @ 110 mls/hr IV.SIG ONCE ONE Rx#:[id number] Output: Urine 550 / 550 Urine Amount (Catheter) 1425 / 1425 Indwelling Urethral Catheter 1425 / 1425 Other: Date of Last Bowel Movement 05/23/18 05/24/18 05/24/18 Result Diagrams: 05/25/18 07:25 05/25/18 04:25 Laboratory Results: Laboratory Results - last 24 hr 05/24/18 05/24/18 05/24/18 15:00 17:42 18:55 WBC 10.2 RBC 4.23 L Hgb 15.2 POC Hgb (Calc) Hct 44.1 POC Hct MCV 104.2 H MCH 35.8 H MCHC 34.4 RDW 15.2 Plt Count 37 L D MPV 8.4 Prelim Diff (Auto) Neut % (Auto) Lymph % (Auto) [place] % (Auto) Eos % (Auto) Baso % (Auto) Neut # (Auto) Lymph # (Auto) [place] # (Auto) Eos # (Auto) Baso # (Auto) WBC Differential Diff Scan Differential Comment Platelet Estimate Platelet Morphology POC Sodium Sodium POC Potassium Potassium POC Chloride Chloride Carbon Dioxide Anion Gap POC BUN BUN Creatinine POC Creatinine Estimated GFR POC Glucose 101 Random Glucose Calcium Total Bilirubin AST ALT Alkaline Phosphatase Ammonia Lactate Dehydrogenase Total Creatine Kinase CK-MB (CK-2) CK-MB (CK-2) % Troponin I Total Protein Albumin Triglycerides Cholesterol LDL Cholesterol, Calc HDL Cholesterol Cholesterol/HDL Ratio Urine Color [place] Urine Clarity Cloudy H Urine pH 5.0 Ur Specific [place] 1.019 Urine Protein 100 H Urine Glucose (UA) Negative Urine Ketones Negative Urine Occult Blood Large H Urine Nitrate Negative Urine Bilirubin Negative Urine Urobilinogen 4 or greater Ur Leukocyte Esterase Trace H Urine RBC 57 H Urine WBC 60 H Ur Squamous Epith Cells 3 Urine Bacteria Many H Urine Mucus Many H Micro UA Comment Culture indicated Ur Microscopic Review Not Reportable Urine Culture Comments Culture indicated 05/24/18 05/24/18 05/24/18 18:55 18:55 18:55 WBC RBC Hgb POC Hgb (Calc) 15.3 Hct POC Hct 45.0 MCV MCH MCHC RDW Plt Count MPV Prelim Diff (Auto) Neut % (Auto) Lymph % (Auto) [place] % (Auto) Eos % (Auto) Baso % (Auto) Neut # (Auto) Lymph # (Auto) [place] # (Auto) Eos # (Auto) Baso # (Auto) WBC Differential Diff Scan Differential Comment Platelet Estimate Platelet Morphology POC Sodium 125 L Sodium 127 L POC Potassium 6.1 H Potassium 6.1 H POC Chloride 92 L Chloride 93 L Carbon Dioxide 23.8 Anion Gap 10 POC BUN 76 H BUN 66 H Creatinine 1.14 POC Creatinine 1.0 Estimated GFR 63 L POC Glucose 93 Random Glucose 93 Calcium 8.1 L D Total Bilirubin 3.2 H AST 206 H ALT 334 H Alkaline Phosphatase 155 H Ammonia 23 Lactate Dehydrogenase 654 H Total Creatine Kinase 665 H CK-MB (CK-2) 9.4 H CK-MB (CK-2) % 1.4 Troponin I 0.62 H* Total Protein 6.1 L D Albumin 2.3 L Triglycerides Cholesterol LDL Cholesterol, Calc HDL Cholesterol Cholesterol/HDL Ratio Urine Color Urine Clarity Urine pH Ur Specific [place] Urine Protein Urine Glucose (UA) Urine Ketones Urine Occult Blood Urine Nitrate Urine Bilirubin Urine Urobilinogen Ur Leukocyte Esterase Urine RBC Urine WBC Ur Squamous Epith Cells Urine Bacteria Urine Mucus Micro UA Comment Ur Microscopic Review Urine Culture Comments 05/24/18 05/25/18 05/25/18 23:32 00:25 04:25 WBC RBC Hgb POC Hgb (Calc) Hct POC Hct MCV MCH MCHC RDW Plt Count MPV Prelim Diff (Auto) Neut % (Auto) Lymph % (Auto) [place] % (Auto) Eos % (Auto) Baso % (Auto) Neut # (Auto) Lymph # (Auto) [place] # (Auto) Eos # (Auto) Baso # (Auto) WBC Differential Diff Scan Differential Comment Platelet Estimate Platelet Morphology POC Sodium Sodium 131 L POC Potassium Potassium 5.2 H D POC Chloride Chloride 95 L Carbon Dioxide 24.5 Anion Gap 12 POC BUN BUN 56 H Creatinine 0.95 POC Creatinine Estimated GFR 77 L POC Glucose 79 Random Glucose 85 Calcium 8.5 Total Bilirubin 4.7 H AST 175 H ALT 296 H Alkaline Phosphatase 148 H Ammonia Lactate Dehydrogenase Total Creatine Kinase 652 H 618 H CK-MB (CK-2) 13.3 H 14.9 H CK-MB (CK-2) % 2.0 2.4 Troponin I 1.33 H* 1.50 H* Total Protein 5.8 L Albumin 2.3 L Triglycerides 84 Cholesterol 268 H LDL Cholesterol, Calc 192 H HDL Cholesterol 58.8 Cholesterol/HDL Ratio 4.55 Urine Color Urine Clarity Urine pH Ur Specific [place] Urine Protein Urine Glucose (UA) Urine Ketones Urine Occult Blood Urine Nitrate Urine Bilirubin Urine Urobilinogen Ur Leukocyte Esterase Urine RBC Urine WBC Ur Squamous Epith Cells Urine Bacteria Urine Mucus Micro UA Comment Ur Microscopic Review Urine Culture Comments 05/25/18 05/25/18 07:25 12:36 WBC 8.7 RBC 4.07 L Hgb 14.5 POC Hgb (Calc) Hct 42.5 POC Hct MCV 104.5 H MCH 35.6 H MCHC 34.1 RDW 15.2 Plt Count 36 L MPV 9.5 Prelim Diff (Auto) Slide review pending Neut % (Auto) 83.1 H Lymph % (Auto) 2.5 L [place] % (Auto) 13.7 H Eos % (Auto) 0.0 Baso % (Auto) 0.7 Neut # (Auto) 7.2 Lymph # (Auto) 0.2 L [place] # (Auto) 1.2 H Eos # (Auto) 0.0 Baso # (Auto) 0.1 WBC Differential . Diff Scan Auto diff confirmed Differential Comment . Platelet Estimate Low L Platelet Morphology Normal POC Sodium Sodium POC Potassium Potassium POC Chloride Chloride Carbon Dioxide Anion Gap POC BUN BUN Creatinine POC Creatinine Estimated GFR POC Glucose 84 Random Glucose Calcium Total Bilirubin AST ALT Alkaline Phosphatase Ammonia Lactate Dehydrogenase Total Creatine Kinase CK-MB (CK-2) CK-MB (CK-2) % Troponin I Total Protein Albumin Triglycerides Cholesterol LDL Cholesterol, Calc HDL Cholesterol Cholesterol/HDL Ratio Urine Color Urine Clarity Urine pH Ur Specific [place] Urine Protein Urine Glucose (UA) Urine Ketones Urine Occult Blood Urine Nitrate Urine Bilirubin Urine Urobilinogen Ur Leukocyte Esterase Urine RBC Urine WBC Ur Squamous Epith Cells Urine Bacteria Urine Mucus Micro UA Comment Ur Microscopic Review Urine Culture Comments Culture Results: Microbiology 05/24/18 15:00 Urine Culture - Preliminary Clean Catch Urine gram negative rods Imaging Studies: Impressions Head CTA 05/24/18 17:44 CONCLUSION: 1. No evidence of proximal intracranial steno-occlusive disease or intraluminal filling defect. 2. No evidence of aneurysm, vascular malformation or vasculopathy. Neck CTA 05/24/18 17:44 CONCLUSION: 1. Significant plaque identified in both carotid bifurcations with moderate to severe stenosis in the proximal right ICA and mild to moderate stenosis in the proximal left ICA. 2. Moderate to severe stenosis at the origin of the left subclavian artery secondary to calcified plaque. Degree of narrowing is in the 50-69% range. 3. Patent vertebral arteries. Head CT 05/24/18 17:48 CONCLUSION: 1. No evidence of acute infarct, hemorrhage, mass or edema. 2. Cerebral white matter hypodensity characteristic of chronic microvascular ischemic disease. Report was called by Curtis to Dr. Enciso at 18:18.] Medications: Active Medications Generic Name Dose Route Start Last Admin Trade Name Freq PRN Reason Stop Dose Admin Amlodipine Besylate 5 mg 05/23/18 16:45 05/25/18 13:21 Norvasc PO Not Given DAILY CRYSTAL Dexamethasone 4 mg 05/21/18 18:00 05/25/18 13:22 Decadron PO Not Given TID CRYSTAL Finasteride 5 mg 05/22/18 09:00 05/25/18 13:21 Proscar PO Not Given DAILY CRYSTAL Sodium Chloride 1,000 mls @ 30 mls/hr 05/21/18 10:30 05/25/18 13:21 Ns Inj IV.SIG Not Given .Q24H CRYSTAL Sodium Chloride 1,000 mls @ 70 mls/hr 05/24/18 20:15 05/24/18 22:42 Ns Inj IV.CONT 70 mls/hr .[id number] CRYSTAL Administration Lactulose 30 ml 05/22/18 09:00 05/25/18 13:20 Lactulose Liq PO Not Given DAILY CRYSTAL Lisinopril 10 mg 05/22/18 09:00 05/25/18 13:21 Prinivil PO Not Given DAILY CRYSTAL Oxycodone HCl 5 mg 05/21/18 16:27 05/23/18 05:27 Roxicodone PO 5 mg Q4H PRN Administration PAIN SCALE 1 TO 10 Objective Remarks: GENERAL: Ill-appearing male patient, appears uncomfortable. SKIN: Pale, warm and dry. HEAD: Normocephalic. EYES: No scleral icterus. No injection or drainage. NECK: Supple, trachea midline. CARDIOVASCULAR: Regular rate and rhythm without murmurs. RESPIRATORY: Posterior breath sounds clear, equal bilaterally. No accessory muscle use. GASTROINTESTINAL: Abdomen soft, non-tender, nondistended. EXTREMITIES: No cyanosis, or edema. MUSCULOSKELETAL: Adequate muscle tone. NEUROLOGICAL: Not following instructions, does not answer questions. Mumbles words, mostly unintelligible. Assessment/Plan - Plan This is a 72-year-old male patient with hepatocellular carcinoma. He is status post transarterial chemoembolization on 05/12/2018. The patient was scheduled for discharge yesterday 05/24/2018 when he had a mental status change and staff noticed confusion. CT brain did not should any acute finding. Neurology is now following. Plan: 1. Hepatocellular carcinoma, status post transarterial chemoembolization. We will continue to monitor liver enzymes and ammonia levels. 2. Mental status change, neurology now following. CT brain negative for acute findings. MRI brain is pending. 3. CT neck showed moderate to severe carotid stenosis. Patient also noted to have elevated troponin today. Cardiology has been consulted. 4. CT abdomen, pending. 5. Thrombocytopenia, platelets have trended down to 36K from 58K. Will continue to monitor, no obvious signs of bleeding, could be reactive in nature. 6. Urine culture positive for gram-negative rods, management per attending physician. - Attending Statement The exam, history, and the medical decision-making described in the above note were completed with the assistance of the mid-level provider. I reviewed and agree with the findings presented. I attest that I had a [id number] encounter with the patient on the same day, and personally performed and documented my assessment and findings in the medical record. Pt is aphasic and restless Does not follow commands. CT A/P reviewed= no significant findinds to explain current situation. MRI brain = mutiple peripheral infarcts. He has CVA. Not a candidate for anticoagulation becaue of thrombocytopenia
[2018-05-25 16:38] LABS: Hemoglobin A1c 5.9 % (4.3-6.0)
--- NOTE | 2018-05-25 17:18 | P.PN ---
Subjective Interval history: This is a pleasant 72 y/o Male with Hepatocellular Carcinoma, who had Transarterial Chemoembolization on 05/12/18 status post Transpleural Liver Biopsy and Liver cryoablation, was placed a Right chest tube that then was removed and clear for discharge by Interventional Radiology, the patient developed Uncontrolled Hypertension and Hyperkalemia for this reason his discharged was held, on the day of discharge he developed acute mental changes, transferred to Intensive Care unit and consulted Neurology specialist Discussed with Neurology specialist unable to give Aspirin yesterday due to severe Thrombocytopenia, has Aphasia with probable Acute Ischemic Stroke, he has CT neck showing moderate to severe carotid stenosis, consulted Vascular specialist, CTA brain negative, awaiting for MRI brain, seen by accounts payable specialist due to elevated Troponin level, with diagnosis NSTEMI, permissive Hypertension allowed, discussed with nurse. Physical Exam Vital signs: Vital Signs 05/24/18 18:28 05/24/18 20:00 05/25/18 00:00 Temperature 98.8 F Pulse Rate 125 H Respiratory Rate 18 13 Blood Pressure 167/84 H Pulse Oximetry 95 05/25/18 00:10 05/25/18 02:10 05/25/18 04:00 Temperature 98.8 F 97.9 F 97.9 F Pulse Rate 125 H 98 H 90 Respiratory Rate 18 18 18 Blood Pressure 167/84 H 199/109 H 156/71 H Pulse Oximetry 05/25/18 04:10 05/25/18 06:10 05/25/18 08:00 Temperature 97.9 F Pulse Rate 90 104 H 106 H Respiratory Rate 18 18 Blood Pressure 156/71 H 155/72 H Pulse Oximetry 97 05/25/18 08:10 05/25/18 10:00 05/25/18 10:10 Temperature 98.1 F Pulse Rate 106 H 104 H 104 H Respiratory Rate 14 15 Blood Pressure 166/74 H 173/84 H Pulse Oximetry 99 98 05/25/18 12:00 05/25/18 12:10 05/25/18 14:00 Temperature 97.9 F Pulse Rate 84 84 108 H Respiratory Rate 15 Blood Pressure 155/68 H Pulse Oximetry 96 05/25/18 14:10 05/25/18 16:00 Temperature Pulse Rate 108 H 108 H Respiratory Rate 20 Blood Pressure 152/95 H Pulse Oximetry 96 Intake & Output 05/24/18 05/25/18 05/25/18 18:59 06:59 18:59 Intake Total 110 / 110 Output Total 550 / 550 1425 / 1425 Balance -550 / -550 -1315 / -1315 Weight 73 kg Intake: IV 110 / 110 Calcium Chloride Inj 1 GM In NS 110 / 110 Inj 100 ML @ 110 mls/hr IV.SIG ONCE ONE Rx#:[id number] Output: Urine 550 / 550 Urine Amount (Catheter) 1425 / 1425 Indwelling Urethral Catheter 1425 / 1425 Other: Date of Last Bowel Movement 05/23/18 05/24/18 05/24/18 Narrative: GENERAL: Well Developed, unable to give information. SKIN: Focused skin assessment warm/dry. HEAD: Atraumatic. Normocephalic. EYES: Pupils equal and round. No scleral icterus. ENT: No nasal bleeding or discharge. Mucous membranes pink and moist. NECK: Trachea midline. No JVD. Supple. CARDIOVASCULAR: systolic heart Murmur, PVCs heard. RESPIRATORY: No accessory muscle use. clear to auscultation bilateral. GASTROINTESTINAL: Abdomen soft, diffusely tender, moderately distended. MUSCULOSKELETAL: No obvious deformities. No clubbing. No cyanosis. No edema. NEUROLOGICAL: Awake, but unable to speak, just one work that he repeats, and has right Hemiparesis. PSYCHIATRIC: unable to examine - Urinary Catheter Management Straight Cath placed during this visit: yes, but has since been removed by the nurse Reason for continuing: Decision to DC catheter Insertion date: 05/22/18 Insertion time: 04:00 Removal date: 05/22/18 Removal time: 04:20 Indwelling Urethral Catheter Cath placed during this visit: yes Reason for continuing: Other continuation reason Insertion date: 05/24/18 Insertion time: 18:45 Results - Labs CBC & Chem 7: 05/26/18 03:48 05/26/18 03:48 Laboratory Results - last 24 hr 05/24/18 05/24/18 05/24/18 15:00 17:42 18:55 WBC 10.2 RBC 4.23 L Hgb 15.2 POC Hgb (Calc) Hct 44.1 POC Hct MCV 104.2 H MCH 35.8 H MCHC 34.4 RDW 15.2 Plt Count 37 L D MPV 8.4 Prelim Diff (Auto) Neut % (Auto) Lymph % (Auto) [place] % (Auto) Eos % (Auto) Baso % (Auto) Neut # (Auto) Lymph # (Auto) [place] # (Auto) Eos # (Auto) Baso # (Auto) WBC Differential Diff Scan Differential Comment Platelet Estimate Platelet Morphology POC Sodium Sodium POC Potassium Potassium POC Chloride Chloride Carbon Dioxide Anion Gap POC BUN BUN Creatinine POC Creatinine Estimated GFR POC Glucose 101 Random Glucose Calcium Total Bilirubin AST ALT Alkaline Phosphatase Ammonia Lactate Dehydrogenase Total Creatine Kinase CK-MB (CK-2) CK-MB (CK-2) % Troponin I Total Protein Albumin Triglycerides Cholesterol LDL Cholesterol, Calc HDL Cholesterol Cholesterol/HDL Ratio Urine Color [place] Urine Clarity Cloudy H Urine pH 5.0 Ur Specific [place] 1.019 Urine Protein 100 H Urine Glucose (UA) Negative Urine Ketones Negative Urine Occult Blood Large H Urine Nitrate Negative Urine Bilirubin Negative Urine Urobilinogen 4 or greater Ur Leukocyte Esterase Trace H Urine RBC 57 H Urine WBC 60 H Ur Squamous Epith Cells 3 Urine Bacteria Many H Urine Mucus Many H Micro UA Comment Culture indicated Ur Microscopic Review Not Reportable Urine Culture Comments Culture indicated 05/24/18 05/24/18 05/24/18 18:55 18:55 18:55 WBC RBC Hgb POC Hgb (Calc) 15.3 Hct POC Hct 45.0 MCV MCH MCHC RDW Plt Count MPV Prelim Diff (Auto) Neut % (Auto) Lymph % (Auto) [place] % (Auto) Eos % (Auto) Baso % (Auto) Neut # (Auto) Lymph # (Auto) [place] # (Auto) Eos # (Auto) Baso # (Auto) WBC Differential Diff Scan Differential Comment Platelet Estimate Platelet Morphology POC Sodium 125 L Sodium 127 L POC Potassium 6.1 H Potassium 6.1 H POC Chloride 92 L Chloride 93 L Carbon Dioxide 23.8 Anion Gap 10 POC BUN 76 H BUN 66 H Creatinine 1.14 POC Creatinine 1.0 Estimated GFR 63 L POC Glucose 93 Random Glucose 93 Calcium 8.1 L D Total Bilirubin 3.2 H AST 206 H ALT 334 H Alkaline Phosphatase 155 H Ammonia 23 Lactate Dehydrogenase 654 H Total Creatine Kinase 665 H CK-MB (CK-2) 9.4 H CK-MB (CK-2) % 1.4 Troponin I 0.62 H* Total Protein 6.1 L D Albumin 2.3 L Triglycerides Cholesterol LDL Cholesterol, Calc HDL Cholesterol Cholesterol/HDL Ratio Urine Color Urine Clarity Urine pH Ur Specific [place] Urine Protein Urine Glucose (UA) Urine Ketones Urine Occult Blood Urine Nitrate Urine Bilirubin Urine Urobilinogen Ur Leukocyte Esterase Urine RBC Urine WBC Ur Squamous Epith Cells Urine Bacteria Urine Mucus Micro UA Comment Ur Microscopic Review Urine Culture Comments 05/24/18 05/25/18 05/25/18 23:32 00:25 04:25 WBC RBC Hgb POC Hgb (Calc) Hct POC Hct MCV MCH MCHC RDW Plt Count MPV Prelim Diff (Auto) Neut % (Auto) Lymph % (Auto) [place] % (Auto) Eos % (Auto) Baso % (Auto) Neut # (Auto) Lymph # (Auto) [place] # (Auto) Eos # (Auto) Baso # (Auto) WBC Differential Diff Scan Differential Comment Platelet Estimate Platelet Morphology POC Sodium Sodium 131 L POC Potassium Potassium 5.2 H D POC Chloride Chloride 95 L Carbon Dioxide 24.5 Anion Gap 12 POC BUN BUN 56 H Creatinine 0.95 POC Creatinine Estimated GFR 77 L POC Glucose 79 Random Glucose 85 Calcium 8.5 Total Bilirubin 4.7 H AST 175 H ALT 296 H Alkaline Phosphatase 148 H Ammonia Lactate Dehydrogenase Total Creatine Kinase 652 H 618 H CK-MB (CK-2) 13.3 H 14.9 H CK-MB (CK-2) % 2.0 2.4 Troponin I 1.33 H* 1.50 H* Total Protein 5.8 L Albumin 2.3 L Triglycerides 84 Cholesterol 268 H LDL Cholesterol, Calc 192 H HDL Cholesterol 58.8 Cholesterol/HDL Ratio 4.55 Urine Color Urine Clarity Urine pH Ur Specific [place] Urine Protein Urine Glucose (UA) Urine Ketones Urine Occult Blood Urine Nitrate Urine Bilirubin Urine Urobilinogen Ur Leukocyte Esterase Urine RBC Urine WBC Ur Squamous Epith Cells Urine Bacteria Urine Mucus Micro UA Comment Ur Microscopic Review Urine Culture Comments 05/25/18 05/25/18 07:25 12:36 WBC 8.7 RBC 4.07 L Hgb 14.5 POC Hgb (Calc) Hct 42.5 POC Hct MCV 104.5 H MCH 35.6 H MCHC 34.1 RDW 15.2 Plt Count 36 L MPV 9.5 Prelim Diff (Auto) Slide review pending Neut % (Auto) 83.1 H Lymph % (Auto) 2.5 L [place] % (Auto) 13.7 H Eos % (Auto) 0.0 Baso % (Auto) 0.7 Neut # (Auto) 7.2 Lymph # (Auto) 0.2 L [place] # (Auto) 1.2 H Eos # (Auto) 0.0 Baso # (Auto) 0.1 WBC Differential . Diff Scan Auto diff confirmed Differential Comment . Platelet Estimate Low L Platelet Morphology Normal POC Sodium Sodium POC Potassium Potassium POC Chloride Chloride Carbon Dioxide Anion Gap POC BUN BUN Creatinine POC Creatinine Estimated GFR POC Glucose 84 Random Glucose Calcium Total Bilirubin AST ALT Alkaline Phosphatase Ammonia Lactate Dehydrogenase Total Creatine Kinase CK-MB (CK-2) CK-MB (CK-2) % Troponin I Total Protein Albumin Triglycerides Cholesterol LDL Cholesterol, Calc HDL Cholesterol Cholesterol/HDL Ratio Urine Color Urine Clarity Urine pH Ur Specific [place] Urine Protein Urine Glucose (UA) Urine Ketones Urine Occult Blood Urine Nitrate Urine Bilirubin Urine Urobilinogen Ur Leukocyte Esterase Urine RBC Urine WBC Ur Squamous Epith Cells Urine Bacteria Urine Mucus Micro UA Comment Ur Microscopic Review Urine Culture Comments Microbiology 05/24/18 15:00 Clean Catch Urine Urine Culture - Preliminary gram negative rods - Imaging Impressions Head CTA 05/24/18 17:44 CONCLUSION: 1. No evidence of proximal intracranial steno-occlusive disease or intraluminal filling defect. 2. No evidence of aneurysm, vascular malformation or vasculopathy. Neck CTA 05/24/18 17:44 CONCLUSION: 1. Significant plaque identified in both carotid bifurcations with moderate to severe stenosis in the proximal right ICA and mild to moderate stenosis in the proximal left ICA. 2. Moderate to severe stenosis at the origin of the left subclavian artery secondary to calcified plaque. Degree of narrowing is in the 50-69% range. 3. Patent vertebral arteries. Head CT 05/24/18 17:48 CONCLUSION: 1. No evidence of acute infarct, hemorrhage, mass or edema. 2. Cerebral white matter hypodensity characteristic of chronic microvascular ischemic disease. Report was called by Curtis to Dr. Enciso at 18:18.] - Procedures Liver biopsy and Cryoablation of the Liver tumor, due to technical difficulty to see the mass was necessary to perform transpleural approach and left right chest tube to correct Hydropneumothorax. Assessment and Plan - Assessment (1) Arthritis Code(s): M19.90 - Unspecified osteoarthritis, unspecified site Status: Acute (2) Cataract Code(s): H26.9 - Unspecified cataract Status: Acute (3) Cirrhosis Code(s): K74.60 - Unspecified cirrhosis of liver Status: Acute (4) H/O rotator cuff surgery Code(s): Z98.890 - Other specified postprocedural states Status: Acute (5) HTN (hypertension) Code(s): I10 - Essential (primary) hypertension Status: Acute (6) PVD (peripheral vascular disease) Code(s): I73.9 - Peripheral vascular disease, unspecified Status: Acute - Plan 1. Hepatocellular Carcinoma sent by public health specialist Doctor Mark Anthony Live for Interventional Radiology management he has high risk for Biopsy, had today chemoembolization of tumors recently today brought in for Liver biopsy and Cryoablation of the Liver tumor, due to technical difficulty to see the mass was necessary to perform transpleural approach and left right chest tube to correct Hydropneumothorax. Chest tube removed this morning, improving on new CXR. okay from IR specialist for discharge. 2. Cirrhosis stable/Alcoholic Hepatitis 3. . Hypertension Uncontrolled at this time Permissive Hypertension 4. Acute ischemic Stroke discussed with doctor Finley initially, then with Doctor Tan, unable to give Aspirin due to severe Thrombocytopenia, has Aphasia with probable Acute Ischemic Stroke, he has CT neck showing moderate to severe carotid stenosis, consulted Vascular specialist, CTA brain negative, awaiting for MRI brain, seen by accounts payable specialist due to elevated Troponin level, with diagnosis NSTEMI, permissive Hypertension allowed, discussed with nurse. PT/OT and Speech Therapy. 5. Carotid Stenosis Vascular surgery consult 6. NSTEMI Cardiology following. 7. PAD by history Continue intensive Care Management. DVT prophylaxis SCDs. Code Status: Full code. Discussed Condition With: Patient and Nurse. Discharge Planning: Once cleared by specialists.
[2018-05-25] MEDS: Sod Chloride 0.9% Inj 1,000 ML IV.CONT SCH (17:34)
[2018-05-25] MEDS: Morphine Sulfate Inj 2 MG/ML Vial IV.PUSH PRN (20:10)
--- NOTE | 2018-05-25 21:25 | CT ---
EXAM DATE: 05/25/2018 8:49 PM EDT AGE/SEX: 72 years / Male INDICATIONS: Right upper quadrant pain post liver ablation. CLINICAL DATA: This is the patient's subsequent encounter. Patient reports that signs and symptoms h ave been present for 4 - 6 days and indicates a pain score of Nonresponsive. MEDICAL/SURGICAL HISTORY: Cirrhosis. Hypertension. None. RADIATION DOSE: 6.50 CTDI (mGy) COMPARISON: [facility], CTA ABDOMEN AND PELVIS, 05/05/2018. . TECHNIQUE: Multiple contiguous axial images were obtained through the abdomen. Images were obtained using multiple row detector helical technique. Using automated exposure control and adjustment of the mA and/or kV according to patient size, radiation dose was kept as low as reasonably achievable to o btain optimal diagnostic quality images. DICOM format image data is available electronically for rev iew and comparison. FINDINGS: Lower Lungs: There is a minimal right pleural effusion. Liver: There is low density seen throughout the posterior segment of the right lobe of the liver with numerous suspected calcifications or foci of contrast seen within the posterior segment the right lo be of the liver from the prior ablation. The gallbladder appears distended. Spleen: Homogeneous density without enlargement. Pancreas: Unremarkable without mass or calcification. Kidneys: Normal in size and shape. No evidence of mass or hydronephrosis. Adrenal Glands: Unremarkable. Aorta: The aorta and proximal iliac vessels are grossly unremarkable without aneurysmal dilation. A therosclerotic calcifications are seen in the arterial system. Bowel/Mesentery: There are colonic diverticula particularly in the sigmoid region. Abdominal Wall: There is a small umbilical hernia containing mesenteric fat. Retroperitoneum: No evidence of adenopathy in the retrocrural, para-aortic, or deep pelvic regions. Bladder: There is a Graham catheter in place. Air is seen throughout the urinary bladder lumen. There appears to be some debris within the urinary bladder. Reproductive Organs: Prostatic calcifications are present. Inguinal: The inguinal region is unremarkable without evidence of adenopathy. There is are clips in the right inguinal region. Bony Structures: There is degenerative change in the lumbar spine. CONCLUSION: 1. Post ablation changes with increased density seen throughout the posterior segment of the right l obe of liver. 2. Distended gallbladder. 3. Colonic diverticula without inflammatory change. 4. Air seen within the urinary bladder lumen. There also appears to be some debris within the urinar y bladder. Electronically signed by: Sampson New MD 05/25/2018 9:23 PM EDT
--- NOTE | 2018-05-25 21:51 | MR ---
EXAM DATE: 05/25/2018 9:12 PM EDT AGE/SEX: 72 years / Male INDICATIONS: Stroke. CLINICAL DATA: This is the patient's initial encounter. Patient reports that signs and symptoms have been present for 1 day and indicates a pain score of 0/10. MEDICAL/SURGICAL HISTORY: Hypertension. Liver cancer. . Rotator cuff. [place] [facility] [place]. . TECHNIQUE: Multiplanar, multisequence examination of the brain was performed without contrast. FINDINGS: There is motion seen throughout the study. Cerebrum: There are numerous peripheral areas of signal abnormality seen throughout the cerebral hem ispheres bilaterally involving the frontal, parietal temporal and occipital lobes. There is also smal l areas of focal abnormal signal in the cerebellum. These are consistent with numerous peripheral inf arcts. The ventricles are normal for age. No evidence of midline shift, mass lesion. There is a foc al 0.9 cm area of signal abnormality in the left thalamus which could be the sequela of prior hemorrh age. No extraaxial fluid collections are seen. The pituitary gland and suprasellar cistern are antoine l in configuration. White Matter: Multiple focal areas of increased signal seen throughout the cerebral white matter con sistent with areas of focal demyelination. Posterior Fossa: The cerebellum and brainstem are intact. The 4th ventricle is midline. The cerebel lopontine angle is unremarkable. The cerebellar tonsils are normal in position. Extracranial: The visualized portions of the orbits and paranasal sinuses are unremarkable. CONCLUSION: 1. Numerous small peripheral areas of signal are not seen throughout the diffusion weighted images c onsistent with widespread peripheral areas of infarction involving both cerebral hemispheres and scat tered in the cerebellum. 2. Small area of signal abnormality within the left thalamus likely from prior hemorrhage. 3. Multiple focal areas of demyelination likely from small vessel ischemic change. Electronically signed by: Sampson New MD 05/25/2018 9:50 PM EDT
[2018-05-26] MEDS: Morphine Sulfate Inj 2 MG/ML Vial IV.PUSH PRN ×3 (00:15→10:50)
[2018-05-26] MEDS ORDERED: Dextrose 50% in Water Syringe 50 ML ONE (00:22)
[2018-05-26] MEDS ORDERED: Dextrose 50% in Water 50 ML Vial IV.PUSH PRN (00:47)
[2018-05-26] MEDS: Dextrose 5%/NaCl 0.45% Inj 1,000 ML IV.CONT SCH ×2 (01:05→15:37)
[2018-05-26 04:22] LABS: Eos % (Auto) 0.2 % (0.0-4.0); Hematocrit 40.1 % (39.0-51.0); Hemoglobin 13.7 gm/dL (13.0-17.0); Lymph # (Auto) 0.1 th/mm3 (1.0-4.8); Lymph % (Auto) 1.7 % (9.0-44.0); Mean Corpuscular HGB Conc 34.1 % (32.0-36.0); Mean Corpuscular Hemoglobin 35.8 pg (27.0-34.0); Mean Platelet Volume 9.5 fL (7.0-11.0); Neut # (Auto) 6.3 th/mm3 (1.8-7.7); Neut % (Auto) 84.1 % (16.0-70.0); Platelet Count 24 th/mm3 (150-450); Red Blood Count 3.82 mil/mm3 (4.50-5.90); Red Cell Distribution Width 15.1 % (11.6-17.2); White Blood Count 7.5 th/mm3 (4.0-11.0)
[2018-05-26 04:51] LABS: Alanine Aminotransferase 260 U/L (12-78); Albumin 2.2 g/dL (3.4-5.0); Alkaline Phosphatase 137 U/L (45-117); Anion Gap 11 meq/L (5-15); Aspartate Aminotransferase 160 U/L (15-37); Blood Urea Nitrogen 42 mg/dL (7-18); Calcium 8.2 mg/dL (8.5-10.1); Carbon Dioxide 25.4 meq/L (21.0-32.0); Chloride 98 meq/L (98-107); Glomerular Filtration Rate 89 mL/min (>89); Glucose,Random 101 mg/dL (74-106); Potassium 4.7 meq/L (3.5-5.1); Sodium 134 meq/L (136-145); Total Protein 5.5 g/dL (6.4-8.2)
--- NOTE | 2018-05-26 06:33 | P.CONCA ---
History of Present Illness Consult date: 05/25/18 Primary Care Provider: Chanda Petit Family Provider: Chanda Petit Chief Complaint: NSTEMI History of Present Illness: 72 year old male with a history of alcoholic cirrhosis and hepatocellular carcinoma, HTN who had a hydropneumothorax after a transarterial chemoembolization on 05/12.He had a chest tube and was scheduled for discharge on 05/24; however, he had an episode of aphasia and confusion after using the restroom. He currently mumbles partial words and most of the history was obtained from the nurse. He had a CTA showing moderate to severe right carotid disease and mild to moderate left subclavian disease.Neurology has been consulted. Cardiology consulted as he has an elevated troponin level. Review of telemetry shows sinus tachycardia. Review of Systems unable to obtain from patient secondary to the mental status. [facility] - Medical History Medical History: Medical History (Last Reviewed 05/25/18 @ 14:01 by Raegan Khan) Cataract (Acute) PVD (peripheral vascular disease) (Acute) Arthritis (Acute) HTN (hypertension) (Acute) Cirrhosis (Acute) - Surgical History Surgical History: Surgical History (Last Reviewed 05/25/18 @ 14:01 by Raegan Khan) H/O rotator cuff surgery (Acute) - Family History Family History: Family History (Last Updated 05/12/18 @ 17:10 by Bro Enciso MD) Grandparent No problems noted. Father Family history of acute myocardial infarction Brother Prostate cancer Other Stroke - Tobacco History Second Hand Smoke Exposure: No Smoking Status: Never smoker - Alcohol History How Often Do You Have a Drink Containing Alcohol: Monthly or less - Substance Use History Substance History: No History of Abuse - Travel History Recent Travel in the [facility] Within the Last 8 Weeks: No Recent Travel Out of the Country Within the Last 8 Weeks: No Medications and Allergies Active Medications: Active Medications Amlodipine Besylate (Norvasc) 5 mg PO DAILY [facility] Last Admin: 05/25/18 13:21 Dose: Not Given Dexamethasone Sodium Phosphate (Decadron Inj) 4 mg IV.PUSH TID [facility] Last Admin: 05/25/18 23:00 Dose: 4 mg Dextrose (D50w Vial) 50 ml IV.PUSH UNSCH PRN PRN Reason: PER HYPOGLYCEMIA PROTOCOL Last Admin: 05/26/18 01:01 Dose: 25 ml Finasteride (Proscar) 5 mg PO DAILY [facility] Last Admin: 05/25/18 13:21 Dose: Not Given Glucagon (Glucagon Inj) 1 mg OTHER PRN PRN PRN Reason: for Hypoglycemia Protocol Dextrose/Sodium Chloride (D5w/1/2 Ns Inj) 1,000 mls @ 70 mls/hr IV.CONT .[id number] [facility] Last Admin: 05/26/18 01:05 Dose: 70 mls/hr Lactulose (Lactulose Liq) 30 ml PO DAILY [facility] Last Admin: 05/25/18 13:20 Dose: Not Given Lisinopril (Prinivil) 10 mg PO DAILY [facility] Last Admin: 05/25/18 13:21 Dose: Not Given Morphine Sulfate (Morphine Inj) 2 mg IV.PUSH Q4H PRN PRN Reason: PAIN SCALE 6 TO 10 Last Admin: 05/26/18 04:02 Dose: 2 mg Oxycodone HCl (Roxicodone) 5 mg PO Q4H PRN PRN Reason: PAIN SCALE 1 TO 5 Last Admin: 05/23/18 05:27 Dose: 5 mg Allergies Allergy/AdvReac Type Severity Reaction Status Date / Time aspirin Allergy Abdominal Verified 05/21/18 10:11 Pain Penicillins Allergy Drowsiness Verified 05/21/18 10:11 Sulfa (Sulfonamide Allergy Flushing Verified 05/21/18 10:11 Antibiotics) Home Medications Medication Instructions Recorded Confirmed Type finasteride 5 mg PO DAILY 04/30/18 05/21/18 History lisinopril 10 mg PO DAILY 05/12/18 05/21/18 History dexamethasone 4 mg PO TID 05/21/18 05/21/18 History lactulose 1 g PO DAILY 05/21/18 05/21/18 History prochlorperazine 10 mg PO TID 05/21/18 05/21/18 History tramadol 50 mg PO Q6H 05/21/18 05/21/18 History Exam Vital signs: Vital Signs 05/25/18 08:00 05/25/18 08:10 05/25/18 10:00 Temperature 98.1 F Pulse Rate 106 H 106 H 104 H Respiratory Rate 14 Blood Pressure 166/74 H Pulse Oximetry 99 05/25/18 10:10 05/25/18 12:00 05/25/18 12:10 Temperature 97.9 F Pulse Rate 104 H 84 84 Respiratory Rate 15 15 Blood Pressure 173/84 H 155/68 H Pulse Oximetry 98 96 05/25/18 14:00 05/25/18 14:10 05/25/18 16:00 Temperature Pulse Rate 108 H 108 H 108 H Respiratory Rate 20 Blood Pressure 152/95 H Pulse Oximetry 96 05/25/18 16:10 05/25/18 18:00 05/25/18 18:10 Temperature 98.1 F Pulse Rate 108 H 89 89 Respiratory Rate 19 18 Blood Pressure 147/97 H 146/64 H Pulse Oximetry 96 95 05/25/18 20:00 05/25/18 22:00 05/26/18 00:00 Temperature 98.5 F 98.7 F Pulse Rate 112 H 11 L 98 H Respiratory Rate 14 18 Blood Pressure 169/78 H 166/84 H Pulse Oximetry 96 94 L 05/26/18 02:00 05/26/18 04:00 05/26/18 06:00 Temperature 98.7 F Pulse Rate 107 H 112 H 101 H Respiratory Rate 18 Blood Pressure 152/68 H Pulse Oximetry 95 Intake & Output 05/25/18 05/25/18 05/26/18 06:59 18:59 06:59 Intake Total 110 / 110 700 / 700 Output Total 1425 / 1425 1000 / 1000 900 / 900 Balance -1315 / -1315 -300 / -300 -900 / -900 Weight 73 kg 70.6 kg Intake: IV 110 / 110 700 / 700 NS Inj 1,000 ML @ 70 mls/hr IV. 700 / 700 CONT .[id number] [facility] Rx#:[id number] Calcium Chloride Inj 1 GM In NS 110 / 110 Inj 100 ML @ 110 mls/hr IV.SIG ONCE ONE Rx#:[id number] Output: Urine Amount (Catheter) 1425 / 1425 1000 / 1000 900 / 900 Indwelling Urethral Catheter 1425 / 1425 1000 / 1000 900 / 900 Other: Date of Last Bowel Movement 05/24/18 05/24/18 05/24/18 # Bowel Movements 0 0 - Constitutional somnolent - Routine HEENT Exam Head: Present: normocephalic Eye: Present: EOMI ENT: Present: mucous membranes moist - Routine Neck Exam Present: supple - Routine Respiratory Exam Present: CTA bilaterally - Routine Cardiovascular Exam Present: S1, S2, tachycardia - Routine Abdominal Exam Present: soft, normoactive bowel sounds - Routine Extremities Exam Absent: edema - Routine Skin Exam Present: intact - Routine Neurological Exam Present: altered mental status - Detailed Psychiatric Exam Speech and movement: Present: slurred speech Results 05/26/18 03:48 05/26/18 03:48 Cardiac Enzymes 05/25/18 05/26/18 Range/Units 04:25 03:48 AST 175 H 160 H (15-37) U/L CK-MB (CK-2) 14.9 H (0.5-3.6) ng/mL Troponin I 1.50 H* (0.02-0.05) ng/mL Lipids 05/25/18 Range/Units 04:25 Triglycerides 84 (42-150) mg/dL Cholesterol 268 H (120-200) mg/dL HDL Cholesterol 58.8 (40.0-60.0) mg/dL Cholesterol/HDL Ratio 4.55 Ratio CBC 05/25/18 05/26/18 Range/Units 07:25 03:48 WBC 8.7 7.5 (4.0-11.0) th/mm3 RBC 4.07 L 3.82 L (4.50-5.90) mil/mm3 Hgb 14.5 13.7 (13.0-17.0) gm/dL Hct 42.5 40.1 (39.0-51.0) % Plt Count 36 L 24 L D (150-450) th/mm3 Neut # (Auto) 7.2 6.3 (1.8-7.7) th/mm3 Lymph # (Auto) 0.2 L 0.1 L (1.0-4.8) th/mm3 Sampson # (Auto) 1.2 H 1.0 H (0.0-0.9) th/mm3 Eos # (Auto) 0.0 0.0 (0.0-0.4) th/mm3 Baso # (Auto) 0.1 0.0 (0.0-0.2) th/mm3 Comprehensive Metabolic Panel 05/25/18 05/26/18 Range/Units 04:25 03:48 Sodium 131 L 134 L (136-145) meq/L Potassium 5.2 H D 4.7 (3.5-5.1) meq/L Chloride 95 L 98 (98-107) meq/L Carbon Dioxide 24.5 25.4 (21.0-32.0) meq/L BUN 56 H 42 H (7-18) mg/dL Creatinine 0.95 0.84 (0.60-1.30) mg/dL Calcium 8.5 8.2 L (8.5-10.1) mg/dL AST 175 H 160 H (15-37) U/L ALT 296 H 260 H (12-78) U/L Alkaline Phosphatase 148 H 137 H (45-117) U/L Total Protein 5.8 L 5.5 L (6.4-8.2) g/dL Albumin 2.3 L 2.2 L (3.4-5.0) g/dL Intake and Output 05/25/18 05/25/18 05/26/18 14:59 22:59 06:59 Intake Total 700 / 700 Output Total 1000 / 1000 900 / 900 Balance -300 / -300 -900 / -900 Intake: IV 700 / 700 NS Inj 1,000 ML @ 70 mls/hr IV. 700 / 700 CONT .[id number] [facility] Rx#:[id number] Output: Urine Amount (Catheter) 1000 / 1000 900 / 900 Indwelling Urethral Catheter 1000 / 1000 900 / 900 Other: Date of Last Bowel Movement 05/24/18 05/24/18 05/24/18 # Bowel Movements 0 0 Weight 70.6 kg Patient Weight 05/26/18 06:59 Weight 70.6 kg EKG interpretations - EKG EKG results cardiology: interpreted by ERMD (sinus tachycardia) Assessment and Plan - Plan NSTEMI- likely type 2 secondary to demand ischemia. Will order a transthoracic echo to evaluate LV function and RWMA. Further workup pending the results. Aphasia- Given the carotid stenosis, would recommend Vascular Surgery consult. Neurology following. Thrombocytopenia-holding ASA, trending PLTs HTN- agree with allowing permissive hypertension.
[2018-05-26] MEDS: Lisinopril 10 MG Tablet PO SCH (10:51)
[2018-05-26] MEDS: Finasteride 5 MG Tablet PO SCH (10:51)
[2018-05-26] MEDS: amLODIPine 5 MG Tablet PO SCH (10:51)
--- NOTE | 2018-05-26 12:06 | P.PNONC ---
Subjective Interval history: Afebrile Patient answering questions with simple "no" answers Denies pain at bedside states he seems more lucid today She has just finished some oral care and states she did not see any bleeding or oozing gums He is noted to have a few clots in his Graham catheter Remains in three-point restraints Asking to sit up Objective Vital Signs/Intake & Output: Vital Signs 05/25/18 12:10 05/25/18 14:00 05/25/18 14:10 Temperature 97.9 F Pulse Rate 84 108 H 108 H Respiratory Rate 15 20 Blood Pressure 155/68 H 152/95 H Pulse Oximetry 96 96 05/25/18 16:00 05/25/18 16:10 05/25/18 18:00 Temperature 98.1 F Pulse Rate 108 H 108 H 89 Respiratory Rate 19 Blood Pressure 147/97 H Pulse Oximetry 96 05/25/18 18:10 05/25/18 20:00 05/25/18 22:00 Temperature 98.5 F Pulse Rate 89 112 H 11 L Respiratory Rate 18 14 Blood Pressure 146/64 H 169/78 H Pulse Oximetry 95 96 05/26/18 00:00 05/26/18 02:00 05/26/18 04:00 Temperature 98.7 F 98.7 F Pulse Rate 98 H 107 H 112 H Respiratory Rate 18 18 Blood Pressure 166/84 H 152/68 H Pulse Oximetry 94 L 95 05/26/18 06:00 05/26/18 08:00 05/26/18 10:00 Temperature 97.3 F L Pulse Rate 101 H 95 H 100 H Respiratory Rate 11 L Blood Pressure 142/63 H Pulse Oximetry 91 L Intake & Output 05/25/18 05/26/18 05/26/18 18:59 06:59 18:59 Intake Total 700 / 700 925 / 925 Output Total 1000 / 1000 900 / 900 Balance -300 / -300 -900 / -900 925 / 925 Weight 155 lb 10.342 oz Intake: IV 700 / 700 925 / 925 NS Inj 1,000 ML @ 70 mls/hr IV. 700 / 700 525 / 525 CONT .[id number] [facility] Rx#:[id number] NS Inj 1,000 ML @ 30 mls/hr IV. 400 / 400 SIG .Q24H [facility] Rx#:[id number] Output: Urine Amount (Catheter) 1000 / 1000 900 / 900 Indwelling Urethral Catheter 1000 / 1000 900 / 900 Other: Date of Last Bowel Movement 05/24/18 05/24/18 05/24/18 # Bowel Movements 0 0 Result Diagrams: 05/27/18 02:51 05/26/18 03:48 Laboratory Results: Laboratory Results - last 24 hr 05/24/18 05/25/18 05/25/18 15:00 07:25 12:36 WBC RBC Hgb Hct MCV MCH MCHC RDW Plt Count MPV Prelim Diff (Auto) Neut % (Auto) Lymph % (Auto) Freestone % (Auto) Eos % (Auto) Baso % (Auto) Neut # (Auto) Lymph # (Auto) Freestone # (Auto) Eos # (Auto) Baso # (Auto) WBC Differential Diff Scan Differential Comment Platelet Estimate Platelet Morphology Sodium Potassium Chloride Carbon Dioxide Anion Gap BUN Creatinine Estimated GFR POC Glucose 84 Random Glucose Hemoglobin A1c 5.9 Calcium Total Bilirubin AST ALT Alkaline Phosphatase Ammonia Total Protein Albumin Urine Color Gurmeet Urine Clarity Cloudy H Urine pH 5.0 Ur Specific Isabela 1.019 Urine Protein 100 H Urine Glucose (UA) Negative Urine Ketones Negative Urine Occult Blood Large H Urine Nitrate Negative Urine Bilirubin Negative Urine Urobilinogen 4 or greater Ur Leukocyte Esterase Trace H Urine RBC 57 H Urine WBC 60 H Ur Squamous Epith Cells 3 Urine Bacteria Many H Urine Mucus Many H Micro UA Comment Culture indicated Urine Culture Comments Culture indicated Nasal Screen MRSA (PCR) 05/25/18 05/25/18 05/25/18 17:38 18:36 21:30 WBC RBC Hgb Hct MCV MCH MCHC RDW Plt Count MPV Prelim Diff (Auto) Neut % (Auto) Lymph % (Auto) Freestone % (Auto) Eos % (Auto) Baso % (Auto) Neut # (Auto) Lymph # (Auto) Freestone # (Auto) Eos # (Auto) Baso # (Auto) WBC Differential Diff Scan Differential Comment Platelet Estimate Platelet Morphology Sodium Potassium Chloride Carbon Dioxide Anion Gap BUN Creatinine Estimated GFR POC Glucose 74 87 Random Glucose Hemoglobin A1c Calcium Total Bilirubin AST ALT Alkaline Phosphatase Ammonia Total Protein Albumin Urine Color Urine Clarity Urine pH Ur Specific Isabela Urine Protein Urine Glucose (UA) Urine Ketones Urine Occult Blood Urine Nitrate Urine Bilirubin Urine Urobilinogen Ur Leukocyte Esterase Urine RBC Urine WBC Ur Squamous Epith Cells Urine Bacteria Urine Mucus Micro UA Comment Urine Culture Comments Nasal Screen MRSA (PCR) Not detected 05/26/18 05/26/18 05/26/18 00:20 00:35 00:55 WBC RBC Hgb Hct MCV MCH MCHC RDW Plt Count MPV Prelim Diff (Auto) Neut % (Auto) Lymph % (Auto) Freestone % (Auto) Eos % (Auto) Baso % (Auto) Neut # (Auto) Lymph # (Auto) Freestone # (Auto) Eos # (Auto) Baso # (Auto) WBC Differential Diff Scan Differential Comment Platelet Estimate Platelet Morphology Sodium Potassium Chloride Carbon Dioxide Anion Gap BUN Creatinine Estimated GFR POC Glucose 62 L 98 130 H Random Glucose Hemoglobin A1c Calcium Total Bilirubin AST ALT Alkaline Phosphatase Ammonia Total Protein Albumin Urine Color Urine Clarity Urine pH Ur Specific Isabela Urine Protein Urine Glucose (UA) Urine Ketones Urine Occult Blood Urine Nitrate Urine Bilirubin Urine Urobilinogen Ur Leukocyte Esterase Urine RBC Urine WBC Ur Squamous Epith Cells Urine Bacteria Urine Mucus Micro UA Comment Urine Culture Comments Nasal Screen MRSA (PCR) 05/26/18 05/26/18 05/26/18 03:18 03:48 03:48 WBC 7.5 RBC 3.82 L Hgb 13.7 Hct 40.1 MCV 105.0 H MCH 35.8 H MCHC 34.1 RDW 15.1 Plt Count 24 L D MPV 9.5 Prelim Diff (Auto) Slide review pending Neut % (Auto) 84.1 H Lymph % (Auto) 1.7 L Freestone % (Auto) 14.0 H Eos % (Auto) 0.2 Baso % (Auto) 0.0 Neut # (Auto) 6.3 Lymph # (Auto) 0.1 L Freestone # (Auto) 1.0 H Eos # (Auto) 0.0 Baso # (Auto) 0.0 WBC Differential . Diff Scan Auto diff confirmed Differential Comment . Platelet Estimate Low L Platelet Morphology Enlarged H Sodium 134 L Potassium 4.7 Chloride 98 Carbon Dioxide 25.4 Anion Gap 11 BUN 42 H Creatinine 0.84 Estimated GFR 89 POC Glucose 89 Random Glucose 101 Hemoglobin A1c Calcium 8.2 L Total Bilirubin 5.3 H AST 160 H ALT 260 H Alkaline Phosphatase 137 H Ammonia Total Protein 5.5 L Albumin 2.2 L Urine Color Urine Clarity Urine pH Ur Specific Isabela Urine Protein Urine Glucose (UA) Urine Ketones Urine Occult Blood Urine Nitrate Urine Bilirubin Urine Urobilinogen Ur Leukocyte Esterase Urine RBC Urine WBC Ur Squamous Epith Cells Urine Bacteria Urine Mucus Micro UA Comment Urine Culture Comments Nasal Screen MRSA (PCR) 05/26/18 05/26/18 03:48 05:56 WBC RBC Hgb Hct MCV MCH MCHC RDW Plt Count MPV Prelim Diff (Auto) Neut % (Auto) Lymph % (Auto) Freestone % (Auto) Eos % (Auto) Baso % (Auto) Neut # (Auto) Lymph # (Auto) Freestone # (Auto) Eos # (Auto) Baso # (Auto) WBC Differential Diff Scan Differential Comment Platelet Estimate Platelet Morphology Sodium Potassium Chloride Carbon Dioxide Anion Gap BUN Creatinine Estimated GFR POC Glucose 105 Random Glucose Hemoglobin A1c Calcium Total Bilirubin AST ALT Alkaline Phosphatase Ammonia 18 Total Protein Albumin Urine Color Urine Clarity Urine pH Ur Specific Isabela Urine Protein Urine Glucose (UA) Urine Ketones Urine Occult Blood Urine Nitrate Urine Bilirubin Urine Urobilinogen Ur Leukocyte Esterase Urine RBC Urine WBC Ur Squamous Epith Cells Urine Bacteria Urine Mucus Micro UA Comment Urine Culture Comments Nasal Screen MRSA (PCR) Culture Results: Microbiology 05/24/18 15:00 Urine Culture - Final Clean Catch Urine Escherichia coli Imaging Studies: Impressions Abdomen/Pelvis CT 05/25/18 00:00 CONCLUSION: 1. Post ablation changes with increased density seen throughout the posterior segment of the right lobe of liver. 2. Distended gallbladder. 3. Colonic diverticula without inflammatory change. 4. Air seen within the urinary bladder lumen. There also appears to be some debris within the urinary bladder. Head MRI 05/25/18 00:00 CONCLUSION: 1. Numerous small peripheral areas of signal are not seen throughout the diffusion weighted images consistent with widespread peripheral areas of infarction involving both cerebral hemispheres and scattered in the cerebellum. 2. Small area of signal abnormality within the left thalamus likely from prior hemorrhage. 3. Multiple focal areas of demyelination likely from small vessel ischemic change. Medications: Active Medications Generic Name Dose Route Start Last Admin Trade Name Freq PRN Reason Stop Dose Admin Amlodipine Besylate 5 mg 05/23/18 16:45 05/26/18 10:51 Norvasc PO Not Given DAILY [facility] Dexamethasone Sodium Phosphate 4 mg 05/25/18 21:00 05/26/18 10:51 Decadron Inj IV.PUSH 4 mg TID [facility] Administration Dextrose 50 ml 05/26/18 00:47 05/26/18 01:01 D50w Vial IV.PUSH 25 ml UNSCH PRN Administration PER HYPOGLYCEMIA PROTOCOL Finasteride 5 mg 05/22/18 09:00 08/28/18 10:51 Proscar PO Not Given DAILY [facility] Dextrose/Sodium Chloride 1,000 mls @ 70 mls/hr 05/26/18 00:46 05/26/18 01:05 D5w/1/2 Ns Inj IV.CONT 70 mls/hr .[id number] [facility] Administration Lactulose 30 ml 05/22/18 09:00 05/26/18 10:51 Lactulose Liq PO Not Given DAILY [facility] Lisinopril 10 mg 05/22/18 09:00 05/26/18 10:51 Prinivil PO Not Given DAILY [facility] Morphine Sulfate 2 mg 05/25/18 16:28 05/26/18 10:50 Morphine Inj IV.PUSH 2 mg Q4H PRN Administration PAIN SCALE 6 TO 10 Oxycodone HCl 5 mg 05/21/18 16:27 05/23/18 05:27 Roxicodone PO 5 mg Q4H PRN Administration PAIN SCALE 1 TO 5 Objective Remarks: GENERAL: Older male resting in bed currently attempting to change positions. SKIN: Pale, warm and dry. HEAD: Normocephalic. EYES: No scleral icterus. No injection or drainage. NECK: Supple, trachea midline. CARDIOVASCULAR: Regular rate and rhythm. Occasional PVCs noted on monitor tech. RESPIRATORY: Posterior breath sounds clear, equal bilaterally. No accessory muscle use. GASTROINTESTINAL: Abdomen soft, non-tender, nondistended. : Graham catheter with gurmeet colored urine and several clots noted in tubing EXTREMITIES: No cyanosis, or edema. Right groin has only small bruise from previous embolization. MUSCULOSKELETAL: Adequate muscle tone. NEUROLOGICAL: Patient lethargic, confused. Answering simple questions. Assessment/Plan - Plan This is a 72-year-old male patient with hepatocellular carcinoma. He is status post transarterial chemoembolization on 05/12/2018. The patient was scheduled for discharge yesterday 05/24/2018 when he had a mental status change and staff noticed confusion. CT brain did not show any acute finding. Neurology is now following. Plan: 1. Hepatocellular carcinoma, status post transarterial chemoembolization. Liver enzymes mildly improved. Ammonia level normal. 2. MRI brain shows widespread peripheral areas of infarction involving both cerebral hemispheres and in the cerebellum. Patient has small area of signal abnormality within the left thalamus likely from prior hemorrhage. I discussed these results with the at bedside. Neurology following. 3. Patient noted to have some clots in Graham catheter bag. In lieu of his decreasing platelet count of 24,000 we will transfuse 1 unit platelets today. - Attending Statement The exam, history, and the medical decision-making described in the above note were completed with the assistance of the mid-level provider. I reviewed and agree with the findings presented. I attest that I had a [id number] encounter with the patient on the same day, and personally performed and documented my assessment and findings in the medical record. Patient is more awake and start talking a little bit MRI of the brain is consistent with CVA. Patient is not a candidate for anticoagulation due to the thrombocytopenia. Status post ablation of the hepatocellular carcinoma. Continue to monitor closely.
[2018-05-26] MEDS ORDERED: Sodium Chlor 0.9% Inj 250 ML IV.SIG SCH (15:00)
--- NOTE | 2018-05-26 17:05 | P.PN ---
Subjective Interval history: This is a pleasant 72 y/o Male with Hepatocellular Carcinoma, who had Transarterial Chemoembolization on 05/12/18 status post Transpleural Liver Biopsy and Liver cryoablation, was placed a Right chest tube that then was removed and clear for discharge by Interventional Radiology, the patient developed Uncontrolled Hypertension and Hyperkalemia for this reason his discharged was held, on the day of discharge he developed acute mental changes, transferred to Intensive Care unit and consulted Neurology specialist Discussed with Neurology specialist unable to give Aspirin yesterday due to severe Thrombocytopenia, has Aphasia with probable Acute Ischemic Stroke, he has CT neck showing moderate to severe carotid stenosis, consulted Vascular specialist, CTA brain negative, awaiting for MRI brain, seen by seed specialist due to elevated Troponin level, with diagnosis NSTEMI, permissive Hypertension. 05/26: Stable seen in his bedroom in the presence of nurse improving slowly his mental condition, passed swallow test started on diet, and also will get Aphasia evaluation, no nausea, vomit or diarrhea, Neurology specialist and Cardiology following. Physical Exam Vital signs: Vital Signs 05/25/18 18:00 05/25/18 18:10 05/25/18 20:00 Temperature 98.5 F Pulse Rate 89 89 112 H Respiratory Rate 18 14 Blood Pressure 146/64 H 169/78 H Pulse Oximetry 95 96 05/25/18 22:00 05/26/18 00:00 05/26/18 02:00 Temperature 98.7 F Pulse Rate 11 L 98 H 107 H Respiratory Rate 18 Blood Pressure 166/84 H Pulse Oximetry 94 L 05/26/18 04:00 05/26/18 06:00 05/26/18 08:00 Temperature 98.7 F 97.3 F L Pulse Rate 112 H 101 H 95 H Respiratory Rate 18 11 L Blood Pressure 152/68 H 142/63 H Pulse Oximetry 95 91 L 05/26/18 10:00 05/26/18 12:00 05/26/18 14:00 Temperature 97.7 F Pulse Rate 100 H 102 H 90 Respiratory Rate 20 Blood Pressure 148/73 H Pulse Oximetry 97 05/26/18 16:00 05/26/18 16:03 05/26/18 16:17 Temperature 98 F 98 F 97.8 F Pulse Rate 95 H 95 H 87 Respiratory Rate 17 17 11 L Blood Pressure 142/66 H 142/66 H 142/66 H Pulse Oximetry 93 L 93 L 94 L Intake & Output 05/25/18 05/26/18 05/26/18 18:59 06:59 18:59 Intake Total 700 / 700 2189 / 2189 Output Total 1000 / 1000 900 / 900 Balance -300 / -300 -900 / -900 2188 / 218 Weight 70.6 kg Intake: IV 700 / 700 1925 / 1925 D5W/1/2 NS Inj 1,000 ML @ 70 1000 / 1000 mls/hr IV.CONT .[id number] [facility] Rx# :[id number] NS Inj 1,000 ML @ 70 mls/hr IV. 700 / 700 525 / 525 CONT .[id number] [facility] Rx#:[id number] NS Inj 1,000 ML @ 30 mls/hr IV. 400 / 400 SIG .Q24H [facility] Rx#:[id number] Intake (Blood Product) Amt 264 / 264 Plt Pheresis A Leukoreduced 264 / 264 Unit [id number] Output: Urine Amount (Catheter) 1000 / 1000 900 / 900 Indwelling Urethral Catheter 1000 / 1000 900 / 900 Other: Date of Last Bowel Movement 05/24/18 05/24/18 05/24/18 # Bowel Movements 0 0 Narrative: GENERAL: Well Developed, unable to give information. SKIN: Focused skin assessment warm/dry. HEAD: Atraumatic. Normocephalic. EYES: Pupils equal and round. No scleral icterus. ENT: No nasal bleeding or discharge. Mucous membranes pink and moist. NECK: Trachea midline. No JVD. Supple. CARDIOVASCULAR: systolic heart Murmur, PVCs heard. RESPIRATORY: No accessory muscle use. clear to auscultation bilateral. GASTROINTESTINAL: Abdomen soft, diffusely tender, moderately distended. MUSCULOSKELETAL: No obvious deformities. No clubbing. No cyanosis. No edema. NEUROLOGICAL: Awake, but unable to speak, just one work that he repeats, and has right Hemiparesis. PSYCHIATRIC: unable to examine - Urinary Catheter Management Straight Cath placed during this visit: yes, but has since been removed by the nurse Reason for continuing: Decision to DC catheter Insertion date: 05/22/18 Insertion time: 04:00 Removal date: 05/22/18 Removal time: 04:20 Indwelling Urethral Catheter Cath placed during this visit: yes Reason for continuing: Other continuation reason Insertion date: 05/24/18 Insertion time: 18:45 Results - Labs CBC & Chem 7: 05/26/18 03:48 05/26/18 03:48 Laboratory Results - last 24 hr 05/25/18 05/25/18 05/25/18 07:25 17:38 18:36 WBC RBC Hgb Hct MCV MCH MCHC RDW Plt Count MPV Prelim Diff (Auto) Neut % (Auto) Lymph % (Auto) [place] % (Auto) Eos % (Auto) Baso % (Auto) Neut # (Auto) Lymph # (Auto) [place] # (Auto) Eos # (Auto) Baso # (Auto) WBC Differential Diff Scan Differential Comment Platelet Estimate Platelet Morphology Sodium Potassium Chloride Carbon Dioxide Anion Gap BUN Creatinine Estimated GFR POC Glucose 74 87 Random Glucose Hemoglobin A1c 5.9 Calcium Total Bilirubin AST ALT Alkaline Phosphatase Ammonia Total Protein Albumin Nasal Screen MRSA (PCR) Bld Prod Order Comment 05/25/18 05/26/18 05/26/18 21:30 00:20 00:35 WBC RBC Hgb Hct MCV MCH MCHC RDW Plt Count MPV Prelim Diff (Auto) Neut % (Auto) Lymph % (Auto) [place] % (Auto) Eos % (Auto) Baso % (Auto) Neut # (Auto) Lymph # (Auto) [place] # (Auto) Eos # (Auto) Baso # (Auto) WBC Differential Diff Scan Differential Comment Platelet Estimate Platelet Morphology Sodium Potassium Chloride Carbon Dioxide Anion Gap BUN Creatinine Estimated GFR POC Glucose 62 L 98 Random Glucose Hemoglobin A1c Calcium Total Bilirubin AST ALT Alkaline Phosphatase Ammonia Total Protein Albumin Nasal Screen MRSA (PCR) Not detected Bld Prod Order Comment 05/26/18 05/26/18 05/26/18 00:55 03:18 03:48 WBC 7.5 RBC 3.82 L Hgb 13.7 Hct 40.1 MCV 105.0 H MCH 35.8 H MCHC 34.1 RDW 15.1 Plt Count 24 L D MPV 9.5 Prelim Diff (Auto) Slide review pending Neut % (Auto) 84.1 H Lymph % (Auto) 1.7 L [place] % (Auto) 14.0 H Eos % (Auto) 0.2 Baso % (Auto) 0.0 Neut # (Auto) 6.3 Lymph # (Auto) 0.1 L [place] # (Auto) 1.0 H Eos # (Auto) 0.0 Baso # (Auto) 0.0 WBC Differential . Diff Scan Auto diff confirmed Differential Comment . Platelet Estimate Low L Platelet Morphology Enlarged H Sodium Potassium Chloride Carbon Dioxide Anion Gap BUN Creatinine Estimated GFR POC Glucose 130 H 89 Random Glucose Hemoglobin A1c Calcium Total Bilirubin AST ALT Alkaline Phosphatase Ammonia Total Protein Albumin Nasal Screen MRSA (PCR) Bld Prod Order Comment 05/26/18 05/26/18 05/26/18 03:48 03:48 05:56 WBC RBC Hgb Hct MCV MCH MCHC RDW Plt Count MPV Prelim Diff (Auto) Neut % (Auto) Lymph % (Auto) [place] % (Auto) Eos % (Auto) Baso % (Auto) Neut # (Auto) Lymph # (Auto) [place] # (Auto) Eos # (Auto) Baso # (Auto) WBC Differential Diff Scan Differential Comment Platelet Estimate Platelet Morphology Sodium 134 L Potassium 4.7 Chloride 98 Carbon Dioxide 25.4 Anion Gap 11 BUN 42 H Creatinine 0.84 Estimated GFR 89 POC Glucose 105 Random Glucose 101 Hemoglobin A1c Calcium 8.2 L Total Bilirubin 5.3 H AST 160 H ALT 260 H Alkaline Phosphatase 137 H Ammonia 18 Total Protein 5.5 L Albumin 2.2 L Nasal Screen MRSA (PCR) Bld Prod Order Comment 05/26/18 14:43 WBC RBC Hgb Hct MCV MCH MCHC RDW Plt Count MPV Prelim Diff (Auto) Neut % (Auto) Lymph % (Auto) [place] % (Auto) Eos % (Auto) Baso % (Auto) Neut # (Auto) Lymph # (Auto) [place] # (Auto) Eos # (Auto) Baso # (Auto) WBC Differential Diff Scan Differential Comment Platelet Estimate Platelet Morphology Sodium Potassium Chloride Carbon Dioxide Anion Gap BUN Creatinine Estimated GFR POC Glucose Random Glucose Hemoglobin A1c Calcium Total Bilirubin AST ALT Alkaline Phosphatase Ammonia Total Protein Albumin Nasal Screen MRSA (PCR) Bld Prod Order Comment Microbiology 05/24/18 15:00 Clean Catch Urine Urine Culture - Final Escherichia coli - Imaging Impressions Abdomen/Pelvis CT 05/25/18 00:00 CONCLUSION: 1. Post ablation changes with increased density seen throughout the posterior segment of the right lobe of liver. 2. Distended gallbladder. 3. Colonic diverticula without inflammatory change. 4. Air seen within the urinary bladder lumen. There also appears to be some debris within the urinary bladder. Head MRI 05/25/18 00:00 CONCLUSION: 1. Numerous small peripheral areas of signal are not seen throughout the diffusion weighted images consistent with widespread peripheral areas of infarction involving both cerebral hemispheres and scattered in the cerebellum. 2. Small area of signal abnormality within the left thalamus likely from prior hemorrhage. 3. Multiple focal areas of demyelination likely from small vessel ischemic change. - Procedures Liver biopsy and Cryoablation of the Liver tumor, due to technical difficulty to see the mass was necessary to perform transpleural approach and left right chest tube to correct Hydropneumothorax. Assessment and Plan - Assessment (1) Arthritis Code(s): M19.90 - Unspecified osteoarthritis, unspecified site Status: Acute (2) Cataract Code(s): H26.9 - Unspecified cataract Status: Acute (3) Cirrhosis Code(s): K74.60 - Unspecified cirrhosis of liver Status: Acute (4) H/O rotator cuff surgery Code(s): Z98.890 - Other specified postprocedural states Status: Acute (5) HTN (hypertension) Code(s): I10 - Essential (primary) hypertension Status: Acute (6) PVD (peripheral vascular disease) Code(s): I73.9 - Peripheral vascular disease, unspecified Status: Acute - Plan 1. Hepatocellular Carcinoma sent by marketing production specialist Doctor Mark Anthony Live for Interventional Radiology management he has high risk for Biopsy, had today chemoembolization of tumors recently today brought in for Liver biopsy and Cryoablation of the Liver tumor, due to technical difficulty to see the mass was necessary to perform transpleural approach and left right chest tube to correct Hydropneumothorax. Chest tube removed this morning, improving on new CXR. okay from IR specialist for discharge. 2. Cirrhosis stable/Alcoholic Hepatitis 3. . Hypertension Uncontrolled at this time Permissive Hypertension 4. Acute ischemic Stroke discussed with doctor Finley initially, then with Doctor Tan, unable to give Aspirin due to severe Thrombocytopenia, has Aphasia with probable Acute Ischemic Stroke, he has CT neck showing moderate to severe carotid stenosis, consulted Vascular specialist, CTA brain negative, awaiting for MRI brain, seen by seed specialist due to elevated Troponin level, with diagnosis NSTEMI, permissive Hypertension allowed, discussed with nurse. PT/OT and Speech Therapy passed swallow test and asked for Aphasia evaluation. 5. Carotid Stenosis Vascular surgery consult 6. NSTEMI Cardiology following. 7. PAD by history Continue intensive Care Management. DVT prophylaxis SCDs. Code Status: Full code. Discussed Condition With: Patient and Nurse. Discharge Planning: Once cleared by specialists.
--- NOTE | 2018-05-26 17:19 | ECHRPT ---
Indication: CVA/TIA CONCLUSIONS Moderate concentric left ventricular hypertrophy. The left ventricular systolic function is normal with an estimated ejection fraction in the range of 60-65%. Doppler parameters are consistent with impaired left ventricular relaxtion (grade 1 diastolic dysfun ction). Trace mitral valve regurgitation. There is mild tricuspid valve regurgitation. BP: / HR: Rhythm: Sinus MEASUREMENTS (Male / Female) Normal Values Technical Quality:Fair 2D ECHO LV Diastolic Diameter PLAX 3.3 cm 4.2 - 5.9 / 3.9 - 5.3 cm LV Systolic Diameter PLAX 2.5 cm IVS Diastolic Thickness 1.4 cm 0.6 - 1.0 / 0.6 - 0.9 cm LVPW Diastolic Thickness 1.4 cm 0.6 - 1.0 / 0.6 - 0.9 cm LV Relative Wall Thickness 0.8 LVOT Diameter 1.9 cm Aortic Root Diameter 2.3 cm LA Systolic Diameter LX 2.3 cm 3.0 - 4.0 / 2.7 - 3.8 cm DOPPLER AV Peak Velocity 165.7 cm/s AV Peak Gradient 11.0 mmHg AV Mean Gradient 6.3 mmHg AV Velocity Time Integral 31.6 cm LVOT Peak Velocity 82.0 cm/s LVOT Peak Gradient 2.7 mmHg LVOT Velocity Time Integral 14.9 cm AV Area Cont Eq vti 1.3 cm AV Area Cont Eq pk 1.4 cm Mitral E Point Velocity 86.9 cm/s Mitral A Point Velocity 134.0 cm/s Mitral E to A Ratio 0.6 LV E' Lateral Velocity 7.2 cm/s Mitral E to LV E' Lateral Ratio 12.1 LV E' Septal Velocity 5.3 cm/s Mitral E to LV E' Septal Ratio 16.5 TR Peak Velocity 266.0 cm/s TR Peak Gradient 28.3 mmHg Right Atrial Pressure 10.0 mmHg Pulmonary Artery Systolic Pressu 38.3 mmHg Right Ventricular Systolic Press 38.3 mmHg PV Peak Velocity 87.2 cm/s PV Peak Gradient 3.0 mmHg FINDINGS LEFT VENTRICLE Normal left ventricular size. Moderate concentric left ventricular hypertrophy. The left ventricular systolic function is normal with an estimated ejection fraction in the range of 60-65%. Doppler parameters are consistent with impaired left ventricular relaxtion (grade 1 diastolic dysfun ction). RIGHT VENTRICLE Normal right ventricular size and systolic function. LEFT ATRIUM The left atrial size is normal. RIGHT ATRIUM The right atrial size is normal. ATRIAL SEPTUM The interatrial septum not well visualized. AORTA The aortic root and proximal ascending aorta are not well visualized. MITRAL VALVE Structurally normal mitral valve. No mitral valve stenosis. Trace mitral valve regurgitation. Moderate mitral annular calcification. AORTIC VALVE Aortic valve sclerosis is present. No aortic valve regurgitation. No aortic valve stenosis. TRICUSPID VALVE Structurally normal tricuspid valve. There is mild tricuspid valve regurgitation. The estimated pulmonary arterial pressure is 38.3 mmHg. PULMONARY VALVE The pulmonary valve is not well visualized. VESSELS The inferior vena cava was not well visualized. PERICARDIUM No pericardial effusion. Miguel Javed DO (Electronically Signed) Final Date:26 May 2018 17:18
[2018-05-27 03:19] LABS: Hematocrit 36.8 % (39.0-51.0); Hemoglobin 12.7 gm/dL (13.0-17.0); Mean Corpuscular HGB Conc 34.6 % (32.0-36.0); Mean Corpuscular Hemoglobin 36.4 pg (27.0-34.0); Mean Corpuscular Volume 105.2 fL (80.0-100.0); Mean Platelet Volume 8.8 fL (7.0-11.0); Platelet Count 41 th/mm3 (150-450); Red Cell Distribution Width 15.4 % (11.6-17.2)
[2018-05-27 04:07] LABS: Lymphocytes 2 % (9-44); Platelet Morphology Normal (Normal)
[2018-05-27] MEDS: Dextrose 5%/NaCl 0.45% Inj 1,000 ML IV.CONT SCH ×2 (06:37→21:35)
--- NOTE | 2018-05-27 08:59 | P.PN ---
Subjective Interval history: This is a pleasant 72 y/o Male with Hepatocellular Carcinoma, who had Transarterial Chemoembolization on 05/12/18 status post Transpleural Liver Biopsy and Liver cryoablation, was placed a Right chest tube that then was removed and clear for discharge by Interventional Radiology, the patient developed Uncontrolled Hypertension and Hyperkalemia for this reason his discharged was held, on the day of discharge he developed acute mental changes, transferred to Intensive Care unit and consulted Neurology specialist Discussed with Neurology specialist unable to give Aspirin yesterday due to severe Thrombocytopenia, has Aphasia with probable Acute Ischemic Stroke, he has CT neck showing moderate to severe carotid stenosis, consulted Vascular specialist, CTA brain negative, awaiting for MRI brain, seen by patient centered care specialist due to elevated Troponin level, with diagnosis NSTEMI, permissive Hypertension. 05/26: Stable seen in his bedroom in the presence of nurse improving slowly his mental condition, passed swallow test started on diet, and also will get Aphasia evaluation, Neurology specialist and Cardiology following. 05/27: No acute distress, in his bedroom, did not wanted to eat his breakfast, at this time able to speak in complete sentences but continue, hesitate and find the right words to say something, no slurred speech improving condition. No nausea, vomit or Diarrhea. Physical Exam Vital signs: Vital Signs 05/26/18 10:00 05/26/18 12:00 05/26/18 14:00 Temperature 97.7 F Pulse Rate 100 H 102 H 90 Respiratory Rate 20 Blood Pressure 148/73 H Pulse Oximetry 97 05/26/18 16:00 05/26/18 16:03 05/26/18 16:17 Temperature 98 F 98 F 97.8 F Pulse Rate 95 H 95 H 87 Respiratory Rate 17 17 11 L Blood Pressure 142/66 H 142/66 H 142/66 H Pulse Oximetry 93 L 93 L 94 L 05/26/18 18:00 05/26/18 20:00 05/26/18 22:00 Temperature 98.2 F Pulse Rate 80 81 92 H Respiratory Rate 20 Blood Pressure 121/58 L Pulse Oximetry 95 05/27/18 00:00 05/27/18 02:00 05/27/18 04:00 Temperature 98.4 F 98.2 F Pulse Rate 92 H 92 H 100 H Respiratory Rate 21 23 Blood Pressure 131/57 L 138/63 Pulse Oximetry 93 L 94 L 05/27/18 06:00 Temperature Pulse Rate 82 Respiratory Rate Blood Pressure Pulse Oximetry Intake & Output 05/26/18 05/27/18 05/27/18 18:59 06:59 18:59 Intake Total 2309 / 2309 1000 / 1000 Output Total 950 / 950 650 / 650 Balance 1359 / 1359 350 / 350 Weight 77.4 kg Intake: IV 1925 / 1925 1000 / 1000 D5W/1/2 NS Inj 1,000 ML @ 70 1000 / 1000 1000 / 1000 mls/hr IV.CONT .[id number] [facility] Rx# :[id number] NS Inj 1,000 ML @ 70 mls/hr IV. 525 / 525 CONT .[id number] [facility] Rx#:[id number] NS Inj 1,000 ML @ 30 mls/hr IV. 400 / 400 SIG .Q24H [facility] Rx#:[id number] Oral 120 / 120 Intake (Blood Product) Amt 264 / 264 Plt Pheresis A Leukoreduced 264 / 264 Unit [id number] Output: Urine Amount (Catheter) 950 / 950 650 / 650 Indwelling Urethral Catheter 950 / 950 650 / 650 Other: Date of Last Bowel Movement 05/24/18 05/24/18 # Bowel Movements 0 Narrative: GENERAL: Well Developed, no acute distress. SKIN: Focused skin assessment warm/dry. HEAD: Atraumatic. Normocephalic. EYES: Pupils equal and round. No scleral icterus. ENT: No nasal bleeding or discharge. Mucous membranes pink and moist. NECK: Trachea midline. No JVD. Supple. CARDIOVASCULAR: systolic heart Murmur, PVCs heard. RESPIRATORY: No accessory muscle use. clear to auscultation bilateral. GASTROINTESTINAL: Abdomen soft, diffusely tender, moderately distended. MUSCULOSKELETAL: No obvious deformities. No clubbing. No cyanosis. No edema. NEUROLOGICAL: Alert and oriented, talking in full sentences. moves four extremities, slow on the right side. PSYCHIATRIC: good affect. - Urinary Catheter Management Straight Cath placed during this visit: yes, but has since been removed by the nurse Reason for continuing: Decision to DC catheter Insertion date: 05/22/18 Insertion time: 04:00 Removal date: 05/22/18 Removal time: 04:20 Indwelling Urethral Catheter Cath placed during this visit: yes Reason for continuing: Other continuation reason Insertion date: 05/24/18 Insertion time: 18:45 Results - Labs CBC & Chem 7: 05/27/18 02:51 05/26/18 03:48 Laboratory Results - last 24 hr 05/26/18 05/26/18 05/26/18 14:43 17:38 21:08 WBC RBC Hgb Hct MCV MCH MCHC RDW Plt Count MPV Prelim Diff (Auto) WBC Differential Seg Neuts % (Manual) Band Neuts % (Manual) Lymphocytes % (Manual) Abs Neuts (Manual) Differential Comment Platelet Estimate Platelet Morphology POC Glucose 153 H 109 Bld Prod Order Comment 05/27/18 02:51 WBC 4.0 RBC 3.50 L Hgb 12.7 L Hct 36.8 L MCV 105.2 H MCH 36.4 H MCHC 34.6 RDW 15.4 Plt Count 41 L D MPV 8.8 Prelim Diff (Auto) Manual diff required WBC Differential Manual diff final Seg Neuts % (Manual) 94 H Band Neuts % (Manual) 4 Lymphocytes % (Manual) 2 L Abs Neuts (Manual) 3.9 Differential Comment . Platelet Estimate Low L Platelet Morphology Normal POC Glucose Bld Prod Order Comment Microbiology 05/24/18 15:00 Clean Catch Urine Urine Culture - Final Escherichia coli - Procedures Liver biopsy and Cryoablation of the Liver tumor, due to technical difficulty to see the mass was necessary to perform transpleural approach and left right chest tube to correct Hydropneumothorax. Assessment and Plan - Assessment (1) Arthritis Code(s): M19.90 - Unspecified osteoarthritis, unspecified site Status: Acute (2) Cataract Code(s): H26.9 - Unspecified cataract Status: Acute (3) Cirrhosis Code(s): K74.60 - Unspecified cirrhosis of liver Status: Acute (4) H/O rotator cuff surgery Code(s): Z98.890 - Other specified postprocedural states Status: Acute (5) HTN (hypertension) Code(s): I10 - Essential (primary) hypertension Status: Acute (6) PVD (peripheral vascular disease) Code(s): I73.9 - Peripheral vascular disease, unspecified Status: Acute - Plan 1. Hepatocellular Carcinoma sent by lab specialist Doctor Mark Anthony Live for Interventional Radiology management he has high risk for Biopsy, had today chemoembolization of tumors recently today brought in for Liver biopsy and Cryoablation of the Liver tumor, due to technical difficulty to see the mass was necessary to perform transpleural approach and left right chest tube to correct Hydropneumothorax. Chest tube removed this morning, improving on new CXR. okay from IR specialist for discharge. 2. Cirrhosis stable/Alcoholic Hepatitis 3. . Hypertension Controlled. 4. Acute ischemic Stroke discussed with doctor Tushar initially, then with Doctor Dominick, unable to give Aspirin due to severe Thrombocytopenia, has Aphasia with probable Acute Ischemic Stroke, he has CT neck showing moderate to severe carotid stenosis, consulted Vascular specialist, CTA brain negative, awaiting for MRI brain, seen by patient centered care specialist due to elevated Troponin level, with diagnosis NSTEMI, permissive Hypertension allowed, discussed with nurse. PT/OT and Speech Therapy passed swallow test and asked for Aphasia evaluation. today improved Aphasia. 5. Carotid Stenosis Vascular surgery consult 6. NSTEMI Cardiology following. 7. PAD by history 8. severe Thrombocytopenia given Transfusion by field property loss specialist. yesterday 24 to 41 today. Stable to transfer to Med Surg. DVT prophylaxis SCDs. Code Status: Full Code. Discussed Condition With: Patient and nurse Miss March. Discharge Planning: Once cleared by specialists.
[2018-05-27] MEDS: Lisinopril 10 MG Tablet PO SCH (09:17)
[2018-05-27] MEDS: Finasteride 5 MG Tablet PO SCH (09:17)
[2018-05-27] MEDS: amLODIPine 5 MG Tablet PO SCH (09:17)
--- NOTE | 2018-05-27 15:47 | P.PN ---
Subjective Interval history: speech improved still more expressive aphasia and right side weakness. Physical Exam Vital signs: Vital Signs 05/26/18 16:00 05/26/18 16:03 05/26/18 16:17 Temperature 98 F 98 F 97.8 F Pulse Rate 95 H 95 H 87 Respiratory Rate 17 17 11 L Blood Pressure 142/66 H 142/66 H 142/66 H Pulse Oximetry 93 L 93 L 94 L 05/26/18 18:00 05/26/18 20:00 05/26/18 22:00 Temperature 98.2 F Pulse Rate 80 81 92 H Respiratory Rate 20 Blood Pressure 121/58 L Pulse Oximetry 95 05/27/18 00:00 05/27/18 02:00 05/27/18 04:00 Temperature 98.4 F 98.2 F Pulse Rate 92 H 92 H 100 H Respiratory Rate 21 23 Blood Pressure 131/57 L 138/63 Pulse Oximetry 93 L 94 L 05/27/18 06:00 05/27/18 08:00 05/27/18 10:00 Temperature 98.5 F Pulse Rate 82 82 94 H Respiratory Rate 22 Blood Pressure 114/58 L Pulse Oximetry 92 L 05/27/18 12:00 05/27/18 14:00 Temperature 98.4 F Pulse Rate 96 H 92 H Respiratory Rate 18 Blood Pressure 140/55 L Pulse Oximetry 96 Intake & Output 05/26/18 05/27/18 05/27/18 18:59 06:59 18:59 Intake Total 2309 / 2309 1000 / 1000 0 / 0 Output Total 950 / 950 650 / 650 Balance 1359 / 1359 350 / 350 0 / 0 Weight 77.4 kg Intake: IV 1925 / 1925 1000 / 1000 0 / 0 D5W/1/2 NS Inj 1,000 ML @ 70 1000 / 1000 1000 / 1000 mls/hr IV.CONT .[id number] [facility] Rx# :[id number] NS Inj 1,000 ML @ 70 mls/hr IV. 525 / 525 CONT .[id number] [facility] Rx#:[id number] NS Inj 1,000 ML @ 30 mls/hr IV. 400 / 400 SIG .Q24H [facility] Rx#:[id number] NS Inj 250 ML @ 15 mls/hr IV. 0 / 0 SIG ONCE [facility] Rx#:[id number] Oral 120 / 120 Intake (Blood Product) Amt 264 / 264 Plt Pheresis A Leukoreduced 264 / 264 Unit [id number] Output: Urine Amount (Catheter) 950 / 950 650 / 650 Indwelling Urethral Catheter 950 / 950 650 / 650 Other: Date of Last Bowel Movement 05/24/18 05/24/18 # Bowel Movements 0 Narrative: awake alert expressive aphasia right UE weakness drift mild leg lag-right follows commands w/d toes gait not tested. - Urinary Catheter Management Straight Cath placed during this visit: yes, but has since been removed by the nurse Reason for continuing: Decision to DC catheter Insertion date: 05/22/18 Insertion time: 04:00 Removal date: 05/22/18 Removal time: 04:20 Indwelling Urethral Catheter Cath placed during this visit: yes Reason for continuing: Other continuation reason Insertion date: 05/24/18 Insertion time: 18:45 Results - Labs CBC & Chem 7: 05/27/18 02:51 05/26/18 03:48 Laboratory Results - last 24 hr 05/26/18 05/26/18 05/26/18 10:25 14:43 17:38 WBC RBC Hgb Hct MCV MCH MCHC RDW Plt Count MPV Prelim Diff (Auto) WBC Differential Seg Neuts % (Manual) Band Neuts % (Manual) Lymphocytes % (Manual) Abs Neuts (Manual) Differential Comment Platelet Estimate Platelet Morphology POC Glucose 113 H 153 H Bld Prod Order Comment 05/26/18 05/27/18 05/27/18 21:08 02:51 09:23 WBC 4.0 RBC 3.50 L Hgb 12.7 L Hct 36.8 L MCV 105.2 H MCH 36.4 H MCHC 34.6 RDW 15.4 Plt Count 41 L D MPV 8.8 Prelim Diff (Auto) Manual diff required WBC Differential Manual diff final Seg Neuts % (Manual) 94 H Band Neuts % (Manual) 4 Lymphocytes % (Manual) 2 L Abs Neuts (Manual) 3.9 Differential Comment . Platelet Estimate Low L Platelet Morphology Normal POC Glucose 109 122 H Bld Prod Order Comment 05/27/18 12:03 WBC RBC Hgb Hct MCV MCH MCHC RDW Plt Count MPV Prelim Diff (Auto) WBC Differential Seg Neuts % (Manual) Band Neuts % (Manual) Lymphocytes % (Manual) Abs Neuts (Manual) Differential Comment Platelet Estimate Platelet Morphology POC Glucose 151 H Bld Prod Order Comment - Imaging mri c/w small acute infarct b/l. - Procedures Liver biopsy and Cryoablation of the Liver tumor, due to technical difficulty to see the mass was necessary to perform transpleural approach and left right chest tube to correct Hydropneumothorax. Assessment and Plan - Plan unable to use AC or antiplatelets due to thrombocytopenia. pt-ot-st rehab consult watch for a fib. oob chair scds dvt prevention.
--- NOTE | 2018-05-27 16:04 | P.PNONC ---
Subjective Interval history: Patient awake and alert on approach. Speech has improved. He complains of back pain and states that he is waiting to see Dr. Sarabia. Dr Shanice rosas also at the bedside. Objective Vital Signs/Intake & Output: Vital Signs 05/26/18 16:00 05/26/18 16:03 05/26/18 16:17 Temperature 98 F 98 F 97.8 F Pulse Rate 95 H 95 H 87 Respiratory Rate 17 17 11 L Blood Pressure 142/66 H 142/66 H 142/66 H Pulse Oximetry 93 L 93 L 94 L 05/26/18 18:00 05/26/18 20:00 05/26/18 22:00 Temperature 98.2 F Pulse Rate 80 81 92 H Respiratory Rate 20 Blood Pressure 121/58 L Pulse Oximetry 95 05/27/18 00:00 05/27/18 02:00 05/27/18 04:00 Temperature 98.4 F 98.2 F Pulse Rate 92 H 92 H 100 H Respiratory Rate 21 23 Blood Pressure 131/57 L 138/63 Pulse Oximetry 93 L 94 L 05/27/18 06:00 05/27/18 08:00 05/27/18 10:00 Temperature 98.5 F Pulse Rate 82 82 94 H Respiratory Rate 22 Blood Pressure 114/58 L Pulse Oximetry 92 L 05/27/18 12:00 05/27/18 14:00 Temperature 98.4 F Pulse Rate 96 H 92 H Respiratory Rate 18 Blood Pressure 140/55 L Pulse Oximetry 96 Intake & Output 05/26/18 05/27/18 05/27/18 18:59 06:59 18:59 Intake Total 2309 / 2309 1000 / 1000 0 / 0 Output Total 950 / 950 650 / 650 Balance 1359 / 1359 350 / 350 0 / 0 Weight 77.4 kg Intake: IV 1925 / 1925 1000 / 1000 0 / 0 D5W/1/2 NS Inj 1,000 ML @ 70 1000 / 1000 1000 / 1000 mls/hr IV.CONT .[id number] [facility] Rx# :[id number] NS Inj 1,000 ML @ 70 mls/hr IV. 525 / 525 CONT .[id number] [facility] Rx#:[id number] NS Inj 1,000 ML @ 30 mls/hr IV. 400 / 400 SIG .Q24H [facility] Rx#:[id number] NS Inj 250 ML @ 15 mls/hr IV. 0 / 0 SIG ONCE [facility] Rx#:[id number] Oral 120 / 120 Intake (Blood Product) Amt 264 / 264 Plt Pheresis A Leukoreduced 264 / 264 Unit [id number] Output: Urine Amount (Catheter) 950 / 950 650 / 650 Indwelling Urethral Catheter 950 / 950 650 / 650 Other: Date of Last Bowel Movement 05/24/18 05/24/18 # Bowel Movements 0 Result Diagrams: 05/27/18 02:51 05/26/18 03:48 Laboratory Results: Laboratory Results - last 24 hr 05/26/18 05/26/18 05/26/18 10:25 14:43 17:38 WBC RBC Hgb Hct MCV MCH MCHC RDW Plt Count MPV Prelim Diff (Auto) WBC Differential Seg Neuts % (Manual) Band Neuts % (Manual) Lymphocytes % (Manual) Abs Neuts (Manual) Differential Comment Platelet Estimate Platelet Morphology POC Glucose 113 H 153 H Bld Prod Order Comment 05/26/18 05/27/18 05/27/18 21:08 02:51 09:23 WBC 4.0 RBC 3.50 L Hgb 12.7 L Hct 36.8 L MCV 105.2 H MCH 36.4 H MCHC 34.6 RDW 15.4 Plt Count 41 L D MPV 8.8 Prelim Diff (Auto) Manual diff required WBC Differential Manual diff final Seg Neuts % (Manual) 94 H Band Neuts % (Manual) 4 Lymphocytes % (Manual) 2 L Abs Neuts (Manual) 3.9 Differential Comment . Platelet Estimate Low L Platelet Morphology Normal POC Glucose 109 122 H Bld Prod Order Comment 05/27/18 12:03 WBC RBC Hgb Hct MCV MCH MCHC RDW Plt Count MPV Prelim Diff (Auto) WBC Differential Seg Neuts % (Manual) Band Neuts % (Manual) Lymphocytes % (Manual) Abs Neuts (Manual) Differential Comment Platelet Estimate Platelet Morphology POC Glucose 151 H Bld Prod Order Comment Culture Results: Microbiology 05/24/18 15:00 Urine Culture - Final Clean Catch Urine Escherichia coli Medications: Active Medications Generic Name Dose Route Start Last Admin Trade Name Freq PRN Reason Stop Dose Admin Amlodipine Besylate 5 mg 05/23/18 16:45 05/27/18 09:17 Norvasc PO 5 mg DAILY [facility] Administration Dexamethasone Sodium Phosphate 4 mg 05/25/18 21:00 05/27/18 12:08 Decadron Inj IV.PUSH 4 mg TID [facility] Administration Dextrose 50 ml 05/26/18 00:47 05/26/18 01:01 D50w Vial IV.PUSH 25 ml UNSCH PRN Administration PER HYPOGLYCEMIA PROTOCOL Finasteride 5 mg 05/22/18 09:00 05/27/18 09:17 Proscar PO 5 mg DAILY [facility] Administration Dextrose/Sodium Chloride 1,000 mls @ 70 mls/hr 05/26/18 00:46 05/27/18 06:37 D5w/1/2 Ns Inj IV.CONT 70 mls/hr .[id number] [facility] Administration Lactulose 30 ml 05/22/18 09:00 05/27/18 09:17 Lactulose Liq PO 30 ml DAILY [facility] Administration Lisinopril 10 mg 05/22/18 09:00 05/27/18 09:17 Prinivil PO 10 mg DAILY [facility] Administration Morphine Sulfate 2 mg 05/25/18 16:28 05/26/18 10:50 Morphine Inj IV.PUSH 2 mg Q4H PRN Administration PAIN SCALE 6 TO 10 Oxycodone HCl 5 mg 05/21/18 16:27 05/23/18 05:27 Roxicodone PO 5 mg Q4H PRN Administration PAIN SCALE 1 TO 5 Objective Remarks: GENERAL: Ill appearing elderly patient, lying in bed, in no acute distress. SKIN: Warm and dry. HEAD: Normocephalic. EYES: No scleral icterus. No injection or drainage. NECK: Supple, trachea midline. No JVD or lymphadenopathy. CARDIOVASCULAR: +S1/S2 without murmurs, occasional extra systole. RESPIRATORY: Breath sounds clear, equal bilaterally. No accessory muscle use. GASTROINTESTINAL: Abdomen soft, non-tender, nondistended. EXTREMITIES: No cyanosis, or edema. MUSCULOSKELETAL: Adequate muscle tone. NEUROLOGICAL: Speech is clear. Awake, alert, and oriented x3. weakness to right arm. Moving all extremities. PSYCHIATRIC: Appropriate mood and affect; insight and judgment normal. Assessment/Plan - Plan This is a 72-year-old male patient with hepatocellular carcinoma. He is status post transarterial chemoembolization on 05/12/2018. The patient was scheduled for discharge yesterday 05/24/2018 when he had a mental status change and staff noticed confusion. CT brain did not show any acute finding. Neurology is now following. Plan: 1. Hepatocellular carcinoma, status post transarterial chemoembolization. Liver enzymes mildly improved. Ammonia level normal. 2. MRI brain shows widespread peripheral areas of infarction involving both cerebral hemispheres and in the cerebellum. Patient has small area of signal abnormality within the left thalamus likely from prior hemorrhage. Dr. Prasad, neurologist at the bedside. We have discussed inability to use anticoagulation at this time r/t low platelet counts, requiring transfusion support. 3. Urine culture + E.coli. Currenlty not on antibiotics, management per attending. 4. Continue to monitor CBC, liver enzymes and ammonia. 5. Avoid anticoagulation. - Attending Statement The exam, history, and the medical decision-making described in the above note were completed with the assistance of the mid-level provider. I reviewed and agree with the findings presented. I attest that I had a [id number] encounter with the patient on the same day, and personally performed and documented my assessment and findings in the medical record. Patient speech has improved, still has some expressive aphasia Patient is more awake and alert and talkative He is still has weakness on the right side of the body Denies any abdominal pain Platelets improved after the transfusion yesterday Liver enzymes are high but stable Case discussed with the nurse We will continue to monitor CBC and liver enzymes Because of thrombocytopenia he is not a candidate for any antiplatelets agents or anticoagulation for his stroke
[2018-05-28 04:41] LABS: Baso % (Auto) 0.1 % (0.0-2.0); Hematocrit 38.6 % (39.0-51.0); Lymph # (Auto) 0.1 th/mm3 (1.0-4.8); Lymph % (Auto) 2.5 % (9.0-44.0); Mean Corpuscular HGB Conc 33.7 % (32.0-36.0); Mean Corpuscular Hemoglobin 35.4 pg (27.0-34.0); Mean Corpuscular Volume 105.1 fL (80.0-100.0); Mean Platelet Volume 9.8 fL (7.0-11.0); Mono # (Auto) 0.4 th/mm3 (0.0-0.9); Mono % (Auto) 7.7 % (0.0-8.0); Neut # (Auto) 4.3 th/mm3 (1.8-7.7); Neut % (Auto) 89.7 % (16.0-70.0); Platelet Count 36 th/mm3 (150-450); Red Blood Count 3.67 mil/mm3 (4.50-5.90); Red Cell Distribution Width 14.9 % (11.6-17.2); White Blood Count 4.8 th/mm3 (4.0-11.0)
[2018-05-28 04:44] LABS: Alanine Aminotransferase 176 U/L (12-78); Anion Gap 9 meq/L (5-15); Aspartate Aminotransferase 78 U/L (15-37); Blood Urea Nitrogen 36 mg/dL (7-18); Calcium 8.1 mg/dL (8.5-10.1); Carbon Dioxide 27.5 meq/L (21.0-32.0); Chloride 97 meq/L (98-107); Glomerular Filtration Rate Greater Than 89 mL/min (>89); Glucose,Random 112 mg/dL (74-106); Potassium 4.7 meq/L (3.5-5.1); Sodium 133 meq/L (136-145)
[2018-05-28 04:46] LABS: Alkaline Phosphatase 119 U/L (45-117); Total Protein 5.2 g/dL (6.4-8.2)
[2018-05-28 08:04] LABS: Platelet Morphology Normal (Normal)
[2018-05-28] MEDS: Lisinopril 10 MG Tablet PO SCH (08:20)
[2018-05-28] MEDS: amLODIPine 5 MG Tablet PO SCH (08:20)
[2018-05-28] MEDS: Finasteride 5 MG Tablet PO SCH (08:20)
--- NOTE | 2018-05-28 09:09 | P.PN ---
Subjective Interval history: This is a pleasant 72 y/o Male with Hepatocellular Carcinoma, who had Transarterial Chemoembolization on 05/12/18 status post Transpleural Liver Biopsy and Liver cryoablation, was placed a Right chest tube that then was removed and clear for discharge by Interventional Radiology, the patient developed Uncontrolled Hypertension and Hyperkalemia for this reason his discharged was held, on the day of discharge he developed acute mental changes, transferred to Intensive Care unit and consulted Neurology specialist Discussed with Neurology specialist unable to give Aspirin yesterday due to severe Thrombocytopenia, has Aphasia with probable Acute Ischemic Stroke, he has CT neck showing moderate to severe carotid stenosis, consulted Vascular specialist, CTA brain negative, awaiting for MRI brain, seen by source water protection specialist due to elevated Troponin level, with diagnosis NSTEMI, permissive Hypertension. 05/26: Stable seen in his bedroom in the presence of nurse improving slowly his mental condition, passed swallow test started on diet, and also will get Aphasia evaluation, Neurology specialist and Cardiology following. 05/27: No acute distress, in his bedroom, did not wanted to eat his breakfast, at this time able to speak in complete sentences but continue, hesitate and find the right words to say something, no slurred speech improving condition. 05/28: Seen in his bedroom, stable working with Physical Therapy discussed with nurse Miss Jennings he is improving activity, speaking in full sentences, no Aphasia, no nausea, vomit or diarrhea, okay to move from ICU to Medical floor. Physical Exam Vital signs: Vital Signs 05/27/18 10:00 05/27/18 12:00 05/27/18 14:00 Temperature 98.4 F Pulse Rate 94 H 96 H 92 H Respiratory Rate 18 Blood Pressure 140/55 L Pulse Oximetry 96 05/27/18 16:00 05/27/18 20:00 05/28/18 00:00 Temperature 98.5 F 98.3 F 98.4 F Pulse Rate 92 H 84 82 Respiratory Rate 25 H 20 18 Blood Pressure 144/68 H 029/57 L 137/61 Pulse Oximetry 95 94 L 94 L 05/28/18 04:00 05/28/18 08:00 Temperature 98.2 F 98.0 F Pulse Rate 85 85 Respiratory Rate 19 21 Blood Pressure 124/58 L 120/58 L Pulse Oximetry 95 94 L Intake & Output 05/27/18 05/28/18 05/28/18 18:59 06:59 18:59 Intake Total 0 / 0 1000 / 1000 Output Total 400 / 400 Balance -400 / -400 1000 / 1000 Weight 78.4 kg Intake: IV 0 / 0 1000 / 1000 D5W/1/2 NS Inj 1,000 ML @ 70 1000 / 1000 mls/hr IV.CONT .[id number] [facility] Rx# :[id number] NS Inj 250 ML @ 15 mls/hr IV. 0 / 0 SIG ONCE [facility] Rx#:[id number] Output: Urine Amount (Catheter) 400 / 400 Indwelling Urethral Catheter 400 / 400 Other: # Incontinent Voids 4 Date of Last Bowel Movement 05/28/18 # Bowel Movements 4 1 Narrative: GENERAL: Well Developed, no acute distress. SKIN: Focused skin assessment warm/dry. HEAD: Atraumatic. Normocephalic. EYES: Pupils equal and round. No scleral icterus. ENT: No nasal bleeding or discharge. Mucous membranes pink and moist. NECK: Trachea midline. No JVD. Supple. CARDIOVASCULAR: systolic heart Murmur, PVCs heard. RESPIRATORY: No accessory muscle use. clear to auscultation bilateral. GASTROINTESTINAL: Abdomen soft, diffusely tender, moderately distended. MUSCULOSKELETAL: No obvious deformities. No clubbing. No cyanosis. No edema. NEUROLOGICAL: Alert and oriented, talking in full sentences. moves four extremities, slow on the right side. PSYCHIATRIC: good affect. - Urinary Catheter Management Straight Cath placed during this visit: yes, but has since been removed by the nurse Reason for continuing: Decision to DC catheter Insertion date: 05/22/18 Insertion time: 04:00 Removal date: 05/22/18 Removal time: 04:20 Indwelling Urethral Catheter Cath placed during this visit: yes, but has since been removed by the nurse Reason for continuing: Decision to DC catheter Insertion date: 05/24/18 Insertion time: 18:45 Removal date: 05/27/18 Removal time: 15:00 Results - Labs CBC & Chem 7: 05/28/18 03:16 05/28/18 03:16 Laboratory Results - last 24 hr 05/26/18 05/27/18 05/27/18 10:25 09:23 12:03 WBC RBC Hgb Hct MCV MCH MCHC RDW Plt Count MPV Prelim Diff (Auto) Neut % (Auto) Lymph % (Auto) Gray % (Auto) Eos % (Auto) Baso % (Auto) Neut # (Auto) Lymph # (Auto) Gray # (Auto) Eos # (Auto) Baso # (Auto) WBC Differential Diff Scan Differential Comment Platelet Estimate Platelet Morphology Sodium Potassium Chloride Carbon Dioxide Anion Gap BUN Creatinine Estimated GFR POC Glucose 113 H 122 H 151 H Random Glucose Calcium Total Bilirubin AST ALT Alkaline Phosphatase Total Protein Albumin 05/27/18 05/27/18 05/27/18 18:10 23:31 23:41 WBC RBC Hgb Hct MCV MCH MCHC RDW Plt Count MPV Prelim Diff (Auto) Neut % (Auto) Lymph % (Auto) Gray % (Auto) Eos % (Auto) Baso % (Auto) Neut # (Auto) Lymph # (Auto) Gray # (Auto) Eos # (Auto) Baso # (Auto) WBC Differential Diff Scan Differential Comment Platelet Estimate Platelet Morphology Sodium Potassium Chloride Carbon Dioxide Anion Gap BUN Creatinine Estimated GFR POC Glucose 135 H 275 H 116 H Random Glucose Calcium Total Bilirubin AST ALT Alkaline Phosphatase Total Protein Albumin 05/28/18 05/28/18 05/28/18 03:16 03:16 08:07 WBC 4.8 RBC 3.67 L Hgb 13.0 Hct 38.6 L MCV 105.1 H MCH 35.4 H MCHC 33.7 RDW 14.9 Plt Count 36 L MPV 9.8 Prelim Diff (Auto) Slide review pending Neut % (Auto) 89.7 H Lymph % (Auto) 2.5 L Gray % (Auto) 7.7 Eos % (Auto) 0.0 Baso % (Auto) 0.1 Neut # (Auto) 4.3 Lymph # (Auto) 0.1 L Gray # (Auto) 0.4 Eos # (Auto) 0.0 Baso # (Auto) 0.0 WBC Differential . Diff Scan Auto diff confirmed Differential Comment . Platelet Estimate Low L Platelet Morphology Normal Sodium 133 L Potassium 4.7 Chloride 97 L Carbon Dioxide 27.5 Anion Gap 9 BUN 36 H Creatinine 0.76 Estimated GFR Greater than 89 POC Glucose 121 H Random Glucose 112 H Calcium 8.1 L Total Bilirubin 3.6 H AST 78 H ALT 176 H Alkaline Phosphatase 119 H Total Protein 5.2 L Albumin 2.0 L - Procedures Liver biopsy and Cryoablation of the Liver tumor, due to technical difficulty to see the mass was necessary to perform transpleural approach and left right chest tube to correct Hydropneumothorax. Assessment and Plan - Assessment (1) Arthritis Code(s): M19.90 - Unspecified osteoarthritis, unspecified site Status: Acute (2) Cataract Code(s): H26.9 - Unspecified cataract Status: Acute (3) Cirrhosis Code(s): K74.60 - Unspecified cirrhosis of liver Status: Acute (4) H/O rotator cuff surgery Code(s): Z98.890 - Other specified postprocedural states Status: Acute (5) HTN (hypertension) Code(s): I10 - Essential (primary) hypertension Status: Acute (6) PVD (peripheral vascular disease) Code(s): I73.9 - Peripheral vascular disease, unspecified Status: Acute - Plan 1. Hepatocellular Carcinoma sent by eye specialist Doctor Mark Anthony Live for Interventional Radiology management he has high risk for Biopsy, had today chemoembolization of tumors recently today brought in for Liver biopsy and Cryoablation of the Liver tumor, due to technical difficulty to see the mass was necessary to perform transpleural approach and left right chest tube to correct Hydropneumothorax. Chest tube removed this morning, improving on new CXR. okay from IR specialist for discharge. 2. Cirrhosis stable/Alcoholic Hepatitis 3. . Hypertension Controlled. 4. Acute ischemic Stroke discussed with doctor Finley initially, then with Doctor Tan, unable to give Aspirin due to severe Thrombocytopenia, has Aphasia with probable Acute Ischemic Stroke, he has CT neck showing moderate to severe carotid stenosis, consulted Vascular specialist, CTA brain negative, awaiting for MRI brain, seen by source water protection specialist due to elevated Troponin level, with diagnosis NSTEMI, permissive Hypertension allowed, discussed with nurse. PT/OT and Speech Therapy passed swallow test and asked for Aphasia evaluation. today improved Aphasia. working with PT specialist, will need rehab 5. Carotid Stenosis Vascular surgery consult 6. NSTEMI Cardiology following. 7. PAD by history 8. severe Thrombocytopenia given Transfusion by human resources support specialist. yesterday 24 to 41 today. Stable to transfer to Med Surg. DVT prophylaxis SCDs. Code Status: full Code. Discussed Condition With: Patient and nurse Miss Jennings Discharge Planning: discharge to Rehab once assessed and accepted.
[2018-05-28] MEDS: Dextrose 5%/NaCl 0.45% Inj 1,000 ML IV.CONT SCH (10:58)
[2018-05-29] MEDS: Dextrose 5%/NaCl 0.45% Inj 1,000 ML IV.CONT SCH ×2 (02:16→13:44)
[2018-05-29] MEDS: amLODIPine 5 MG Tablet PO SCH (08:31)
[2018-05-29] MEDS: Finasteride 5 MG Tablet PO SCH (08:31)
[2018-05-29] MEDS: Lisinopril 10 MG Tablet PO SCH (08:31)
--- NOTE | 2018-05-29 09:20 | P.PN ---
Subjective Interval history: This is a pleasant 72 y/o Male with Hepatocellular Carcinoma, who had Transarterial Chemoembolization on 05/12/18 status post Transpleural Liver Biopsy and Liver cryoablation, was placed a Right chest tube that then was removed and clear for discharge by Interventional Radiology, the patient developed Uncontrolled Hypertension and Hyperkalemia for this reason his discharged was held, on the day of discharge he developed acute mental changes, transferred to Intensive Care unit and consulted Neurology specialist Discussed with Neurology specialist unable to give Aspirin yesterday due to severe Thrombocytopenia, has Aphasia with probable Acute Ischemic Stroke, he has CT neck showing moderate to severe carotid stenosis, consulted Vascular specialist, CTA brain negative, awaiting for MRI brain, seen by coastal and estuary specialist due to elevated Troponin level, with diagnosis NSTEMI, permissive Hypertension. 05/26: Stable seen in his bedroom in the presence of nurse improving slowly his mental condition, passed swallow test started on diet, and also will get Aphasia evaluation, Neurology specialist and Cardiology following. 05/27: No acute distress, in his bedroom, did not wanted to eat his breakfast, at this time able to speak in complete sentences but continue, hesitate and find the right words to say something, no slurred speech improving condition. 05/28: Seen in his bedroom, stable working with Physical Therapy discussed with nurse Miss Jennings he is improving activity, speaking in full sentences, no Aphasia, okay to move from ICU to Medical floor. 05/29: Seen in his bedroom, no nausea, vomit or diarrhea, already ordered to be transferred to Rehab, awaiting CIR evaluation for transfer, discussed with patient in his bedroom, also with nurse. Physical Exam Vital signs: Vital Signs 05/28/18 12:00 05/28/18 16:00 05/28/18 20:00 Temperature 98.0 F 98.1 F 97.9 F Pulse Rate 94 H 93 H 88 Respiratory Rate 24 24 18 Blood Pressure 125/60 151/72 H 143/67 H Pulse Oximetry 97 96 95 05/28/18 21:06 05/29/18 00:00 05/29/18 04:00 Temperature 98.1 F 97.9 F Pulse Rate 82 79 Respiratory Rate 15 14 16 Blood Pressure 140/62 124/67 Pulse Oximetry 95 95 05/29/18 08:00 Temperature 97.7 F Pulse Rate 82 Respiratory Rate 28 H Blood Pressure 132/66 Pulse Oximetry 96 Intake & Output 05/28/18 05/29/18 05/29/18 18:59 06:59 18:59 Intake Total 1000 / 1000 1000 / 1000 Output Total Balance 1000 / 1000 999 / 999 Weight 79.2 kg Intake: IV 1000 / 1000 1000 / 1000 D5W/09/30 NS Inj 1,000 ML @ 70 1000 / 1000 1000 / 1000 mls/hr IV.CONT .[id number] [facility] Rx# :[id number] Output: Urine/Stool Mix Other: # Voids 1 # Incontinent Voids 4 1 # Urine Diapers 1 Date of Last Bowel Movement 05/28/18 05/28/18 05/29/18 # Bowel Movements 1 # Incontinent Bowel Movements 1 Narrative: GENERAL: Well Developed, no acute distress. SKIN: Focused skin assessment warm/dry. HEAD: Atraumatic. Normocephalic. EYES: Pupils equal and round. No scleral icterus. ENT: No nasal bleeding or discharge. Mucous membranes pink and moist. NECK: Trachea midline. No JVD. Supple. CARDIOVASCULAR: systolic heart Murmur, PVCs heard. RESPIRATORY: No accessory muscle use. clear to auscultation bilateral. GASTROINTESTINAL: Abdomen soft, diffusely tender, moderately distended. MUSCULOSKELETAL: No obvious deformities. No clubbing. No cyanosis. No edema. NEUROLOGICAL: Alert and oriented, talking in full sentences. moves four extremities, slow on the right side. PSYCHIATRIC: good affect. - Urinary Catheter Management Straight Cath placed during this visit: yes, but has since been removed by the nurse Reason for continuing: Decision to DC catheter Insertion date: 05/22/18 Insertion time: 04:00 Removal date: 05/22/18 Removal time: 04:20 Indwelling Urethral Catheter Cath placed during this visit: yes, but has since been removed by the nurse Reason for continuing: Decision to DC catheter Insertion date: 05/24/18 Insertion time: 18:45 Removal date: 05/27/18 Removal time: 15:00 Results - Labs CBC & Chem 7: 05/28/18 03:16 05/28/18 03:16 Laboratory Results - last 24 hr 05/28/18 05/28/18 05/29/18 17:35 21:11 08:36 POC Glucose 118 H 147 H 133 H - Procedures Liver biopsy and Cryoablation of the Liver tumor, due to technical difficulty to see the mass was necessary to perform transpleural approach and left right chest tube to correct Hydropneumothorax. Assessment and Plan - Assessment (1) Arthritis Code(s): M19.90 - Unspecified osteoarthritis, unspecified site Status: Acute (2) Cataract Code(s): H26.9 - Unspecified cataract Status: Acute (3) Cirrhosis Code(s): K74.60 - Unspecified cirrhosis of liver Status: Acute (4) H/O rotator cuff surgery Code(s): Z98.890 - Other specified postprocedural states Status: Acute (5) HTN (hypertension) Code(s): I10 - Essential (primary) hypertension Status: Acute (6) PVD (peripheral vascular disease) Code(s): I73.9 - Peripheral vascular disease, unspecified Status: Acute - Plan 1. Hepatocellular Carcinoma sent by academic guidance specialist Doctor Mark Anthony Live for Interventional Radiology management he has high risk for Biopsy, had today chemoembolization of tumors recently today brought in for Liver biopsy and Cryoablation of the Liver tumor, due to technical difficulty to see the mass was necessary to perform transpleural approach and left right chest tube to correct Hydropneumothorax. Chest tube removed this morning, improving on new CXR. okay from IR specialist for discharge. 2. Cirrhosis stable/Alcoholic Hepatitis 3. . Hypertension Controlled. 4. Acute ischemic Stroke discussed with doctor Finley initially, then with Doctor Dominick, unable to give Aspirin due to severe Thrombocytopenia, has Aphasia with probable Acute Ischemic Stroke, he has CT neck showing moderate to severe carotid stenosis, consulted Vascular specialist, CTA brain negative, awaiting for MRI brain, seen by coastal and estuary specialist due to elevated Troponin level, with diagnosis NSTEMI, permissive Hypertension allowed, discussed with nurse. PT/OT and Speech Therapy passed swallow test and asked for Aphasia evaluation. today improved Aphasia. working with PT specialist, will need rehab 5. Carotid Stenosis Vascular surgery consult 6. NSTEMI Cardiology following. 7. PAD by history 8. severe Thrombocytopenia given Transfusion by resource recovery specialist today 36 no signs of bleeding follow in am tomorrow. Stable to transfer to [facility] and from there to Rehab. DVT prophylaxis SCDs. Code Status: Full Code. Discussed Condition With: patient and nurse. Discharge Planning: discharge to Rehab once assessed and accepted.
[2018-05-30] MEDS: Dextrose 5%/NaCl 0.45% Inj 1,000 ML IV.CONT SCH ×3 (05:51→21:37)
[2018-05-30 08:36] LABS: Hemoglobin 13.4 gm/dL (13.0-17.0); Mean Corpuscular HGB Conc 34.3 % (32.0-36.0); Mean Corpuscular Hemoglobin 35.8 pg (27.0-34.0); Mean Corpuscular Volume 104.4 fL (80.0-100.0); Mean Platelet Volume 9.5 fL (7.0-11.0); Platelet Count 24 th/mm3 (150-450); Red Blood Count 3.74 mil/mm3 (4.50-5.90); Red Cell Distribution Width 15.2 % (11.6-17.2)
[2018-05-30] MEDS: Lisinopril 10 MG Tablet PO SCH (09:41)
[2018-05-30] MEDS: amLODIPine 5 MG Tablet PO SCH (09:41)
[2018-05-30] MEDS: Finasteride 5 MG Tablet PO SCH (09:41)
--- NOTE | 2018-05-30 11:19 | P.PN ---
Subjective Interval history: This is a pleasant 72 y/o Male with Hepatocellular Carcinoma, who had Transarterial Chemoembolization on 05/12/18 status post Transpleural Liver Biopsy and Liver cryoablation, was placed a Right chest tube that then was removed and clear for discharge by Interventional Radiology, the patient developed Uncontrolled Hypertension and Hyperkalemia for this reason his discharged was held, on the day of discharge he developed acute mental changes, transferred to Intensive Care unit and consulted Neurology specialist Discussed with Neurology specialist unable to give Aspirin yesterday due to severe Thrombocytopenia, has Aphasia with probable Acute Ischemic Stroke, he has CT neck showing moderate to severe carotid stenosis, consulted Vascular specialist, CTA brain negative, awaiting for MRI brain, seen by immunology specialist due to elevated Troponin level, with diagnosis NSTEMI, permissive Hypertension. 05/26: Stable seen in his bedroom in the presence of nurse improving slowly his mental condition, passed swallow test started on diet, and also will get Aphasia evaluation, Neurology specialist and Cardiology following. 05/27: No acute distress, in his bedroom, did not wanted to eat his breakfast, at this time able to speak in complete sentences but continue, hesitate and find the right words to say something, no slurred speech improving condition. 05/28: Seen in his bedroom, stable working with Physical Therapy discussed with nurse Miss Jennings he is improving activity, speaking in full sentences, no Aphasia, okay to move from ICU to Medical floor. 05/29: Seen in his bedroom, no nausea, vomit or diarrhea, already ordered to be transferred to Rehab, awaiting CIR evaluation for transfer, discussed with patient in his bedroom, also with nurse. 05/30 in bed pleasantly confused. Jaundiced. Feels very tired since he was not out of bed. However per physical therapy he was yesterday in the chair. Patient needs rehab. He is sleepy at this time. However denies any chest pain or shortness of breath. No abdominal pain. Has decreased appetite and is not eating. Did not have a bowel movement today. Physical Exam Vital signs: Vital Signs 05/29/18 12:00 05/29/18 16:00 05/29/18 20:00 Temperature 97.5 F L 97.5 F L 97.3 F L Pulse Rate 95 H 93 H 82 Respiratory Rate 28 H 17 18 Blood Pressure 129/60 145/65 H 131/61 Pulse Oximetry 97 97 95 05/30/18 00:00 05/30/18 04:00 05/30/18 08:00 Temperature 97.3 F L 97.3 F L 98.0 F Pulse Rate 90 92 H 84 Respiratory Rate 18 18 17 Blood Pressure 178/71 H 140/69 159/69 H Pulse Oximetry 95 95 98 Intake & Output 05/29/18 05/30/18 05/30/18 18:59 06:59 18:59 Intake Total 1000 / 1000 480 / 480 Balance 1000 / 1000 480 / 480 Intake: IV 1000 / 1000 D5W/1/2 NS Inj 1,000 ML @ 70 1000 / 1000 mls/hr IV.CONT .[id number] [facility] Rx# :[id number] Oral 480 / 480 Other: # Voids 4 Date of Last Bowel Movement 05/29/18 Narrative: GENERAL: 72 yo male, in bed appearing chronically ill, sleepy. SKIN: Focused skin assessment warm/dry. Jaundice HEAD: Atraumatic. Normocephalic. EYES: Pupils equal and round. No scleral icterus. ENT: No nasal bleeding or discharge. Mucous membranes pink and moist. NECK: Trachea midline. No JVD. Supple. CARDIOVASCULAR: systolic heart Murmur, PVCs heard. RESPIRATORY: No accessory muscle use. clear to auscultation bilateral. GASTROINTESTINAL: Abdomen soft, diffusely tender, moderately distended. MUSCULOSKELETAL: No obvious deformities. No clubbing. No cyanosis. No edema. NEUROLOGICAL: Alert and oriented, talking in full sentences. moves four extremities, slow on the right side. PSYCHIATRIC: good affect. - Urinary Catheter Management Straight Cath placed during this visit: yes, but has since been removed by the nurse Reason for continuing: Decision to DC catheter Insertion date: 05/22/18 Insertion time: 04:00 Removal date: 05/22/18 Removal time: 04:20 Indwelling Urethral Catheter Cath placed during this visit: yes, but has since been removed by the nurse Reason for continuing: Decision to DC catheter Insertion date: 05/24/18 Insertion time: 18:45 Removal date: 05/27/18 Removal time: 15:00 Results - Labs CBC & Chem 7: 05/30/18 07:44 05/28/18 03:16 Laboratory Results - last 24 hr 05/29/18 05/30/18 18:18 07:44 WBC 6.0 RBC 3.74 L Hgb 13.4 Hct 39.0 MCV 104.4 H MCH 35.8 H MCHC 34.3 RDW 15.2 Plt Count 24 L D MPV 9.5 POC Glucose 100 - Procedures Liver biopsy and Cryoablation of the Liver tumor, due to technical difficulty to see the mass was necessary to perform transpleural approach and left right chest tube to correct Hydropneumothorax. Assessment and Plan - Assessment (1) Arthritis Code(s): M19.90 - Unspecified osteoarthritis, unspecified site Status: Acute (2) Cataract Code(s): H26.9 - Unspecified cataract Status: Acute (3) Cirrhosis Code(s): K74.60 - Unspecified cirrhosis of liver Status: Acute (4) H/O rotator cuff surgery Code(s): Z98.890 - Other specified postprocedural states Status: Acute (5) HTN (hypertension) Code(s): I10 - Essential (primary) hypertension Status: Acute (6) PVD (peripheral vascular disease) Code(s): I73.9 - Peripheral vascular disease, unspecified Status: Acute - Plan Discussed Condition With: 1. Hepatocellular Carcinoma sent by emergency management program specialist Doctor Mark Anthony Live for Interventional Radiology management he has high risk for Biopsy, had today chemoembolization of tumors recently, he was brought in for Liver biopsy and Cryoablation of the Liver tumor, due to technical difficulty to see the mass was necessary to perform transpleural approach and left right chest tube to correct Hydropneumothorax. Chest tube removed, improving on new CXR. okay from IR specialist for discharge. 2. Cirrhosis stable/Alcoholic Hepatitis 3. Hypertension Controlled. 4. Acute ischemic Stroke discussed with doctor Finley initially, then with Doctor Dominick, unable to give Aspirin due to severe Thrombocytopenia, has Aphasia with probable Acute Ischemic Stroke, he has CT neck showing moderate to severe carotid stenosis, consulted Vascular specialist, CTA brain negative, awaiting for MRI brain, seen by immunology specialist due to elevated Troponin level, with diagnosis NSTEMI, permissive Hypertension allowed, discussed with nurse. PT/OT and Speech Therapy passed swallow test and asked for Aphasia evaluation. today improved Aphasia. working with PT specialist, will need rehab 5. Carotid Stenosis Vascular surgery consult 6. NSTEMI Cardiology following. 7. PAD by history 8. Severe Thrombocytopenia given Transfusion by nuisance wildlife specialist today 36 no signs of bleeding follow in am tomorrow. Stable to transfer to [facility] and from there to Rehab. DVT prophylaxis SCDs. Code Status: Full Code. Discussed Condition With: patient and nurse. Discharge Planning: DC when improves and cleared by hem onc discharge to Rehab once assessed and accepted.
[2018-05-31 07:45] LABS: Alanine Aminotransferase 163 U/L (12-78); Alkaline Phosphatase 147 U/L (45-117); Anion Gap 10 meq/L (5-15); Aspartate Aminotransferase 66 U/L (15-37); Blood Urea Nitrogen 53 mg/dL (7-18); Calcium 7.9 mg/dL (8.5-10.1); Carbon Dioxide 24.2 meq/L (21.0-32.0); Chloride 97 meq/L (98-107); Glomerular Filtration Rate 71 mL/min (>89); Glucose,Random 112 mg/dL (74-106); Sodium 131 meq/L (136-145); Total Protein 5.2 g/dL (6.4-8.2)
[2018-05-31 07:47] LABS: Potassium 5.7 meq/L (3.5-5.1)
--- NOTE | 2018-05-31 09:08 | P.PN ---
Subjective Interval history: In bed. Has some pain and swelling at the right arm at the IV site appears has been infiltrated. Discussed with the nurse and patient , keep arm elevated and apply compressions for now. The patient feels a little better today. Not eating much , no appetite. No fever or chills. No abd pain. Physical Exam Vital signs: Vital Signs 05/30/18 12:00 05/30/18 16:00 05/30/18 20:00 Temperature 97.1 F L 97.4 F L 97.6 F Pulse Rate 89 98 H 94 H Respiratory Rate 17 17 18 Blood Pressure 109/66 130/60 141/64 H Pulse Oximetry 97 96 96 05/31/18 00:00 05/31/18 08:00 Temperature 97.5 F L 96.7 F L Pulse Rate 89 81 Respiratory Rate 18 17 Blood Pressure 135/62 149/70 H Pulse Oximetry 95 94 L Intake & Output 05/30/18 05/31/18 05/31/18 18:59 06:59 18:59 Intake Total 360 / 360 1240 / 1240 Balance 360 / 360 1240 / 1240 Weight 79.2 kg Intake: IV 1000 / 1000 D5W/1/2 NS Inj 1,000 ML @ 70 1000 / 1000 mls/hr IV.CONT .[id number] [facility] Rx# :[id number] Oral 360 / 360 240 / 240 Other: # Voids 3 # Incontinent Voids 4 Date of Last Bowel Movement 05/30/18 05/30/18 # Bowel Movements 1 Narrative: GENERAL: 72 yo male, in bed appearing chronically ill, in nad. SKIN: Focused skin assessment warm/dry. Right arm with redness and swlling at the IV site appears infiltrated IV . IV is out. HEAD: Atraumatic. Normocephalic. EYES: Pupils equal and round. No scleral icterus. ENT: No nasal bleeding or discharge. Mucous membranes pink and moist. NECK: Trachea midline. No JVD. Supple. CARDIOVASCULAR: systolic heart Murmur, PVCs heard. RESPIRATORY: No accessory muscle use. clear to auscultation bilateral. GASTROINTESTINAL: Abdomen soft, diffusely tender, moderately distended. MUSCULOSKELETAL: No obvious deformities. No clubbing. No cyanosis. No edema. NEUROLOGICAL: Alert and oriented, talking in full sentences. moves four extremities, slow on the right side. PSYCHIATRIC: good affect. - Urinary Catheter Management Straight Cath placed during this visit: yes, but has since been removed by the nurse Reason for continuing: Decision to DC catheter Insertion date: 05/22/18 Insertion time: 04:00 Removal date: 05/22/18 Removal time: 04:20 Indwelling Urethral Catheter Cath placed during this visit: yes, but has since been removed by the nurse Reason for continuing: Decision to DC catheter Insertion date: 05/24/18 Insertion time: 18:45 Removal date: 05/27/18 Removal time: 15:00 Results - Labs CBC & Chem 7: 05/31/18 09:25 05/31/18 06:02 Laboratory Results - last 24 hr 05/30/18 05/31/18 07:44 06:02 WBC 6.0 RBC 3.74 L Hgb 13.4 Hct 39.0 MCV 104.4 H MCH 35.8 H MCHC 34.3 RDW 15.2 Plt Count 24 L D MPV 9.5 Sodium 131 L Potassium 5.7 H Chloride 97 L Carbon Dioxide 24.2 Anion Gap 10 BUN 53 H Creatinine 1.03 Estimated GFR 71 L Random Glucose 112 H Calcium 7.9 L Total Bilirubin 4.1 H AST 66 H ALT 163 H Alkaline Phosphatase 147 H Total Protein 5.2 L Albumin 2.0 L - Procedures Liver biopsy and Cryoablation of the Liver tumor, due to technical difficulty to see the mass was necessary to perform transpleural approach and left right chest tube to correct Hydropneumothorax. Assessment and Plan - Assessment (1) Arthritis Code(s): M19.90 - Unspecified osteoarthritis, unspecified site Status: Acute (2) Cataract Code(s): H26.9 - Unspecified cataract Status: Acute (3) Cirrhosis Code(s): K74.60 - Unspecified cirrhosis of liver Status: Acute (4) H/O rotator cuff surgery Code(s): Z98.890 - Other specified postprocedural states Status: Acute (5) HTN (hypertension) Code(s): I10 - Essential (primary) hypertension Status: Acute (6) PVD (peripheral vascular disease) Code(s): I73.9 - Peripheral vascular disease, unspecified Status: Acute
[2018-05-31 10:13] LABS: Baso % (Auto) 0.3 % (0.0-2.0); Hematocrit 38.5 % (39.0-51.0); Lymph # (Auto) 0.6 th/mm3 (1.0-4.8); Mean Corpuscular HGB Conc 33.6 % (32.0-36.0); Mean Corpuscular Hemoglobin 35.4 pg (27.0-34.0); Mean Corpuscular Volume 105.3 fL (80.0-100.0); Mean Platelet Volume 10.1 fL (7.0-11.0); Mono # (Auto) 0.2 th/mm3 (0.0-0.9); Mono % (Auto) 3.9 % (0.0-8.0); Neut # (Auto) 4.1 th/mm3 (1.8-7.7); Neut % (Auto) 83.8 % (16.0-70.0); Platelet Count 23 th/mm3 (150-450); Red Blood Count 3.66 mil/mm3 (4.50-5.90); Red Cell Distribution Width 15.3 % (11.6-17.2); White Blood Count 4.9 th/mm3 (4.0-11.0)
[2018-05-31] MEDS: Finasteride 5 MG Tablet PO SCH (10:28)
[2018-05-31] MEDS: Lisinopril 10 MG Tablet PO SCH (10:28)
[2018-05-31] MEDS: amLODIPine 5 MG Tablet PO SCH (10:28)
[2018-05-31 11:01] LABS: Lymphocytes 1 % (9-44); Monocytes 1 % (0-8)
[2018-05-31 11:02] LABS: Toxic Granulation 2+
[2018-05-31 11:03] LABS: Platelet Morphology Normal (Normal); Toxic Vacuolation Present
[2018-05-31] MEDS: Dextrose 5%/NaCl 0.45% Inj 1,000 ML IV.CONT SCH (15:30)
[2018-06-01] MEDS: Dextrose 5%/NaCl 0.45% Inj 1,000 ML IV.CONT SCH (04:01)
[2018-06-01 08:38] VITALS: BP 116/57; PULSE 114; RESP 19; TEMP 97.6; O2SAT 91
--- NOTE | 2018-06-01 09:55 | P.PNONC ---
Subjective Interval history: Ruth lieberman was called on patient as I was walking on the floor. CPR in progress. I have called the pt's and discussed with her current situation. Pt's spouse reports she will be on her way in. Objective Vital Signs/Intake & Output: Vital Signs 05/31/18 12:00 05/31/18 16:00 05/31/18 20:00 Temperature 97.6 F 97.2 F L 97.6 F Pulse Rate 94 H 92 H 99 H Respiratory Rate 17 17 20 Blood Pressure 133/64 132/63 118/52 L Pulse Oximetry 93 L 96 95 06/01/18 00:00 06/01/18 04:00 06/01/18 08:00 Temperature 97.5 F L 97.4 F L 97.6 F Pulse Rate 104 H 104 H 114 H Respiratory Rate 20 20 19 Blood Pressure 109/55 L 128/83 116/57 L Pulse Oximetry 93 L 93 L 91 L Intake & Output 05/31/18 06/01/18 06/01/18 18:59 06:59 18:59 Intake Total 1000 / 1000 1000 / 1000 Balance 1000 / 1000 1000 / 1000 Weight 174 lb 9.698 oz Intake: IV 1000 / 1000 1000 / 1000 D5W/1/2 NS Inj 1,000 ML @ 70 1000 / 1000 1000 / 1000 mls/hr IV.CONT .[id number] [facility] Rx# :[id number] Other: # Incontinent Voids 3 Date of Last Bowel Movement 05/31/18 05/31/18 Result Diagrams: 05/31/18 09:25 05/31/18 06:02 Laboratory Results: Laboratory Results - last 24 hr 05/31/18 06/01/18 09:25 09:23 WBC 4.9 RBC 3.66 L Hgb 13.0 Hct 38.5 L MCV 105.3 H MCH 35.4 H MCHC 33.6 RDW 15.3 Plt Count 23 L MPV 10.1 Prelim Diff (Auto) Slide review pending Neut % (Auto) 83.8 H Lymph % (Auto) 12.0 [place] % (Auto) 3.9 Eos % (Auto) 0.0 Baso % (Auto) 0.3 Neut # (Auto) 4.1 Lymph # (Auto) 0.6 L [place] # (Auto) 0.2 Eos # (Auto) 0.0 Baso # (Auto) 0.0 WBC Differential Manual diff final Seg Neuts % (Manual) 89 H Band Neuts % (Manual) 9 H Lymphocytes % (Manual) 1 L Monocytes % (Manual) 1 Abs Neuts (Manual) 4.8 Differential Comment . Toxic Granulation 2+ H Toxic Vacuolation Present H Platelet Estimate Low L Platelet Morphology Normal POC Glucose 78 Medications: Active Medications Generic Name Dose Route Start Last Admin Trade Name Freq PRN Reason Stop Dose Admin Amlodipine Besylate 5 mg 05/23/18 16:45 05/31/18 10:28 Norvasc PO 5 mg DAILY [facility] Administration Dexamethasone 4 mg 05/31/18 18:00 05/31/18 18:29 Decadron PO 4 mg TID [facility] Administration Dextrose 50 ml 05/26/18 00:47 05/26/18 01:01 D50w Vial IV.PUSH 25 ml UNSCH PRN Administration PER HYPOGLYCEMIA PROTOCOL Enalaprilat 1.25 mg 05/30/18 00:15 05/30/18 00:51 Vasotec Inj IV.PUSH 1.25 mg Q6H PRN Administration SYS BP GREATER THAN 160 MMHG Finasteride 5 mg 05/22/18 09:00 05/31/18 10:28 Proscar PO 5 mg DAILY [facility] Administration Dextrose/Sodium Chloride 1,000 mls @ 70 mls/hr 05/26/18 00:46 06/01/18 07:27 D5w/1/2 Ns Inj IV.CONT Infused .[id number] [facility] Infusion Lactulose 30 ml 05/22/18 09:00 05/31/18 10:28 Lactulose Liq PO 30 ml DAILY [facility] Administration Lisinopril 10 mg 05/22/18 09:00 05/31/18 10:28 Prinivil PO 10 mg DAILY [facility] Administration Morphine Sulfate 2 mg 05/25/18 16:28 05/26/18 10:50 Morphine Inj IV.PUSH 2 mg Q4H PRN Administration PAIN SCALE 6 TO 10 Ondansetron HCl 4 mg 05/27/18 21:37 05/30/18 17:43 Zofran Inj IV.PUSH 4 mg Q6H PRN Administration NAUSEA Oxycodone HCl 5 mg 05/21/18 16:27 05/31/18 21:29 Roxicodone PO 5 mg Q4H PRN Administration PAIN SCALE 1 TO 5
--- NOTE | 2018-06-01 10:30 | P.PNCC ---
Critical Care Event Note Code activated: Yes Narrative: Called to room CODE BLUE activated at 0921. Patient was found unresponsive. Initial rhythm was PEA bloody secretions back in mouth. Blood sugar was 78. No palpable pulses and chest compressions were initiated. Patient initially received epinephrine with normal saline bolus wide open. Pads were placed. Abated with ET tube with saturations between 81 and 90% post intubation. During the code, patient received epinephrine 1 mg every 3 minutes, 2 ampoules of sodium bicarbonate and 1 g calcium chloride. Approximately 20 minutes into code, patient was shockable rhythm. Coarse V. fib. Defibrillated with 200 J. Received 300 mg amiodarone x1. Chest compression continued with amiodarone given with no results. Code called at 0951. Discussed with Dr. Ladd who will notify . This case had a high probability of a clinically significant, sudden, or life threatening deterioration of this patient's condition which required my full and direct attention, intervention and personal management. Critical care time: 30 - 74 mins
--- NOTE | 2018-06-01 11:45 | P.DN ---
Discharge Sum: Prov - Provider Primary care physician: Chanda Petit Consults: 05/21/18 14:25 Consult to Hospitalist Routine Consulting Provider: Bro Enciso Reason for Consultation: ADMIT POST LIVER MICROWAVE EMBOLIZATION+CHEST TUBE PLACEMENT-MEDICAL MANAGEMENT Notified:: Service Spoke with:: Barbara Date Notified:: 05/21/18 Time Notified:: 14:29 Comments:: waiting manager operations and procurement back - ML Ordering Provider: COURTNEY 05/24/18 12:59 Consult to Oncology Routine Consulting Provider: Santos Mcdaniel Preferred Script Coordinator:: Mark Anthony Live Patient known to:: Mark Anthony Live Reason for Consultation: Patient known to you. Notified:: Service Spoke with:: Kiesha Date Notified:: 05/24/18 Time Notified:: 13:17 Ordering Provider: MAKI 05/24/18 20:09 Consult to Neurology Routine Consulting Provider: Lucie Prasad Reason for Consultation: STROKE ALERT Notified:: Service Date Notified:: 05/24/18 Time Notified:: 21:38 Comments:: Case was discussed with Dr. Finley by daytime attending Dr. Enciso - patient is not a candidate for TPA Ordering Provider: ABA 05/25/18 02:00 Consult to Cardiology Routine Consulting Provider: Errol Banda Does the patient have a Programs Manager who follows them?: No Preferred Pole Incisor Operator:: Repacker Physician Reason for Consultation: NSTEMI Notified:: Service Spoke with:: maggy Date Notified:: 05/25/18 Time Notified:: 03:43 Ordering Provider: ABA 05/25/18 16:28 HUB Only Consult Order Routine Consulting Provider: [facility] 05/27/18 15:47 Consult to Rehab Medicine Routine Consulting Provider: Alethea Fajardo Reason for Consultation: cva/right side weak and aphasia Notified:: Service Spoke with:: Tiesha Date Notified:: 05/27/18 Time Notified:: 15:50 Ordering Provider: EARLE Pronouncing clinician: Marquise Mayo Discharge Sum: Diag - PCOD Cause of : Cardiac arrest Discharge Sum: Summary - Date and Time Date of admission: 05/22/18 13:09 - Additional Data Family: at bedside Additional persons at bedside: dielectric press operator Attending/PCP notified?: Yes Attending physician: Chrissy Ladd MD Was code activated?: Yes Autopsy requested?: No ( high probability of a clinically significant, sudden, or life threatening )
--- NOTE | 2018-06-01 18:51 | P.DS ---
Date of admission: 05/22/18 13:09 Primary care physician: Chanda Petit Anticipated date of discharge: 05/24/18 Brief History from admission: This is a pleasant 72 y/o male with previous Alcohol abuse, Cirrhosis, who was seen initially in Emergency room due to abdominal distention, for 3-4 weeks history of worsening increase in abdominal girth, leg swelling, and abdominal discomfort. associated Nausea but no vomit, denied diarrhea, or fever , the workup in ER gave Cirrhosis he still drinking alcohol, CAT scan shows ascites with cirrhosis. No other acute intra-abdominal processes were identified. He apparently had been seen at [facility] for similar symptoms last week as well. Chest x-ray otherwise was unremarkable for any significant pulmonary edema. At this point, my plan would be to give him diuretics for his ascites. He will need to follow-up closely with his primary care physician and stop drinking alcohol. he has multiple masses on his liver and with suspected hepatocellular Carcinoma , and high risk for Biopsy was recommended to be followed and receive management by Interventional radiology at this time status post chemoembolization, he will remain in house for 23 hour observation by his Primary interventional electronic security specialist and discharge, will continue Radiation therapy. Today brought for Liver Biopsy and Cryoablation of the liver mass due to technical complications was necessary to perform Transpleural approach and left chest tube to the right chest. DS: Diagnosis - Discharge Diagnosis (1) Arthritis Status: Acute (2) Cataract Status: Acute (3) Cirrhosis Status: Acute (4) H/O rotator cuff surgery Status: Acute (5) HTN (hypertension) Status: Acute (6) PVD (peripheral vascular disease) Status: Acute (7) Thrombocytopenia Status: Acute (8) Coagulopathy Status: Acute (9) Hepatocellular carcinoma Status: Acute (10) Acute ischemic stroke Status: Acute (11) Severe thrombocytopenia Status: Acute (12) NSTEMI (non-ST elevated myocardial infarction) Status: Acute (13) PAD (peripheral artery disease) Status: Acute (14) PEA (Pulseless electrical activity) Status: Acute (15) Ventricular fibrillation Status: Acute (16) Active internal bleeding Status: Acute DS: Medications - Discharge Medications Prescriptions: amlodipine [Norvasc] 5 mg PO DAILY #30 tab DS: Summary Hospital Course: Patient with hepatocellular carcinom, sent by transcription specialist Doctor Mark Anthony Live for Interventional Radiology management he has high risk for Biopsy, had chemoembolization of tumors recently, he was brought in for Liver biopsy and Cryoablation of the Liver tumor, due to technical difficulty to see the mass was necessary to perform transpleural approach and left right chest tube to correct Hydropneumothorax. Chest tube removed, improving on new CXR. IR specialist signed off Patient with Cirrhosis stable/Alcoholic Hepatitis Hypertension Controlled. Acute ischemic Stroke discussed with doctor Tushar initially, then with Doctor Dominick, unable to give Aspirin due to severe Thrombocytopenia, has Aphasia with probable Acute Ischemic Stroke, he has CT neck showing moderate to severe carotid stenosis, consulted Vascular specialist, CTA brain negative, awaiting for MRI brain, seen by child care development specialist due to elevated Troponin level, with diagnosis NSTEMI, permissive Hypertension allowed, discussed with nurse. PT/OT and Speech Therapy passed swallow test and asked for Aphasia evaluation. today improved Aphasia. working with PT specialist, will need rehab Also with Carotid Stenosis Vascular surgery consult, NSTEMI Cardiology followed patient . PAD by history. Patient with coagulopathy severe thrombocytopenia and coagulopathy. He was tranfused platelets. Patient with Severe Thrombocytopenia given Transfusion by art therapy specialist. PLT low. patient however was spontaneously bleeding on 06/01/18 heavy equipment operator apprentice coughing blood. He was noted dessating with O2 sat in 60s . Halicat was called. Patient coded. was notified and she came at bedside. Accountant Auditor came at bedside, patient was resuscitated but unfortunately patient could not be saved. Patient with multiple medical problems, life threatening and at high risk of deteriorating. CYRUS DÍAZ was activated Dr Mayo otr driver run the code : Patient was found unresponsive. Initial rhythm was PEA bloody secretions back in mouth. Blood sugar was 78. No palpable pulses and chest compressions were initiated. Patient initially received epinephrine with normal saline bolus wide open. Pads were placed. Abated with ET tube with saturations between 81 and 90% post intubation. During the code, patient received epinephrine 1 mg every 3 minutes , 2 ampoules of sodium bicarbonate and 1 g calcium chloride. Approximately 20 minutes into code, patient was shockable rhythm. Coarse V. fib. Defibrillated with 200 J. Received 300 mg amiodarone x1. Chest compression continued with amiodarone given with no results. Code called at 0951 by otr driver. arrived at the hospital, I spoke with the . Arrangements there after by charge nurse, nolan;so Chaplan consulted. 1. Hepatocellular Carcinoma sent by transcription specialist Doctor Mark Anthony Live for Interventional Radiology management he has high risk for Biopsy, had chemoembolization of tumors recently, he was brought in for Liver biopsy and Cryoablation of the Liver tumor, due to technical difficulty to see the mass was necessary to perform transpleural approach and left right chest tube to correct Hydropneumothorax. Chest tube removed, improving on new CXR. okay from IR specialist for discharge. 2. Cirrhosis stable/Alcoholic Hepatitis 3. Hypertension Controlled. 4. Acute ischemic Stroke discussed with doctor Finley initially, then with Doctor Dominick, unable to give Aspirin due to severe Thrombocytopenia, has Aphasia with probable Acute Ischemic Stroke, he has CT neck showing moderate to severe carotid stenosis, consulted Vascular specialist, CTA brain negative, awaiting for MRI brain, seen by child care development specialist due to elevated Troponin level, with diagnosis NSTEMI, permissive Hypertension allowed, discussed with nurse. PT/OT and Speech Therapy passed swallow test and asked for Aphasia evaluation. today improved Aphasia. working with PT specialist, will need rehab 5. Carotid Stenosis Vascular surgery consult 6. NSTEMI Cardiology following. 7. PAD by history 8. Severe Thrombocytopenia given Transfusion by art therapy specialist. PLT low. patient however was spontaneously bleeding on 06/01/18 heavy equipment operator apprentice coughing blood. He was noted dessating with O2 sat in 60s . Halicat was called. Patient coded. was notified and she came at bedside. Accountant Auditor came at bedside , patient was resuscitated but unfortunately patient could not be saved. Patient with multiple medical problems, life threatening and at high risk of deteriorating. - Time Spent with Patient Total time spent providing and/or coordinating discharge services: Greater than 30 minutes - Quality: Stroke Last date observed well: 05/24/18 Last time observed well: 13:30 - Quality: VTE Deep Vein Thrombosis/Pulmonary Embolism Present on Admission: No Exam Vital signs: Vital Signs 05/31/18 20:00 06/01/18 00:00 06/01/18 04:00 Temperature 97.6 F 97.5 F L 97.4 F L Pulse Rate 99 H 104 H 104 H Respiratory Rate 20 20 20 Blood Pressure 118/52 L 109/55 L 128/83 Pulse Oximetry 95 93 L 93 L 06/01/18 08:00 Temperature 97.6 F Pulse Rate 114 H Respiratory Rate 19 Blood Pressure 116/57 L Pulse Oximetry 91 L Intake & Output 05/31/18 06/01/18 06/01/18 18:59 06:59 18:59 Intake Total 1000 / 1000 1000 / 1000 Balance 1000 / 1000 1000 / 1000 Weight 79.2 kg Intake: IV 1000 / 1000 1000 / 1000 D5W/1/2 NS Inj 1,000 ML @ 70 1000 / 1000 1000 / 1000 mls/hr IV.CONT .[id number] [facility] Rx# :[id number] Other: # Incontinent Voids 3 Date of Last Bowel Movement 05/31/18 05/31/18 Narrative: CODE BLUE was activated, run by otr driver Patient was found unresponsive. No palpable pulses Patient was resuscitated and pronounced at 09:51 code Results Procedures completed during hospitalization: Liver biopsy and Cryoablation of the Liver tumor, due to technical difficulty to see the mass was necessary to perform transpleural approach and left right chest tube to correct Hydropneumothorax. Labs on day of discharge: Labs from last 24 hours 06/01/18 09:23 POC Glucose 78 - Impressions ITS Impressions CT Guided Tissue Ablation 05/21/18 00:00 CONCLUSION: 1. Challenging but technically successful CT-guided microwave ablation requiring iatrogenic hydropneumothorax to establish window to the segment 8 mass. 2. The segment 7 mass did not retain radiodense beads from arterial embolization. Uncertain if this reflects a true lesion and therefore this lesion was not ablated. PLAN: Patient will be admitted for overnight observation and symptom management. Will require follow-up liver mass MRI examination in approximately 6 -8 weeks. Will consider additional treatments for the segment 7 mass pending MRI findings. Chest X-Ray 05/24/18 00:00 CONCLUSION: No acute cardiopulmonary disease identified. Head CTA 05/24/18 17:44 CONCLUSION: 1. No evidence of proximal intracranial steno-occlusive disease or intraluminal filling defect. 2. No evidence of aneurysm, vascular malformation or vasculopathy. Neck CTA 05/24/18 17:44 CONCLUSION: 1. Significant plaque identified in both carotid bifurcations with moderate to severe stenosis in the proximal right ICA and mild to moderate stenosis in the proximal left ICA. 2. Moderate to severe stenosis at the origin of the left subclavian artery secondary to calcified plaque. Degree of narrowing is in the 50-69% range. 3. Patent vertebral arteries. Head CT 05/24/18 17:48 CONCLUSION: 1. No evidence of acute infarct, hemorrhage, mass or edema. 2. Cerebral white matter hypodensity characteristic of chronic microvascular ischemic disease. Report was called by Curtis to Dr. Enciso at 18:18.] Abdomen/Pelvis CT 05/25/18 00:00 CONCLUSION: 1. Post ablation changes with increased density seen throughout the posterior segment of the right lobe of liver. 2. Distended gallbladder. 3. Colonic diverticula without inflammatory change. 4. Air seen within the urinary bladder lumen. There also appears to be some debris within the urinary bladder. Head MRI 05/25/18 00:00 CONCLUSION: 1. Numerous small peripheral areas of signal are not seen throughout the diffusion weighted images consistent with widespread peripheral areas of infarction involving both cerebral hemispheres and scattered in the cerebellum. 2. Small area of signal abnormality within the left thalamus likely from prior hemorrhage. 3. Multiple focal areas of demyelination likely from small vessel ischemic change. Discharge Plan - Discharge Disposition Patient Disposition: 20 - Discharge Order Discharge Orders: Discharge Order (Routine); Ordered 06/01/18 Ordered By: Chrissy Ladd Radiologist Clear for Discharge (Routine); Ordered 05/22/18 Ordered By: Christian Buchanan - Discharge Details Anticipated Discharge Date: 06/01/18 Discharge Comment: Follow up as scheduled with Interventional Radiology and transcription specialist. Date/Time: 06/01/18 12:09 - Physicians Team Attending Provider: Chrissy Ladd Other Providers: Mark Anthony Live MD ; Lucie Prasad MD ; Errol Banda MD ; [facility] ; Bro Enciso MD ; Alethea Fajardo MD - Rxs /Orders / Referrals /Forms Prescriptions: New amlodipine [Norvasc] 5 mg Tablet 5 mg PO DAILY Qty: 30 RF: 0 Continue dexamethasone 4 mg Tablet 4 mg PO TID finasteride 5 mg Tablet 5 mg PO DAILY lactulose 10 gram/15 mL Solution 1 g PO DAILY lisinopril 10 mg Tablet 10 mg PO DAILY oxycodone 5 mg Tablet 5 mg PO Q4H PRN (Reason: Pain) Qty: 18 RF: 0 prochlorperazine 10 mg PO TID tramadol 50 mg Tablet 50 mg PO Q6H Discontinued spironolactone 100 mg Tablet 100 mg PO DAILY - Discharge Instructions Patient Printed Instructions: Amlodipine (By mouth), Radiofrequency Ablation of the Liver (GEN)
== END 2018-06-01 12:09 | disposition expired ==
LOC: HRAD 09:55 → HRIP 09:57 → N07 17:57 → N03 05-24 18:12 → N07 05-29 16:41
PROVIDERS: ADMIT Hospitalist; ATTEND Hospitalist